=== PATIENT | male | born 1960 | race Caucasian/White ===

== ENCOUNTER 2023-06-05 14:27 | Emergency (ER) | payer OTHER, MEDICAID, SELFPAY ==
[2023-06-05] VITALS (12 sets, daily range): BP systolic 141–151; BP diastolic 72–73; PULSE 72–82; RESP 20–24; TEMP 36.6; O2SAT 87–100; BMI 45.9
--- NOTE | 2023-06-05 14:45 | DI.US.S_ITS ---
PROCEDURE: US PERIPH VENOUS LOW EXTREM RT INDICATIONS: EDEMA TECHNIQUE: Real-time imaging, as well as color and pulse Doppler interrogation, were performed of the lower extremity deep veins from the inguinal ligament to the popliteal fossa, with documentation of the visualized calf veins. COMPARISON: None. FINDINGS: The common femoral, femoral, and popliteal are normally compressible, and free of intraluminal thrombus. The calf veins could not be examined, secondary to pain in Александр's. Color and pulse Doppler demonstrate normal phasic intraluminal flow. There is normal augmentation response to distal compression maneuver. Multiple prominent right groin lymph nodes are seen. IMPRESSION: No findings of lower extremity deep venous thrombosis. Dictated by: Yuri Figueroa M.D. on 06/05/2023 at 16:29 Approved by: Yuri Figueroa M.D. on 06/05/2023 at 16:29
--- NOTE | 2023-06-05 14:45 | DI.RAD.S_ITS ---
PROCEDURE: XR CHEST 1V INDICATIONS: dyspnea TECHNIQUE: One view of the chest was acquired. COMPARISON: None. FINDINGS: Surgical changes and devices: None. Lungs and pleura: There is diffuse interstitial prominence bilaterally. No focal airspace opacities. No pleural effusion or pneumothorax. Mediastinum: Mediastinal contours appear normal. Heart size is enlarged. Bones and chest wall: No suspicious bony lesions. Overlying soft tissues appear unremarkable. IMPRESSION: Cardiomegaly and interstitial prominence suggesting congestive failure. Dictated by: Janette Mendoza M.D. on 06/05/2023 at 15:32 Approved by: Janette Mendoza M.D. on 06/05/2023 at 15:33
--- NOTE | 2023-06-05 14:49 | ED.EXTPRO ---
HPI - Extremity Problem General Chief complaint: Extremity Problem,Nontraumatic Stated complaint: R/leg swollen and red Time Seen by Provider: 06/05/23 14:38 Source: patient Mode of arrival: Wheelchair History of Present Illness HPI Narrative: 62-year-old male presents for right lower extremity redness and pain. Patient states that when he woke up this morning the leg was in his current condition. Incidentally found to be saturating 87% on room air. Patient states he is no diagnosed medical conditions. He states that every time he goes to different hospitals? they send me home with 6 or 7 different pills?, but he stopped taking them because he does not believe in regularly taking medicines. Uses smoke 2 packs of cigarettes daily, is down to 5 cigarettes daily. Related Data Previous Rx's Medication Instructions Recorded doxycycline hyclate 100 mg tablet 100 mg PO BID #14 tabs 06/05/23 clindamycin HCl 300 mg capsule 300 mg PO QID #40 caps 06/10/23 furosemide 40 mg tablet (Lasix) 40 mg PO DAILY #10 tabs 06/10/23 Allergies Allergy/AdvReac Type Severity Reaction Status Date / Time No Known Drug Allergies Allergy Verified 06/05/23 14:34 Review of Systems Review of Systems Narrative: Negative except as noted above Patient History Social History Smoking Status: Current some day smoker Smoking Status: Current some day smoker tobacco type: cigarettes Substance Use Type: marijuana Exam Initial Vital Signs Initial Vital Signs: Vital Signs Temperature 97.8 F 06/05/23 14:34 Pulse Rate 81 06/05/23 14:34 Respiratory Rate 22 06/05/23 14:34 Blood Pressure 141/73 H 06/05/23 14:34 Pulse Oximetry 87 L 06/05/23 14:34 Oxygen Delivery Method Room Air 06/05/23 14:34 Const: Awake, alert, no acute distress, appears chronically unwell, morbidly obese, hygiene poor Cardiac: regular rate, regular rhythm RESP: Bibasilar inspiratory crackles GI: Atraumatic, soft, obese, small reducible umbilical hernia MSK: Right lower extremity greater than left lower extremity, 3+ pitting edema to legs Skin: Warm, Dry, erythema right lower extremity Neuro: AO x3, CN II-XII grossly intact, moves all extremities Course Orders Ordered: Discontinued Medications Furosemide (Furosemide 40 Mg/4 Ml Vial) 40 mg IV NOW ONE Stop: 06/05/23 16:24 Last Admin: 06/05/23 16:32 Dose: 40 mg Documented By: ROSE Vital Signs Vital signs: Vital Signs - 8 hr 06/05/23 14:34 06/05/23 14:43 06/05/23 14:48 Temperature 97.8 F Pulse Rate 81 82 80 Pulse Rate [Right Dorsalis Pedis] Respiratory Rate 22 23 Blood Pressure 141/73 H Pulse Oximetry 87 L 96 98 Oxygen Delivery Method Room Air Nasal Cannula Oxygen Flow Rate 4 06/05/23 14:48 06/05/23 15:00 06/05/23 15:00 Temperature Pulse Rate 78 Pulse Rate [Right Dorsalis Pedis] Respiratory Rate Blood Pressure 148/73 H 150/72 H Pulse Oximetry 99 Oxygen Delivery Method Nasal Cannula Oxygen Flow Rate 4 06/05/23 15:23 06/05/23 15:24 06/05/23 15:30 Temperature Pulse Rate 78 Pulse Rate [Right Dorsalis Pedis] 74 Respiratory Rate 20 24 Blood Pressure Pulse Oximetry 94 100 Oxygen Delivery Method Nasal Cannula Nasal Cannula Oxygen Flow Rate 2 3 06/05/23 15:30 06/05/23 16:00 06/05/23 16:30 Temperature Pulse Rate 72 80 Pulse Rate [Right Dorsalis Pedis] Respiratory Rate 23 22 Blood Pressure 151/72 H Pulse Oximetry 100 95 Oxygen Delivery Method Oxygen Flow Rate 06/05/23 17:00 06/05/23 17:30 Temperature Pulse Rate 80 82 Pulse Rate [Right Dorsalis Pedis] Respiratory Rate 20 20 Blood Pressure Pulse Oximetry 94 93 Oxygen Delivery Method Oxygen Flow Rate MDM - Extremity (Nontraumatic) Differential Diagnosis Differential diagnosis: Likely cellulitis, deep venous thrombosis of upper extremity and lower extremity edema Lab Data 06/05/23 15:08 06/05/23 15:08 Labs: Lab Results 06/05/23 06/05/23 Range/Units 15:08 16:25 WBC 9.1 (4.5-11.0) X10^3/uL RBC 4.41 L (4.5-5.9) X10^6/uL Hgb 14.0 (13.5-17.5) g/dL Hct 41.5 (41-53) % MCV 93.9 (80-100) fL MCH 31.6 (26-34) PG MCHC 33.7 (30-36) % RDW 13.7 (11.6-14.8) % Plt Count 193 (150-400) X10^3/uL Neut % (Auto) 79.4 H (50-75) % Lymph % (Auto) 12.8 L (25-40) % [place] % (Auto) 6.7 (3-14) % Eos % (Auto) 0.8 L (2-4) % Baso % (Auto) 0.3 (0-2) % Neut # (Auto) 7200 H (0424-0538) /uL Lymph # (Auto) 1200 (5174-2683) /uL [place] # (Auto) 600 (0-900) /uL Eos # (Auto) 100 (0-450) /uL Baso # (Auto) 0 (0-100) /uL PT 14.7 H (9.4-12.5) SECONDS INR 1.3 (0.9-1.3) Sodium 136 L (137-145) mmol/L Potassium 3.4 (3.4-5.1) mmol/L Chloride 98 (98-107) mmol/L Carbon Dioxide 32 (22-32) mmol/L BUN 10 (9-20) mg/dL Creatinine 0.50 L (0.66-1.25) mg/dL Estimated GFR > 60 (>60) mL/min BUN/Creatinine Ratio 20.0 (6-22) Glucose 159 H (80-110) mg/dL Calcium 9.0 (8.4-10.2) mg/dL Magnesium 1.8 (1.6-2.3) mg/dL Total Bilirubin 0.7 (0.2-1.3) mg/dL AST 29 (17-59) IU/L ALT 25 (<50) IU/L Alkaline Phosphatase 125 (38-126) U/L Total Creatine Kinase 101 (55-170) U/L Troponin I < 0.012 (0.01-0.034) ng/mL NT-Pro-B Natriuret Pep 277 H (<125) pg/mL Total Protein 7.0 (6.3-8.2) g/dL Albumin 3.6 (3.5-5.0) g/dL Globulin 3.4 (1.7-4.1) g/dL Albumin/Globulin Ratio 1.1 (1.0-2.8) U Opiates 300ng/mL cut Negative (Negative) Ur Oxycodone Screen Negative (Negative) Urine Methadone Screen Negative (Negative) Ur Barbiturates Screen Negative (Negative) U Tricyclic Antidepress Negative (Negative) Ur Phencyclidine Scrn Negative (Negative) Ur Amphetamines Screen Positive H (Negative) U Methamphetamines Scrn Positive H (Negative) Ur MDMA Scrn (Ecstasy) Negative (Negative) U Benzodiazepines Scrn Negative (Negative) Urine Cocaine Screen Negative (Negative) U Marijuana (THC) Screen Negative (Negative) Ethyl Alcohol < 10 ( - 10) mg/dL MDM Narrative Medical decision making narrative: This is a chronically unwell appearing patient presenting for lower extremity pain and swelling, especially in his right lower extremity. Incidentally found to be hypoxemic at 87 on room air. Patient adamantly denies shortness of breath. Patient states that he used to be diagnosed with fluid overload, however he also states ?I would rather than take medications from a doctor every day, I'm just not like that. Strong dopplerable pulses in bilateral dorsalis pedis regions. Chest x-ray shows signs of volume overload and congestion, no acute infectious process. We will order a dose of Lasix. Laboratory work is reviewed, WBC count 9.1 with neutrophil 79% renal function normal, troponin negative. Pending ultrasound imaging. UDS positive for amphetamines. Patient has urinated well and is no longer hypoxic. Again patient states that he hates taking medications every day from doctors and does not want to start on a chronic medication. Ultrasound of the lower extremity shows no evidence of DVT. We will treat as cellulitis, however suspect that a, question of patient's lower extremity swelling and erythema is related to venous stasis. Discharge with doxycycline. ED return precautions discussed at bedside. Patient expressed understanding of the plan and is in agreement at this time. All questions answered at the time of discharge. Discharge Plan Departure Patient Disposition: Home Clinical Impression: Cellulitis Instructions: DI for Cellulitis -- Adult Prescriptions: New doxycycline hyclate 100 mg tablet 100 mg PO BID Qty: 14 0RF No Action clindamycin HCl 300 mg capsule 300 mg PO QID Qty: 40 0RF furosemide [Lasix] 40 mg tablet 40 mg PO DAILY Qty: 10 0RF Referrals: Miscellaneous,Doctor, MD [Primary Care Provider] - Stand Alone Forms: Patient Portal/API
[2023-06-05 15:24] LABS: Add Manual Diff / Slide Review NO; Basophils Absolute Auto 0 /uL (0-100); Basophils Percent Auto 0.3 % (0-2); Eosinophils Absolute Auto 100 /uL (0-450); Eosinophils Percent Auto 0.8 % (2-4); Hematocrit 41.5 % (41-53); Lymphocytes Absolute Auto 1200 /uL (1100-4500); Lymphocytes Percent Auto 12.8 % (25-40); Mean Corpuscular HGB Conc 33.7 % (30-36); Mean Corpuscular Hemoglobin 31.6 PG (26-34); Mean Corpuscular Volume 93.9 fL (80-100); Monocytes Absolute Auto 600 /uL (0-900); Monocytes Percent Auto 6.7 % (3-14); Neutrophils Absolute Auto 7200 /uL (1500-7000); Neutrophils Percent Auto 79.4 % (50-75); Platelet Count 193 X10^3/uL (150-400); Red Blood Cell Count 4.41 X10^6/uL (4.5-5.9); Red Cell Distribution Width 13.7 % (11.6-14.8); White Blood Cell Count 9.1 X10^3/uL (4.5-11.0)
[2023-06-05 15:31] LABS: INR 1.3 (0.9-1.3); Prothrombin Time 14.7 SECONDS (9.4-12.5)
[2023-06-05 15:49] LABS: Alanine Aminotransferase 25 IU/L (<50); Albumin 3.6 g/dL (3.5-5.0); Albumin Globulin Ratio 1.1 (1.0-2.8); Alkaline Phosphatase 125 U/L (38-126); Aspartate Aminotransferase 29 IU/L (17-59); Bilirubin Total 0.7 mg/dL (0.2-1.3); Blood Urea Nitrogen 10 mg/dL (9-20); Carbon Dioxide 32 mmol/L (22-32); Chloride 98 mmol/L (98-107); Creatine Kinase 101 U/L (55-170); Estimated Glomerular Filt Rate > 60 mL/min (>60); Globulin 3.4 g/dL (1.7-4.1); Glucose 159 mg/dL (80-110); HEMOLYSIS < 15 (0-50); Potassium 3.4 mmol/L (3.4-5.1); Sodium 136 mmol/L (137-145)
[2023-06-05 15:50] LABS: Ethanol (ETOH) < 10 mg/dL; Magnesium 1.8 mg/dL (1.6-2.3)
[2023-06-05 16:01] LABS: NT-proBNP (BNP-Adult 18+) 277 pg/mL (<125); Troponin I < 0.012 ng/mL (0.01-0.034)
[2023-06-05] MEDS: FUROSEMIDE 40 MG/4 ML VIAL IV (16:32)
[2023-06-05 16:37] LABS: UR Morphine/Opiate cutoff 300 Negative (Negative); Ur Creatinine Normal (Normal); Ur Specific Gravity Normal (Normal); Urine Amphetamines Positive (Negative); Urine Barbiturates Negative (Negative); Urine Benzodiazepines Negative (Negative); Urine Cocaine Negative (Negative); Urine MDMA Negative (Negative); Urine Methadone Negative (Negative); Urine Methamphetamines Positive (Negative); Urine Oxycodone Negative (Negative); Urine Phencyclidine Negative (Negative); Urine Tetrahydrocannabinol Negative (Negative); Urine Tricyclic Antidepressant Negative (Negative); Urine pH Normal (Normal)
--- NOTE | 2023-06-05 18:12 | PC.NURSE ---
pt yelling from room, requesting empty urinal, stating I'll pee on this bed and this ground it's not like I have to keep it up. you people are just out there talking and not doing shit.. verbal education attempted, pt cursing at staff, given urinal.
--- NOTE | 2023-06-05 18:29 | PC.NURSE ---
at time of d/c pt's IV site leaking on dc patient signature page, disposed of
== END 2023-06-05 18:30 | disposition home or self-care (01) ==
PROVIDERS: Emergency Provider Emergency Medicine
DX: L03.116 Cellulitis of left lower limb (principal); I51.7 Cardiomegaly
CPT/HCPCS: 71045; 80053; 80305; 80320; 82550; 83735; 83880; 84484; 85025; 85610; 93971; 96374; 99284; J1940

== ENCOUNTER 2023-06-10 11:13 | Emergency (ER) | payer OTHER, MEDICAID, SELFPAY ==
[2023-06-10 11:23] VITALS: BP 166/70; PULSE 76; RESP 18; TEMP 36.4; O2SAT 92; BMI 44.9
--- NOTE | 2023-06-10 11:39 | DI.RAD.S_ITS ---
PROCEDURE: XR CHEST 1V INDICATIONS: leg swelling TECHNIQUE: One view of the chest was acquired. COMPARISON: [facility], CR, XR CHEST 1V, 06/05/2023, 14:42. FINDINGS: Surgical changes and devices: None. Lungs and pleura: There are diffuse pulmonary interstitial markings and pulmonary vascular engorgement. Mediastinum: Mediastinal contours appear normal. Heart size is normal. Bones and chest wall: No suspicious bony lesions. Overlying soft tissues appear unremarkable. IMPRESSION: Interstitial pulmonary markings and vascular engorgement suggesting fluid overload. Dictated by: Janette Mendoza M.D. on 06/10/2023 at 12:11 Approved by: Janette Mendoza M.D. on 06/10/2023 at 12:11
[2023-06-10] MEDS: KETOROLAC 30 MG/ML VIAL IV (12:06)
[2023-06-10 12:18] LABS: Add Manual Diff / Slide Review NO; Basophils Absolute Auto 0 /uL (0-100); Basophils Percent Auto 0.5 % (0-2); Eosinophils Absolute Auto 100 /uL (0-450); Hematocrit 41.8 % (41-53); Lymphocytes Absolute Auto 1000 /uL (1100-4500); Lymphocytes Percent Auto 19.7 % (25-40); Mean Corpuscular HGB Conc 33.6 % (30-36); Mean Corpuscular Hemoglobin 31.1 PG (26-34); Mean Corpuscular Volume 92.6 fL (80-100); Monocytes Absolute Auto 200 /uL (0-900); Monocytes Percent Auto 4.6 % (3-14); Neutrophils Absolute Auto 3600 /uL (1500-7000); Neutrophils Percent Auto 73.2 % (50-75); Platelet Count 240 X10^3/uL (150-400); Red Blood Cell Count 4.51 X10^6/uL (4.5-5.9); Red Cell Distribution Width 13.6 % (11.6-14.8)
[2023-06-10 12:20] LABS: Lactate (Lactic Acid) 1.1 mmol/L (0.7-2.1)
[2023-06-10 12:21] LABS: Alanine Aminotransferase 20 IU/L (<50); Albumin 3.4 g/dL (3.5-5.0); Albumin Globulin Ratio 0.9 (1.0-2.8); Alkaline Phosphatase 106 U/L (38-126); Aspartate Aminotransferase 23 IU/L (17-59); BUN Creatinine Ratio 24.3 (6-22); Bilirubin Total 0.6 mg/dL (0.2-1.3); Blood Urea Nitrogen 18 mg/dL (9-20); Calcium 8.9 mg/dL (8.4-10.2); Carbon Dioxide 36 mmol/L (22-32); Chloride 98 mmol/L (98-107); Creatine Kinase 77 U/L (55-170); Estimated Glomerular Filt Rate > 60 mL/min (>60); Globulin 3.8 g/dL (1.7-4.1); Glucose 111 mg/dL (80-110); HEMOLYSIS < 15 (0-50); Lipase 31 U/L (23-300); Potassium 3.5 mmol/L (3.4-5.1); Sodium 136 mmol/L (137-145); Total Protein 7.2 g/dL (6.3-8.2)
[2023-06-10 12:33] LABS: NT-proBNP (BNP-Adult 18+) 197 pg/mL (<125); Troponin I < 0.012 ng/mL (0.01-0.034)
[2023-06-10 12:37] LABS: Procalcitonin 0.06 ng/mL (<0.5)
--- NOTE | 2023-06-10 12:52 | ED_ITS ---
HPI - Extremity Problem General Chief complaint: Extremity Problem,Nontraumatic Stated complaint: LEGS FEEL ON FIRE GETTING WORSE Time Seen by Provider: 06/10/23 11:23 Source: patient, RN notes reviewed and old records reviewed Mode of arrival: Ambulatory Limitations: no limitations History of Present Illness HPI Narrative: 62-year-old male history of hypertension, CHF who presents with complaint of lower extremity swelling that has been worsening and his legs feeling like they are on fire. Patient states he is had a history fluid overload in the past. He states he had some chills last night. He denies chest pain or pressure but has had some shortness of breath. He denies orthopnea but states that he is had increasing swelling of his bilateral lower extremities initially was more on the left but now has including the right. Patient states there is redness that has been spreading up his legs and he is had increasing edema over time. Patient states no nausea or vomiting. No diarrhea constipation. He is supposed to be on entero estero, diuretics states that he did take doxycycline he was prescribed. He a compound fracture in his leg that required a flap with a muscle in his left lower extremity in the past in 2012 timeframe. Patient states no other surgeries or cardiac interventions. No known drug allergies. He denies tobacco, occasional alcohol he denies any recreational drugs but had a positive UDS for amphetamines and methamphetamines on 06/05/2023 and is not on any medications that would be expected to make this positive. Related Data Previous Rx's Medication Instructions Recorded doxycycline hyclate 100 mg tablet 100 mg PO BID #14 tabs 06/05/23 clindamycin HCl 300 mg capsule 300 mg PO QID #40 caps 06/10/23 furosemide 40 mg tablet (Lasix) 40 mg PO DAILY #10 tabs 06/10/23 Allergies Allergy/AdvReac Type Severity Reaction Status Date / Time No Known Drug Allergies Allergy Verified 06/05/23 14:34 Review of Systems Review of Systems ROS Unobtainable: All systems reviewed & are unremarkable except as noted in HPI and below Patient History Social History Smoking Status: Current some day smoker Smoking Status: Current some day smoker tobacco type: cigarettes Substance Use Type: marijuana Exam Narrative Exam Narrative: GENERAL: Alert and oriented x three, obese male in mild distress. HEENT: Head normocephalic, atraumatic, EOMI, pupils reactive, face symmetric, moist mucous membranes NECK: Supple, full range of motion CARDIOVASCULAR: Regular rate and rhythm without murmurs, rubs or gallops. 2+ bilateral lower extremity edema. RESPIRATORY: Breath decreased bilaterally, no wheezes rales or rhonchi noted but exam is difficult secondary to habitus. ABDOMEN: Soft, nontender. Normoactive bowel sounds all 4 quadrants. No guarding or rebound, rigidity, no mass : No CVA tenderness EXTREMITIES: Normal range of motion, no clubbing, patient has swelling of bilateral feet extending up towards his knees and thighs. Patient does have appears to be some chronic venous stasis changes but with overlying erythema. There is small areas of skin breakdown small amount of weeping fluid. There are no large lacerations or wounds. Patient does have some deformity of the left calf consistent with his prior surgery.. Neurovascularly intact. Cap refill less than 2 seconds bilateral lower extremities. Patient has appropriate range of motion. He is tender to touch throughout. NEUROLOGICAL: Cranial nerves II through XII grossly intact. Moving all extremities SKIN: Warm, dry, no petechiae, please see note above. Initial Vital Signs Initial Vital Signs: Vital Signs Temperature 97.5 F L 06/10/23 11:23 Pulse Rate 76 06/10/23 11:23 Respiratory Rate 18 06/10/23 11:23 Blood Pressure 166/70 H 06/10/23 11:23 Pulse Oximetry 92 06/10/23 11:23 Oxygen Delivery Method Room Air 06/10/23 11:23 Course Orders Ordered: ED Orders 06/10/23 11:39 XR chest 1V Stat EKG-12 Lead Stat 06/10/23 11:55 Complete Blood Count AUTO DIFF Stat Comprehensive Metabolic Panel Stat Lactate (Lactic Acid) Stat Lipase Stat NT-proBNP (BNP-Adult 18+) Stat Procalcitonin Stat Troponin & CK Cardiac Panel Stat 06/10/23 12:49 Blood Culture Stat 06/10/23 14:32 Urine Drug Screen, Rapid Stat 06/10/23 14:57 Consult to [facility] [place] [facility] [employer] Consult[facility] Stat Discontinued Medications Furosemide (Furosemide 40 Mg/4 Ml Vial) 40 mg IV NOW ONE Stop: 06/10/23 13:03 Last Admin: 06/10/23 13:09 Dose: 40 mg Documented By: FIDEL Clindamycin Phosphate (Cleocin) 900 mg in 50 mls @ 50 mls/hr IV NOW ONE Stop: 06/10/23 14:02 Last Infusion: 06/10/23 14:13 Dose: Infused Documented By: Admin: 06/10/23 13:10 Dose: 50 mls/hr Documented By: FIDEL Ketorolac Tromethamine (Ketorolac 30 Mg/Ml Vial) 30 mg IV NOW ONE Stop: 06/10/23 12:03 Last Admin: 06/10/23 12:06 Dose: 30 mg Documented By: FIDEL Morphine Sulfate (Morphine 4 Mg/Ml Inj) 4 mg IV NOW ONE Stop: 06/10/23 13:03 Last Admin: 06/10/23 13:09 Dose: 4 mg Documented By: FIDEL Vital Signs Vital signs: Vital Signs - 8 hr 06/10/23 11:23 06/10/23 14:15 06/10/23 14:15 Temperature 97.5 F L Pulse Rate 76 71 71 Respiratory Rate 18 Blood Pressure 166/70 H 131/60 Pulse Oximetry 92 92 93 Oxygen Delivery Method Room Air Room Air 06/10/23 14:30 06/10/23 14:31 06/10/23 14:31 Temperature Pulse Rate 70 66 Respiratory Rate Blood Pressure 130/60 Pulse Oximetry 97 96 Oxygen Delivery Method Room Air MDM - Extremity (Nontraumatic) Lab Data 06/10/23 11:55 06/10/23 11:55 Labs: Lab Results 06/10/23 06/10/23 Range/Units 11:55 14:32 WBC 5.0 (4.5-11.0) X10^3/uL RBC 4.51 (4.5-5.9) X10^6/uL Hgb 14.0 (13.5-17.5) g/dL Hct 41.8 (41-53) % MCV 92.6 (80-100) fL MCH 31.1 (26-34) PG MCHC 33.6 (30-36) % RDW 13.6 (11.6-14.8) % Plt Count 240 (150-400) X10^3/uL Neut % (Auto) 73.2 (50-75) % Lymph % (Auto) 19.7 L (25-40) % [place] % (Auto) 4.6 (3-14) % Eos % (Auto) 2.0 (2-4) % Baso % (Auto) 0.5 (0-2) % Neut # (Auto) 3600 (6432-5060) /uL Lymph # (Auto) 1000 L (8367-6633) /uL [place] # (Auto) 200 (0-900) /uL Eos # (Auto) 100 (0-450) /uL Baso # (Auto) 0 (0-100) /uL Sodium 136 L (137-145) mmol/L Potassium 3.5 (3.4-5.1) mmol/L Chloride 98 (98-107) mmol/L Carbon Dioxide 36 H (22-32) mmol/L BUN 18 (9-20) mg/dL Creatinine 0.74 (0.66-1.25) mg/dL Estimated GFR > 60 (>60) mL/min BUN/Creatinine Ratio 24.3 H (6-22) Glucose 111 H (80-110) mg/dL Lactate 1.1 (0.7-2.1) mmol/L Calcium 8.9 (8.4-10.2) mg/dL Total Bilirubin 0.6 (0.2-1.3) mg/dL AST 23 (17-59) IU/L ALT 20 (<50) IU/L Alkaline Phosphatase 106 (38-126) U/L Total Creatine Kinase 77 (55-170) U/L Troponin I < 0.012 (0.01-0.034) ng/mL NT-Pro-B Natriuret Pep 197 H (<125) pg/mL Total Protein 7.2 (6.3-8.2) g/dL Albumin 3.4 L (3.5-5.0) g/dL Globulin 3.8 (1.7-4.1) g/dL Albumin/Globulin Ratio 0.9 L (1.0-2.8) Lipase 31 (23-300) U/L Procalcitonin 0.06 (<0.5) ng/mL U Opiates 300ng/mL cut Positive H (Negative) Ur Oxycodone Screen Negative (Negative) Urine Methadone Screen Negative (Negative) Ur Barbiturates Screen Negative (Negative) U Tricyclic Antidepress Negative (Negative) Ur Phencyclidine Scrn Negative (Negative) Ur Amphetamines Screen Positive H (Negative) U Methamphetamines Scrn Positive H (Negative) Ur MDMA Scrn (Ecstasy) Positive H (Negative) U Benzodiazepines Scrn Negative (Negative) Urine Cocaine Screen Negative (Negative) U Marijuana (THC) Screen Negative (Negative) Imaging Data Chest x-ray: Radiologist's Impression: [address] [address] XRay Report Signed Patient: Rudy Simon MR#: [id number] : 1960 Acct:[id number] Age/Sex: 62 / M Date of Service: 06/10/23 Loc: ED Accession Number: [id number] Procedure: XR chest 1V Ordering Provider: Dayanara Ruiz D.O. PROCEDURE: XR CHEST 1V INDICATIONS: leg swelling TECHNIQUE: One view of the chest was acquired. COMPARISON: [facility], , XR CHEST 1V, 06/05/2023, 14:42. FINDINGS: Surgical changes and devices: None. Lungs and pleura: There are diffuse pulmonary interstitial markings and pulmonary vascular engorgement. Mediastinum: Mediastinal contours appear normal. Heart size is normal. Bones and chest wall: No suspicious bony lesions. Overlying soft tissues appear unremarkable. IMPRESSION: Interstitial pulmonary markings and vascular engorgement suggesting fluid overload. Dictated by: Janette Mendoza M.D. on 06/10/2023 at 12:11 Approved by: Janette Mendoza M.D. on 06/10/2023 at 12:11 ECG Data Attestation EKG: I personally reviewed and interpreted this ECG as follows: Prior ECG tracings: not available for review Interpretation: Sinus rhythm rate of 67 OK 196 QRS of 112 and QTC of 467. No acute ST elevation or depression noted. No prior for comparison. MDM Narrative Medical decision making narrative: 62-year-old male reported hypertension and CHF in the past. Patient clinically appears to have CHF with overlying infection with chronic venous stasis changes. Patient's CBC does not show any leukocytosis hemoglobin of 14 platelets 240 electrolytes are appropriate renal functions appropriate causes 111. CO2 is 36. Lactate is 1.1 with negative troponin and a BNP of 197. But chest x-ray does show interstitial changes consistent with pulmonary edema. Patient had procalcitonin which was negative. DVT ultrasound of the left leg was negative on the . Patient patient's history I do not think we need to repeat this. Patient had a dose of Toradol states quite uncomfortable. We will give additional dose of pain medication. Woody here in the department and re- evaluation. Patient was hypoxic on last visit but has not been thus far today. Did obtain records from [facility]. Patient was seen in October of 2022. Had a 3 day ICU stay was found asleep in a [employer] truck in the ER driveway was found to have O2 sat of 60% lethargic was ultimately intubated with a acute respiratory failure after failure on BiPAP secondary to ongoing respiratory acidosis and ultimately believed to have congestive heart failure as the source of his symptoms. Patient was discharged home on farxiga, Entresto and torsemide. Patient states he has not been taking these medications. He did have an echo at that time which showed an EF of 60% normal right ventricle size, mildly dilated left ventricle. No pericardial effusion. And function no valvular abnormalities. On recheck patient appears more comfortable. He did have some hypoxia but intermittent. This was after some narcotic pain medication. Patient is quite adamant he does not wish to stay. He is open to being diuresed. He has medications at home including diuretics which he has not been taking since his discharge from [facility]. Discussed with patient he states he does not need a refill of diuretics but is open to the antibiotic. We discussed he does need to take them he needs to follow up with primary care because he likely needs to be on maintenance medications regularly. He expresses understanding. He is open to meeting with our [employer]OCIATE help set up primary care follow up as he states he lives in the area now. Discharge Plan Departure Patient Disposition: Home Clinical Impression: Congestive heart failure (CHF), Cellulitis of both lower extremities, Chronic venous stasis Instructions: DI for Heart Failure Activity Restrictions/Additional Instructions: Please follow-up with primary care. Use the resources provided by our social worker delinquency prevention today. Start taking the diuretics you were prescribed. Please take your other medications prescribed from [facility] as well. Prescription for antibiotic is included but I do not think your legs will improve until you take the diuretics in the swelling improves. Prescription sent to [facility] in [place]. Please return for new or worsening symptoms increasing swelling, new chest pain, shortness of breath, persistent vomiting, rapidly worsening swelling in her legs, fevers, increasing redness or other new or concerning changes. Prescriptions: New clindamycin HCl 300 mg capsule 300 mg PO QID Qty: 40 0RF furosemide [Lasix] 40 mg tablet 40 mg PO DAILY Qty: 10 0RF No Action doxycycline hyclate 100 mg tablet 100 mg PO BID Qty: 14 0RF Referrals: Miscellaneous,Doctor, MD [Primary Care Provider] - Stand Alone Forms: Patient Portal/API
[2023-06-10] MEDS: FUROSEMIDE 40 MG/4 ML VIAL IV (13:09)
[2023-06-10] MEDS: MORPHINE 4 MG/ML INJ IV (13:09)
[2023-06-10] MEDS: CLINDAMYCIN 900 MG/50 ML PIGGYBACK 50 MG IV (13:10)
[2023-06-10 14:15] VITALS: BP 131/60; PULSE 71; O2SAT 92; O2SAT 93
[2023-06-10 14:30] VITALS: PULSE 70; O2SAT 97
[2023-06-10 14:31] VITALS: BP 130/60; PULSE 66; O2SAT 96
[2023-06-10 14:57] LABS: UR Morphine/Opiate cutoff 300 Positive (Negative); Ur Creatinine Normal (Normal); Ur Specific Gravity Normal (Normal); Urine Amphetamines Positive (Negative); Urine Cocaine Negative (Negative); Urine Methamphetamines Positive (Negative); Urine Tetrahydrocannabinol Negative (Negative); Urine pH Normal (Normal)
[2023-06-10 14:58] LABS: Urine Barbiturates Negative (Negative); Urine Benzodiazepines Negative (Negative); Urine MDMA Positive (Negative); Urine Methadone Negative (Negative); Urine Oxycodone Negative (Negative); Urine Phencyclidine Negative (Negative); Urine Tricyclic Antidepressant Negative (Negative)
--- NOTE | 2023-06-10 15:26 | CM.SWNOTE ---
ED LEAK HUNTER Note LEAK HUNTER receives consult due to patient's need for PCP. Patient is 62 y/o male who presents to ED for the second time in a week due to concerns for cellulits on leg and leg pain. Patient is positive for Methamphetamine, Amphetamine, Opiates and MDMA but patient denies any recreational drug use. LEAK HUNTER enters room and patient endorses need for PCP. LEAK HUNTER calls local clinics and it is reported that they do not take patient's insurance. LEAK HUNTER conducts search on patient's insurance website and identifies [facility] in [place] as provider. LEAK HUNTER calls [facility] and schedules patient for ED f/u /establish care appt for 07/14/[address] Saba. It is reported that they will call patient if there are any cancellations and patient can be seen sooner. Patient endorses he has a vehicle and can transport himself. Plan: patient to d/c to home upon medical clearance, patient to f/u with PCP appt. Jenna Gallagher, PRODUCTION SUPPORT ENGINEER
== END 2023-06-10 15:28 | disposition home or self-care (01) ==
PROVIDERS: Emergency Provider Emergency Medicine
DX: I11.0 Hypertensive heart disease with heart failure (principal); I50.9 Heart failure, unspecified; L03.116 Cellulitis of left lower limb; L03.115 Cellulitis of right lower limb; I87.8 Other specified disorders of veins
CPT/HCPCS: 36415; 71045; 80053; 80305; 82550; 83605; 83690; 83880; 84145; 84484; 85025; 87040; 93005; 96365; 96375; 99284; J1885; J1940; J2270

== ENCOUNTER 2023-07-04 18:22 | Emergency (ER) | payer OTHER, MEDICAID, SELFPAY ==
[2023-07-04 18:51] VITALS: BP 145/76; PULSE 81; RESP 16; TEMP 36.7; O2SAT 91
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
[2023-07-04 19:30] VITALS: BP 145/76; PULSE 85; RESP 20; TEMP 36.7; O2SAT 91
== END 2023-07-04 19:41 | disposition home or self-care (01) ==
PROVIDERS: Emergency Provider Emergency Medicine
DX: K42.9 Umbilical hernia without obstruction or gangrene (principal); L03.116 Cellulitis of left lower limb; L03.115 Cellulitis of right lower limb
CPT/HCPCS: 99281

== ENCOUNTER 2023-08-24 17:21 | Emergency (ER) | payer OTHER, MEDICAID, SELFPAY ==
[2023-08-24] VITALS (7 sets, daily range): BP systolic 122–155; BP diastolic 62–83; PULSE 74–85; RESP 14–21; TEMP 36.6; O2SAT 90–98; BMI 43.6
--- NOTE | 2023-08-24 17:33 | DI.RAD.S_ITS ---
PROCEDURE: XR CHEST 1V INDICATIONS: suspected sepsis TECHNIQUE: One view of the chest was acquired. COMPARISON: [facility], CR, XR CHEST 1V, 06/10/2023, 11:41. FINDINGS: Surgical changes and devices: None. Lungs and pleura: Diffuse interstitial thickening bilaterally, chronic. No consolidations, significant pleural effusion or pneumothorax. Mediastinum: Moderate cardiomegaly without significant central venous congestion. Bones and chest wall: No suspicious bony lesions. Overlying soft tissues appear unremarkable. IMPRESSION: Cardiomegaly and diffuse interstitial thickening may indicate chronic CHF with underlying interstitial edema. This can also be seen in pneumonitis, viral or atypical. Dictated by: Hilda Wise M.D. on 08/24/2023 at 18:29 Approved by: Hilda Wise M.D. on 08/24/2023 at 18:30
[2023-08-24 18:02] LABS: Add Manual Diff / Slide Review NO; Basophils Absolute Auto 0 /uL (0-100); Basophils Percent Auto 0.8 % (0-2); Eosinophils Absolute Auto 100 /uL (0-450); Eosinophils Percent Auto 1.2 % (2-4); Hematocrit 45.4 % (41-53); Hemoglobin 15.4 g/dL (13.5-17.5); Lymphocytes Absolute Auto 1500 /uL (1100-4500); Lymphocytes Percent Auto 26.3 % (25-40); Mean Corpuscular Hemoglobin 31.2 PG (26-34); Mean Corpuscular Volume 91.7 fL (80-100); Monocytes Absolute Auto 400 /uL (0-900); Monocytes Percent Auto 6.8 % (3-14); Neutrophils Absolute Auto 3700 /uL (1500-7000); Neutrophils Percent Auto 64.9 % (50-75); Platelet Count 236 X10^3/uL (150-400); Red Blood Cell Count 4.95 X10^6/uL (4.5-5.9); Red Cell Distribution Width 14.3 % (11.6-14.8); White Blood Cell Count 5.7 X10^3/uL (4.5-11.0)
[2023-08-24] MEDS: SODIUM CHLORIDE 0.9% 1,000 ML 1000 ML IV (18:04)
[2023-08-24 18:08] LABS: PTT Partial Thromboplastin Tim 37 SECONDS (25.1-36.5)
--- NOTE | 2023-08-24 18:10 | ED.SKABFB ---
HPI - Skin/Abscess/Foreign Bdy General Chief complaint: Skin/Abscess/Foreign Body Stated complaint: left leg swelling Time Seen by Provider: 08/24/23 17:48 Source: patient Mode of arrival: Wheelchair Limitations: no limitations History of Present Illness HPI narrative: 63-year-old male with history of congestive heart failure on as needed oxygen, amphetamine use, morbid obesity presents by private vehicle for bilateral lower extremity swelling, [id number]. Seen several times for intermittent cellulitis. Patient states that he has been changing his Lasix regimen, sometimes taking less, sometimes taking more. 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 He intermittently will lift his legs up to help try to decrease the swelling, but this does not seem to help. Related Data Home Medications Medication Instructions Recorded Confirmed sacubitril 24 mg-valsartan 26 mg 1 tab PO BID 07/04/23 08/04/23 tablet (Entresto) Previous Rx's Medication Instructions Recorded furosemide 40 mg tablet (Lasix) 40 mg PO DAILY #10 tabs 06/10/23 fluocinolone 0.025 % topical cream 1 applic topical BID #15 grams 07/04/23 hydrocortisone 0.5 % topical cream 1 applic topical TID PRN rash 07/04/23 #28.4 grams clindamycin HCl 150 mg capsule 450 mg (3 x 150 mg) PO TID 7 days 08/24/23 #63 caps doxycycline hyclate 100 mg tablet 100 mg PO BID #14 tabs 08/24/23 tramadol 50 mg tablet 50 mg PO Q8H PRN pain #10 tabs 08/24/23 Allergies Allergy/AdvReac Type Severity Reaction Status Date / Time No Known Drug Allergies Allergy Verified 08/24/23 17:32 Review of Systems Review of Systems Narrative: Negative except as noted above Patient History Medical History Hx of open fracture Social History Smoking Status: Current some day smoker Smoking Status: Current some day smoker tobacco type: cigarettes Substance Use Type: marijuana and amphetamines Exam Initial Vital Signs Initial Vital Signs: Vital Signs Temperature 97.8 F 08/24/23 17:24 Pulse Rate 85 08/24/23 17:24 Respiratory Rate 18 08/24/23 17:24 Blood Pressure 125/83 08/24/23 17:24 Pulse Oximetry 92 08/24/23 17:24 Oxygen Delivery Method Room Air 08/24/23 17:24 Const: Awake, alert, no acute distress, appears chronically unwell, older than stated age Cardiac: regular rate, regular rhythm RESP: On supplemental nasal cannula, bibasilar crackles GI: Atraumatic, soft, nontender, nondistended, no rebound, no guarding MSK: Bilateral lower extremity pitting edema to thighs, venous stasis changes bilaterally, erythema to lateral aspect of left lower extremity without fluctuance Skin: Warm, Dry, cellulitis left distal lower extremity Neuro: AO x3, CN II-XII grossly intact, moves all extremities Course Orders Ordered: ED Orders 08/24/23 17:33 XR chest 1V Stat RT Consult Eval and Treat NOW 08/24/23 17:47 EKG-12 Lead Stat 08/24/23 17:50 Complete Blood Count AUTO DIFF Stat Comprehensive Metabolic Panel Stat Lactate (Lactic Acid) Stat Lipase Stat PTT Partial Thromboplastin Jeremy Stat Procalcitonin Stat Prothrombin Time INR Stat 08/24/23 18:08 Blood Culture Stat Discontinued Medications Furosemide (Furosemide 40 Mg/4 Ml Vial) 40 mg IV NOW ONE Stop: 08/24/23 18:31 Last Admin: 08/24/23 18:32 Dose: 40 mg Documented By: LARON Sodium Chloride (Normal Saline 0.9%) 1,000 mls @ 1,000 mls/hr IV BOLUS ONE Stop: 08/24/23 18:31 Last Infusion: 08/24/23 18:17 Dose: Infused Documented By: Infusion: 08/24/23 18:16 Dose: 0 mls/hr Documented By: Admin: 08/24/23 18:04 Dose: 1,000 mls/hr Documented By: LARON Furosemide 60 mg/ Sodium (Chloride) 56 mls @ 112 mls/hr IV NOW ONE Stop: 08/24/23 18:17 Last Admin: 08/24/23 18:29 Dose: Not Given Documented By: LARON Ondansetron HCl (Ondansetron 4 Mg/2 Ml Inj) 4 mg IV NOW PRN PRN Reason: Nausea And Vomiting Ondansetron HCl (Ondansetron 4 Mg Odt) 4 mg SL NOW PRN PRN Reason: Nausea And Vomiting Vital Signs Vital signs: Vital Signs - 8 hr 08/24/23 17:24 08/24/23 17:40 08/24/23 17:41 Temperature 97.8 F Pulse Rate 85 84 84 Respiratory Rate 18 17 21 Blood Pressure 125/83 Pulse Oximetry 92 Oxygen Delivery Method Room Air Oxygen Flow Rate 08/24/23 17:41 08/24/23 18:00 08/24/23 18:00 Temperature Pulse Rate 80 Respiratory Rate 14 Blood Pressure 141/75 H 138/62 Pulse Oximetry 90 L Oxygen Delivery Method Nasal Cannula Oxygen Flow Rate 3 08/24/23 18:30 08/24/23 18:30 08/24/23 19:00 Temperature Pulse Rate 74 77 Respiratory Rate Blood Pressure 122/66 Pulse Oximetry 98 91 Oxygen Delivery Method Nasal Cannula Oxygen Flow Rate 3 08/24/23 19:01 08/24/23 19:01 Temperature Pulse Rate 77 Respiratory Rate 18 Blood Pressure 155/83 H Pulse Oximetry 93 Oxygen Delivery Method Oxygen Flow Rate MDM - Skin/Abscess/Foreign Bdy Differential Diagnosis Differential diagnosis: Likely abscess of skin or subcutaneous tissue, viral exanthem and dermatophytosis Lab Data 08/24/23 17:50 08/24/23 17:50 Labs: Lab Results 08/24/23 Range/Units 17:50 WBC 5.7 (4.5-11.0) X10^3/uL RBC 4.95 (4.5-5.9) X10^6/uL Hgb 15.4 (13.5-17.5) g/dL Hct 45.4 (41-53) % MCV 91.7 (80-100) fL MCH 31.2 (26-34) PG MCHC 34.0 (30-36) % RDW 14.3 (11.6-14.8) % Plt Count 236 (150-400) X10^3/uL Neut % (Auto) 64.9 (50-75) % Lymph % (Auto) 26.3 (25-40) % [place] % (Auto) 6.8 (3-14) % Eos % (Auto) 1.2 L (2-4) % Baso % (Auto) 0.8 (0-2) % Neut # (Auto) 3700 (2303-3496) /uL Lymph # (Auto) 1500 (3436-1858) /uL [place] # (Auto) 400 (0-900) /uL Eos # (Auto) 100 (0-450) /uL Baso # (Auto) 0 (0-100) /uL PT 12.0 (9.4-12.5) SECONDS INR 1.0 (0.9-1.3) APTT 37 H (25.1-36.5) SECONDS Sodium 138 (137-145) mmol/L Potassium 3.5 (3.4-5.1) mmol/L Chloride 95 L (98-107) mmol/L Carbon Dioxide 36 H (22-32) mmol/L BUN 34 H (9-20) mg/dL Creatinine 1.02 (0.66-1.25) mg/dL Estimated GFR > 60 (>60) mL/min BUN/Creatinine Ratio 33.3 H (6-22) Glucose 132 H (80-110) mg/dL Lactate 1.0 (0.7-2.1) mmol/L Calcium 8.9 (8.4-10.2) mg/dL Total Bilirubin 0.6 (0.2-1.3) mg/dL AST 27 (17-59) IU/L ALT 29 (<50) IU/L Alkaline Phosphatase 112 (38-126) U/L Total Protein 8.1 (6.3-8.2) g/dL Albumin 3.9 (3.5-5.0) g/dL Globulin 4.2 H (1.7-4.1) g/dL Albumin/Globulin Ratio 0.9 L (1.0-2.8) Lipase 196 (23-300) U/L Procalcitonin 0.77 H (<0.5) ng/mL [facility] Narrative Medical decision making narrative: Patient is chronically unwell and presenting for recurrent cellulitis of his lower extremity. Patient has several concomitant problems: First problem is that he retains fluid due to intermittent use of his Lasix, 2nd problem is that he likely has venous stasis contributing to buildup of fluid, and he does have some evidence of cellulitis in his left lower extremity. Sepsis bundle was initiated on arrival, however we will hold fluids because patient does appear to be grossly volume overloaded, but saturating well on his usual as needed nasal cannula. IV Lasix ordered for diuresis. Laboratory work is reviewed. There is no leukocytosis, no left shift, electrolytes are normal. Chest x-ray confirms that patient does have mild pulmonary edema, however patient has already diuresed well after being given IV Lasix. Since procalcitonin is elevated at 0.77 we will treat with antibiotics. Patient states that he does not like doxycycline because it does not seem to work for him. Patient had success previously with clindamycin, and clindamycin sent to pharmacy of choice as well as a small amount of pain medications. Patient was advised to adhere to his diuretic schedule, to elevate his feet as much as possible to avoid worsening venous stasis, and to finish all antibiotics as prescribed. He was also strongly counseled to cease smoking and using illicit substances. Discharge Plan Departure Patient Disposition: Home Clinical Impression: Cellulitis, Cardiac volume overload, Venous stasis Instructions: DI for Cellulitis -- Adult, DI for Heart Failure, DI for Edema Due to Venous Stasis Activity Restrictions/Additional Instructions: Do not take the doxycycline. Take all of your lasix as prescribed. Prescriptions: New doxycycline hyclate 100 mg tablet 100 mg PO BID Qty: 14 0RF clindamycin HCl 150 mg capsule 450 mg PO TID 7 Days Qty: 63 0RF tramadol 50 mg tablet 50 mg PO Q8H PRN (Reason: pain) Qty: 10 0RF No Action furosemide [Lasix] 40 mg tablet 40 mg PO DAILY Qty: 10 0RF Entresto 24-26 mg tablet 1 tab PO BID fluocinolone 0.025 % cream 1 applic topical BID Qty: 15 3RF hydrocortisone 0.5 % cream 1 applic topical TID PRN (Reason: rash) Qty: 28.4 2RF Referrals: Miscellaneous,Doctor, MD [Primary Care Provider] - Stand Alone Forms: Patient Portal/API
[2023-08-24 18:11] LABS: Alanine Aminotransferase 29 IU/L (<50); Albumin 3.9 g/dL (3.5-5.0); Albumin Globulin Ratio 0.9 (1.0-2.8); Alkaline Phosphatase 112 U/L (38-126); Aspartate Aminotransferase 27 IU/L (17-59); BUN Creatinine Ratio 33.3 (6-22); Bilirubin Total 0.6 mg/dL (0.2-1.3); Blood Urea Nitrogen 34 mg/dL (9-20); Calcium 8.9 mg/dL (8.4-10.2); Carbon Dioxide 36 mmol/L (22-32); Chloride 95 mmol/L (98-107); Estimated Glomerular Filt Rate > 60 mL/min (>60); Globulin 4.2 g/dL (1.7-4.1); Glucose 132 mg/dL (80-110); HEMOLYSIS < 15 (0-50); Lipase 196 U/L (23-300); Potassium 3.5 mmol/L (3.4-5.1); Sodium 138 mmol/L (137-145); Total Protein 8.1 g/dL (6.3-8.2)
[2023-08-24 18:27] LABS: Procalcitonin 0.77 ng/mL (<0.5)
[2023-08-24] MEDS: FUROSEMIDE 40 MG/4 ML VIAL IV (18:32)
== END 2023-08-24 19:36 | disposition home or self-care (01) ==
PROVIDERS: Emergency Medicine; Emergency Provider Emergency Medicine
DX: L03.116 Cellulitis of left lower limb (principal); E87.79 Other fluid overload; I87.8 Other specified disorders of veins; Z79.01 Long term (current) use of anticoagulants
CPT/HCPCS: 36415; 71045; 80053; 83605; 83690; 84145; 85025; 85610; 85730; 87040; 93005; 96374; 99284; J1940

== ENCOUNTER 2024-07-31 12:06 | Inpatient (IN) | payer OTHER, SELFPAY ==
[2024-07-31] VITALS (41 sets, daily range): BP systolic 97–212; BP diastolic 53–107; PULSE 85–124; RESP 9–47; TEMP 37.3–39.6; O2SAT 79–99; BMI 51.1; BMI 48.2
--- NOTE | 2024-07-31 12:16 | ED.AMS ---
HPI - Altered Mental Status General Chief Complaint: Shortness of Breath/Dyspnea Stated Complaint: Weakness, URI symps Time Seen by Provider: 07/31/24 12:10 History of Present Illness HPI narrative: 63yoM with PMH CHF, amphetamine abuse, chronic lower extremity edema presents by EMS from his trailer for fever, generalized weakness. History is limited as patient is currently altered, he thinks that he is currently in [place], and thinks that it is April. EMS states that it took for personnel to carry the patient from his trailer as he was too weak to walk. Uncertain how long symptoms have gone on. EMS states that when they arrived the patient was saturating in the 70s on room air. He was placed on nasal cannula and transferred to the ER for evaluation. Related Data Home Medications Medication Instructions Recorded Confirmed sacubitril 24 mg-valsartan 26 mg 1 tab PO BID 07/04/23 09/29/23 tablet (Entresto) Previous Rx's Medication Instructions Recorded furosemide 40 mg tablet (Lasix) 40 mg PO DAILY #10 tabs 06/10/23 fluocinolone 0.025 % topical cream 1 applic topical BID #15 grams 07/04/23 hydrocortisone 0.5 % topical cream 1 applic topical TID PRN rash 07/04/23 #28.4 grams doxycycline hyclate 100 mg tablet 100 mg PO BID #14 tabs 08/24/23 tramadol 50 mg tablet 50 mg PO Q8H PRN pain #10 tabs 08/24/23 Allergies Allergy/AdvReac Type Severity Reaction Status Date / Time No Known Drug Allergies Allergy Verified 07/31/24 12:37 Patient History Medical History Hx of open fracture Social History Smoking Status: Current some day smoker Smoking Status: Current some day smoker tobacco type: cigarettes Exam Initial Vital Signs Initial Vital Signs: Vital Signs Temperature 99.1 F 07/31/24 12:05 Pulse Rate 124 H 07/31/24 12:05 Respiratory Rate 30 H 07/31/24 12:05 Blood Pressure 212/102 H 07/31/24 12:05 Pulse Oximetry 92 07/31/24 12:05 Oxygen Delivery Method Nasal Cannula 07/31/24 12:05 Oxygen Flow Rate 6 07/31/24 12:05 Const: Awake, alert, confused, appears chronically unwell Cardiac: Tachycardia, regular rhythm RESP: Decreased breath sounds bilaterally, on supplemental nasal cannula, no wheezes, no obvious rales/rhonchi GI: Soft, nontender, nondistended MSK: 3+ edema to thighs bilaterally, extensive chronic venous stasis changes Skin: Warm, Dry, intact, no rashes Neuro: AO x1, CN II-XII grossly intact, moves all extremities Course Orders Ordered: ED Orders 07/31/24 12:11 Respiratory Panel (Film Array) Stat 07/31/24 12:15 XR chest 1V Stat EKG-12 Lead Stat 07/31/24 12:25 Complete Blood Count AUTO DIFF Stat Comprehensive Metabolic Panel Stat Lactate (Lactic Acid) Stat NT-proBNP (BNP-Adult 18+) Stat Procalcitonin Stat Troponin & CK Cardiac Panel Stat 07/31/24 12:27 ABG [Arterial Blood Gas] STAT 07/31/24 12:30 Urinalysis and Microscopic Stat Urine Drug Screen, Rapid Stat 07/31/24 12:50 Consult to AIRCREWMAN - Pest Control Specialist Stat 07/31/24 13:06 Blood Culture Stat 07/31/24 14:16 CT angio chest PE protocol Stat 07/31/24 15:54 RT Consult Eval and Treat NOW 07/31/24 15:58 EC echo doppler complete Urgent Acetaminophen (Acetaminophen 325 Mg Tablet) 650 mg PO Q6H PRN PRN Reason: Fever/Mild Pain (1-3) Enoxaparin Sodium (Enoxaparin 40 Mg/0.4 Ml Syringe) 40 mg SUBCUT BID [facility] Famotidine (Famotidine 20 Mg/2 Ml Vial) 20 mg IV BID [facility] Ceftriaxone Sodium 2,000 mg/ (Sodium Chloride) 100 mls @ 200 mls/hr IV Q24H LORENZA Naloxone HCl (Naloxone 0.4 Mg/Ml Vial) 0.2 mg IV Q2MIN PRN PRN Reason: Opiate Reversal Vancomycin HCl (Vancomycin Per Pharmacy) 1 request MISC NOW PRN PRN Reason: sepsis Discontinued Medications Furosemide (Furosemide 40 Mg/4 Ml Vial) 40 mg IV NOW ONE Stop: 07/31/24 13:44 Last Admin: 07/31/24 13:48 Dose: 40 mg Documented By: SPF Hydralazine HCl (Hydralazine 20 Mg/Ml Vial) 10 mg IV NOW ONE Stop: 07/31/24 13:44 Last Admin: 07/31/24 13:48 Dose: 10 mg Documented By: SPF Ceftriaxone Sodium 2,000 mg/ (Sodium Chloride) 100 mls @ 200 mls/hr IV NOW ONE Stop: 07/31/24 12:16 Last Infusion: 07/31/24 14:00 Dose: Infused Documented By: Admin: 07/31/24 13:25 Dose: 200 mls/hr Documented By: SPF Acetaminophen (Ofirmev) 1,000 mg in 100 mls @ 400 mls/hr IV NOW ONE Stop: 07/31/24 12:29 Last Infusion: 07/31/24 13:49 Dose: Infused Documented By: Admin: 07/31/24 13:25 Dose: 400 mls/hr Documented By: SPF Vancomycin HCl/Dextrose (Vancomycin) 2,000 mg in 400 mls @ 200 mls/hr IV NOW ONE Stop: 07/31/24 16:12 Last Admin: 07/31/24 14:59 Dose: 200 mls/hr Documented By: PEGGY Ketorolac Tromethamine (Ketorolac 30 Mg/Ml Vial) 15 mg IV NOW ONE Stop: 07/31/24 15:04 Last Admin: 07/31/24 15:07 Dose: 15 mg Documented By: MLM Lidocaine HCl (Lidocaine 2% (Glydo) 6 Ml Gel) 6 ml TOP NOW ONE Stop: 07/31/24 14:01 Last Admin: 07/31/24 14:00 Dose: 6 ml Documented By: ADAM Vital Signs Vital signs: Vital Signs - 8 hr 07/31/24 12:05 07/31/24 12:25 07/31/24 12:30 Temperature 99.1 F Pulse Rate 124 H 115 H 119 H Respiratory Rate 30 H 35 H 29 H Blood Pressure 212/102 H Pulse Oximetry 92 89 L 93 Oxygen Delivery Method Nasal Cannula Nasal Cannula Nasal Cannula Oxygen Flow Rate 6 5 5 07/31/24 12:46 07/31/24 12:46 07/31/24 12:48 Temperature 99.5 F Pulse Rate 120 H 120 H Respiratory Rate 47 H 45 H Blood Pressure 212/107 H 212/107 H Pulse Oximetry 95 91 Oxygen Delivery Method Nasal Cannula Oximask Nasal Cannula Oxygen Flow Rate 5 6 07/31/24 13:00 07/31/24 13:08 07/31/24 13:08 Temperature Pulse Rate 122 H 123 H Respiratory Rate 37 H 37 H Blood Pressure 192/98 H Pulse Oximetry 79 L 92 Oxygen Delivery Method Room Air Oxygen Flow Rate 5 07/31/24 13:30 07/31/24 13:30 07/31/24 13:48 Temperature Pulse Rate 122 H 118 H Respiratory Rate 36 H Blood Pressure 201/91 H 201/91 H Pulse Oximetry 92 Oxygen Delivery Method Oxygen Flow Rate 07/31/24 13:53 07/31/24 13:53 07/31/24 14:00 Temperature Pulse Rate 119 H 116 H Respiratory Rate 9 L Blood Pressure 181/71 H Pulse Oximetry 93 88 L Oxygen Delivery Method Oximask Oxygen Flow Rate 8 07/31/24 14:01 07/31/24 14:01 07/31/24 14:05 Temperature Pulse Rate 117 H Respiratory Rate 16 Blood Pressure 109/63 97/53 L Pulse Oximetry 88 L Oxygen Delivery Method Oximask Oxygen Flow Rate 8 07/31/24 14:05 07/31/24 14:06 07/31/24 14:06 Temperature Pulse Rate 116 H 114 H Respiratory Rate 23 Blood Pressure 128/60 Pulse Oximetry 90 L 89 L Oxygen Delivery Method Oximask Oximask Oxygen Flow Rate 8 8 07/31/24 14:10 07/31/24 14:15 07/31/24 14:15 Temperature Pulse Rate 113 H Respiratory Rate Blood Pressure 128/60 Pulse Oximetry 88 L 91 Oxygen Delivery Method Nasal Cannula Oximask Oxygen Flow Rate 6 8 07/31/24 14:30 07/31/24 14:45 07/31/24 14:45 Temperature Pulse Rate 109 H 106 H Respiratory Rate 39 H Blood Pressure 136/60 Pulse Oximetry 92 94 Oxygen Delivery Method Oximask Oximask Oxygen Flow Rate 8 8 07/31/24 15:00 07/31/24 15:00 07/31/24 15:07 Temperature 102.9 F H 103.3 F H Pulse Rate 109 H Respiratory Rate 31 H Blood Pressure 194/95 H Pulse Oximetry 97 Oxygen Delivery Method Oximask Oxygen Flow Rate 8 07/31/24 15:30 07/31/24 15:31 07/31/24 15:31 Temperature 103.3 F H 103.3 F H Pulse Rate 108 H 107 H Respiratory Rate 32 H 30 H Blood Pressure 158/68 H Pulse Oximetry 97 96 Oxygen Delivery Method Oximask Oximask Oxygen Flow Rate 8 8 MDM - Altered Mental Status Lab Data 07/31/24 12:25 07/31/24 12:25 Labs: Lab Results 07/31/24 07/31/24 07/31/24 Range/Units 12:11 12:25 12:30 WBC 11.8 H (4.5-11.0) X10^3/uL RBC 5.09 (4.5-5.9) X10^6/uL Hgb 15.5 (13.5-17.5) g/dL Hct 46.8 (41-53) % MCV 91.9 (80-100) fL MCH 30.4 (26-34) PG MCHC 33.1 (30-36) % RDW 14.7 (11.6-14.8) % Plt Count 254 (150-400) X10^3/uL Neut % (Auto) 92.0 H (50-75) % Lymph % (Auto) 4.9 L (25-40) % Lipscomb % (Auto) 2.8 L (3-14) % Eos % (Auto) 0.0 L (2-4) % Baso % (Auto) 0.3 (0-2) % Neut # (Auto) 71310 H (5608-8185) /uL Lymph # (Auto) 600 L (6617-6173) /uL Lipscomb # (Auto) 300 (0-900) /uL Eos # (Auto) 0 (0-450) /uL Baso # (Auto) 0 (0-100) /uL Sodium 136 L (137-145) mmol/L Potassium 4.4 (3.4-5.1) mmol/L Chloride 96 L (98-107) mmol/L Carbon Dioxide 37 H (22-32) mmol/L BUN 17 (9-20) mg/dL Creatinine 0.90 (0.66-1.25) mg/dL Estimated GFR > 60 (>60) mL/min BUN/Creatinine Ratio 18.9 (6-22) Glucose 124 H (80-110) mg/dL Lactate 1.5 (0.7-2.1) mmol/L Calcium 8.6 (8.4-10.2) mg/dL Total Bilirubin 0.8 (0.2-1.3) mg/dL AST 40 (17-59) IU/L ALT 34 (<50) IU/L Alkaline Phosphatase 149 H (38-126) U/L Total Creatine Kinase 80 (55-170) U/L Troponin I < 0.012 (0.01-0.034) ng/mL NT-Pro-B Natriuret Pep 536 H (<125) pg/mL Total Protein 8.3 H (6.3-8.2) g/dL Albumin 4.1 (3.5-5.0) g/dL Globulin 4.2 H (1.7-4.1) g/dL Albumin/Globulin Ratio 1.0 (1.0-2.8) Procalcitonin 0.670 H (<0.5) ng/mL Urine Color Yellow Urine Appearance Clear Urine pH 6.5 (4.5-8.0) Ur Specific [place] 1.020 (1.000-1.035) Urine Protein 2+ H (Negative) Urine Glucose (UA) Negative (Negative) g/dL Urine Ketones Negative (NEGATIVE) Urine Occult Blood 1+ H (Negative) Urine Nitrate Negative (Negative) Urine Bilirubin Negative (NEGATIVE) Urine Urobilinogen 1.0 (0.2) E.U./dL Ur Leukocyte Esterase Negative (NEGATIVE) Urine RBC 5-10/hpf H (0-5/HPF) Urine WBC None seen (0-5/HPF) Ur Squamous Epith Cells None seen (0-5/HPF) Urine Bacteria None seen (None) Ur Culture Indicated? Cult not indicated Vol Urine Centrifuged 10ml (spun) U Opiates 300ng/mL cut Negative (Negative) Ur Oxycodone Screen Negative (Negative) Urine Methadone Screen Negative (Negative) Ur Barbiturates Screen Negative (Negative) U Tricyclic Antidepress Negative (Negative) Ur Phencyclidine Scrn Negative (Negative) Ur Amphetamines Screen Positive H (Negative) U Methamphetamines Scrn Positive H (Negative) Ur MDMA Scrn (Ecstasy) Negative (Negative) U Benzodiazepines Scrn Negative (Negative) Urine Cocaine Screen Negative (Negative) U Marijuana (THC) Screen Negative (Negative) Urine Specific [place] (Normal) Ur Creatinine (Normal) Chlamy pneumoniae PCR Not detected (Not Detect) Adenovirus (PCR) Not detected (Not Detect) B. pertussis DNA (PCR) Not detected (Not Detect) B.parapertussis DNA PCR Not detected (Not Detecte) Coronavirus OC43 (PCR) Not detected (Not Detect) Coronavirus HKU1 (PCR) Not detected (Not Detect) Coronavirus 229E (PCR) Not detected (Not Detect) SARS-CoV-2 (PCR) Not detected (Not Detecte) Coronavirus NL63 (PCR) Not detected (Not Detect) Human Metapneumovir PCR Not detected (Not Detect) Influenza Type A (PCR) Not detected (Not Detect) Influenza Type B (PCR) Not detected (Not Detect) M. pneumoniae (PCR) Not detected (Not Detect) Parainfluenza 1 (PCR) Not detected (Not Detect) Parainfluenza 2 (PCR) Not detected (Not Detect) Parainfluenza 3 (PCR) Not detected (Not Detect) Parainfluenza 4 (PCR) Not detected (Not Detect) RSV (PCR) Not detected (Not Detect) Entero/Rhino (PCR) Not detected (Not Detect) 07/31/24 Range/Units 12:30 WBC (4.5-11.0) X10^3/uL RBC (4.5-5.9) X10^6/uL Hgb (13.5-17.5) g/dL Hct (41-53) % MCV (80-100) fL MCH (26-34) PG MCHC (30-36) % RDW (11.6-14.8) % Plt Count (150-400) X10^3/uL Neut % (Auto) (50-75) % Lymph % (Auto) (25-40) % Lipscomb % (Auto) (3-14) % Eos % (Auto) (2-4) % Baso % (Auto) (0-2) % Neut # (Auto) (6469-1384) /uL Lymph # (Auto) (4984-7194) /uL Lipscomb # (Auto) (0-900) /uL Eos # (Auto) (0-450) /uL Baso # (Auto) (0-100) /uL Sodium (137-145) mmol/L Potassium (3.4-5.1) mmol/L Chloride (98-107) mmol/L Carbon Dioxide (22-32) mmol/L BUN (9-20) mg/dL Creatinine (0.66-1.25) mg/dL Estimated GFR (>60) mL/min BUN/Creatinine Ratio (6-22) Glucose (80-110) mg/dL Lactate (0.7-2.1) mmol/L Calcium (8.4-10.2) mg/dL Total Bilirubin (0.2-1.3) mg/dL AST (17-59) IU/L ALT (<50) IU/L Alkaline Phosphatase (38-126) U/L Total Creatine Kinase (55-170) U/L Troponin I (0.01-0.034) ng/mL NT-Pro-B Natriuret Pep (<125) pg/mL Total Protein (6.3-8.2) g/dL Albumin (3.5-5.0) g/dL Globulin (1.7-4.1) g/dL Albumin/Globulin Ratio (1.0-2.8) Procalcitonin (<0.5) ng/mL Urine Color Urine Appearance Urine pH Normal (4.5-8.0) Ur Specific [place] (1.000-1.035) Urine Protein (Negative) Urine Glucose (UA) (Negative) g/dL Urine Ketones (NEGATIVE) Urine Occult Blood (Negative) Urine Nitrate (Negative) Urine Bilirubin (NEGATIVE) Urine Urobilinogen (0.2) E.U./dL Ur Leukocyte Esterase (NEGATIVE) Urine RBC (0-5/HPF) Urine WBC (0-5/HPF) Ur Squamous Epith Cells (0-5/HPF) Urine Bacteria (None) Ur Culture Indicated? Vol Urine Centrifuged U Opiates 300ng/mL cut (Negative) Ur Oxycodone Screen (Negative) Urine Methadone Screen (Negative) Ur Barbiturates Screen (Negative) U Tricyclic Antidepress (Negative) Ur Phencyclidine Scrn (Negative) Ur Amphetamines Screen (Negative) U Methamphetamines Scrn (Negative) Ur MDMA Scrn (Ecstasy) (Negative) U Benzodiazepines Scrn (Negative) Urine Cocaine Screen (Negative) U Marijuana (THC) Screen (Negative) Urine Specific [place] Normal (Normal) Ur Creatinine Normal (Normal) Chlamy pneumoniae PCR (Not Detect) Adenovirus (PCR) (Not Detect) B. pertussis DNA (PCR) (Not Detect) B.parapertussis DNA PCR (Not Detecte) Coronavirus OC43 (PCR) (Not Detect) Coronavirus HKU1 (PCR) (Not Detect) Coronavirus 229E (PCR) (Not Detect) SARS-CoV-2 (PCR) (Not Detecte) Coronavirus NL63 (PCR) (Not Detect) Human Metapneumovir PCR (Not Detect) Influenza Type A (PCR) (Not Detect) Influenza Type B (PCR) (Not Detect) M. pneumoniae (PCR) (Not Detect) Parainfluenza 1 (PCR) (Not Detect) Parainfluenza 2 (PCR) (Not Detect) Parainfluenza 3 (PCR) (Not Detect) Parainfluenza 4 (PCR) (Not Detect) RSV (PCR) (Not Detect) Entero/Rhino (PCR) (Not Detect) Urine Dip Bedside Urine Glucose Negative Bedside Urine Bilirubin - Negative Bedside Urine Ketone - Negative Urine Specific [place] 1.015 Bedside Urine Occult Blood ++ Bedside Urine pH 6.5 Bedside Urine Protein ++ 100 Bedside Urine Urobilinogen - Negative Bedside Urine Nitrite - Negative Bedside Urine Leukocytes - Negative Esterase Imaging Data Extremity x-ray #1: Radiologist's Impression: PROCEDURE: XR CHEST 1V INDICATIONS: DYSPNEA, HYPOXIA TECHNIQUE: One view of the chest was acquired. COMPARISON: [facility], CR, XR CHEST 1V, 06/05/2023, 14:42. [facility], CR, XR CHEST 1V, 06/10/2023, 11:41. [facility], CR, XR CHEST 1V, 08/24/2023, 17:49. FINDINGS: Surgical changes and devices: None. Lungs and pleura: Generalized interstitial prominence can be seen. No pleural effusions or pneumothorax. Mediastinum: Mediastinal contours appear normal. Heart size is mildly enlarged. Bones and chest wall: No suspicious bony lesions. Age-appropriate bony degenerative changes are seen. Overlying soft tissues appear unremarkable. IMPRESSION: Cardiomegaly. CHF is Dictated by: Yuri Figueroa M.D. on 07/31/2024 at 12:35 Approved by: Yuri Figueroa M.D. on 07/31/2024 at 12:36 CT scan - chest: Radiologist's Impression: PROCEDURE: CT ANGIO CHEST PE PROTOCOL INDICATIONS: DYSPNEA, HYPOXIA, TACHYCARDIA TECHNIQUE: After the administration of intravenous contrast, 2 mm thick sections acquired from the pulmonary apices to the posterior costophrenic angles. 3-dimensional maximum intensity projection (MIP) coronal and sagittal reformats were then acquired through the thorax. For radiation dose reduction, the following was used: automated exposure control, adjustment of mA and/or kV according to patient size. COMPARISON: None. FINDINGS: Image quality: Diagnostic. Pulmonary arteries: Dilated main pulmonary artery, suggestive of pulmonary hypertension. Poor contrast opacification of the pulmonary arteries limits evaluation. No findings concerning for large central pulmonary embolism. Evaluation of the more distal pulmonary arteries is limited. Lower Neck: No enlarged lymph nodes. Thyroid: No thyroid nodules which require sonographic follow up, per consensus guidelines. Axillae: No enlarged lymph nodes. Chest Wall: Unremarkable. Bones: Unremarkable. Lungs and Pleura: No pneumothorax or pleural effusions. Linear atelectasis versus scarring at the lung bases. Otherwise, no focal pulmonary consolidations. Left upper lobe perifissural nodule measuring 6 mm, likely an intrapulmonary lymph node. Heart: Heart size is normal. No pericardial effusion. Thoracic Vessels: No aortic aneurysm. Mediastinum and Natacha: No enlarged lymph nodes. Esophagus: No wall thickening. No hiatal hernia. Upper Abdomen: Visualized upper abdomen solid organs and bowel loops appear normal. IMPRESSION: Poor contrast opacification of the pulmonary arteries limits evaluation. No findings concerning for large central pulmonary embolism. Evaluation of more distal pulmonary arteries is limited. Dilated main pulmonary artery, suggestive of pulmonary hypertension. No focal pulmonary consolidations. Linear atelectasis versus scarring at the lung bases. Left upper lobe perifissural nodule measuring 6 mm, likely an intrapulmonary lymph node. Dictated by: Justen Quick M.D. on 07/31/2024 at 15:01 Approved by: Justen Quick M.D. on 07/31/2024 at 15:06 [facility] Narrative Medical decision making narrative: Ill-appearing patient with several days of symptoms. Febrile and hypoxic on exam. Patient has history of congestive heart failure, bilateral chronic lower extremity swelling and frequently gets lower extremity cellulitis. Legs do appear to be erythematous, however not certain if this is cellulitis versus patient's chronic venous congestion. Sepsis order set initiated. Rocephin ordered empirically for coverage. IV fluids held due to history of congestive heart failure and lower extremity edema present on exam. Laboratory work reviewed: WBC count 11.8, hemoglobin 15.5, platelet count 254, neutrophil percentage 92%, sodium 136, potassium 4.4, creatinine 0.9, normal liver enzymes. Troponin undetectable, procalcitonin 0.670. Chest x-ray shows some volume overload, however not enough to explain the patient's current level hypoxia. He is refusing for respiratory therapy to obtain an ABG. Saturations remained borderline on nasal cannula, patient consented to OxyMask. IV Lasix ordered. No obvious other source of infection based on imaging findings with far. To cover for possible cellulitis vancomycin added to Rocephin. CT angio shows no central pulmonary thrombus. Patient saturations remained stable on OxyMask. Diuresing on Lasix. Plan to admit for further treatment. Discharge Plan Departure Patient Disposition: Admitted As Inpatient Clinical Impression: Acute hypoxemic respiratory failure, Fever, Amphetamine use Admit Date/Time: 07/31/24 15:54 Admit Provider: Olive Forman
--- NOTE | 2024-07-31 12:25 | PC.NURSE ---
RT at bedside to perform ABG. Pt is refusing ABG. RT Servando notified Dr. Henderson of refusal. Dr. Henderson states if pt is worsening the ABG will be revisited.
--- NOTE | 2024-07-31 12:35 | EKG_ITS ---
[address] [address] [address] [place] [address] Test Date: 2024-07-31 Pat Name: Rudy Simon Department: Room: Gender: Male Certified Alcohol Drug Counselor: LAWSON : 1960 Requested By: Order Number: [id number] Reading MD: Anjum Elliott Measurements Intervals [place] Rate: 118 P: 46 OK: 184 QRS: 94 QRSD: 86 T: 34 QT: 300 QTc: 420 Interpretive Statements Sinus tachycardia Rightward axis Electronically Signed On 08-02-2024 9:43:15 PST by Anjum Elliott
--- NOTE | 2024-07-31 12:40 | PC.NURSE ---
Pt is confused and answers short responses to questions. I asked if pt uses oxygen at home, pt responds I used to use oxygen but they took it away. Pt requires frequent reorientation as to situation. He states we are in [place]. When asked how long pt has been sick he states my whole life. 2 days. 2 months. I dont know. Pt lives at home alone in his trailer. A neighbor was concerned for him and asked the fire department to check on him. Pt initially appears cyanotic in face and lips. He is on 6L NC.
[2024-07-31 12:41] LABS: Add Manual Diff / Slide Review NO; Basophils Absolute Auto 0 /uL (0-100); Basophils Percent Auto 0.3 % (0-2); Eosinophils Absolute Auto 0 /uL (0-450); Hematocrit 46.8 % (41-53); Hemoglobin 15.5 g/dL (13.5-17.5); Lymphocytes Absolute Auto 600 /uL (1100-4500); Lymphocytes Percent Auto 4.9 % (25-40); Mean Corpuscular HGB Conc 33.1 % (30-36); Mean Corpuscular Hemoglobin 30.4 PG (26-34); Mean Corpuscular Volume 91.9 fL (80-100); Monocytes Absolute Auto 300 /uL (0-900); Monocytes Percent Auto 2.8 % (3-14); Neutrophils Absolute Auto 10900 /uL (1500-7000); Platelet Count 254 X10^3/uL (150-400); Red Blood Cell Count 5.09 X10^6/uL (4.5-5.9); Red Cell Distribution Width 14.7 % (11.6-14.8); White Blood Cell Count 11.8 X10^3/uL (4.5-11.0)
[2024-07-31 12:51] LABS: Lactate (Lactic Acid) 1.5 mmol/L (0.7-2.1)
[2024-07-31 12:52] LABS: Alanine Aminotransferase 34 IU/L (<50); Albumin 4.1 g/dL (3.5-5.0); Alkaline Phosphatase 149 U/L (38-126); Aspartate Aminotransferase 40 IU/L (17-59); BUN Creatinine Ratio 18.9 (6-22); Bilirubin Total 0.8 mg/dL (0.2-1.3); Blood Urea Nitrogen 17 mg/dL (9-20); Calcium 8.6 mg/dL (8.4-10.2); Carbon Dioxide 37 mmol/L (22-32); Chloride 96 mmol/L (98-107); Creatine Kinase 80 U/L (55-170); Estimated Glomerular Filt Rate > 60 mL/min (>60); Globulin 4.2 g/dL (1.7-4.1); Glucose 124 mg/dL (80-110); HEMOLYSIS < 15 (0-50); Potassium 4.4 mmol/L (3.4-5.1); Sodium 136 mmol/L (137-145); Total Protein 8.3 g/dL (6.3-8.2)
[2024-07-31 12:54] LABS: Appearance Urine UA CLEAR; Bilirubin Urine UA NEGATIVE (NEGATIVE); Color Urine UA YELLOW; Glucose Urine UA NEGATIVE (Negative); Ketones Urine UA NEGATIVE (NEGATIVE); Leukocyte Esterase Urine UA NEGATIVE (NEGATIVE); Nitrite Urine UA NEGATIVE (Negative); Occult Blood Urine UA 1+ (Negative); Protein Urine UA 2+ (Negative); pH Urine UA 6.5 (4.5-8.0)
[2024-07-31 12:58] LABS: Ur Creatinine Normal (Normal); Ur Specific Gravity Normal (Normal); Urine Amphetamines Positive (Negative); Urine Barbiturates Negative (Negative); Urine Benzodiazepines Negative (Negative); Urine Cocaine Negative (Negative); Urine MDMA Negative (Negative); Urine Methadone Negative (Negative); Urine Methamphetamines Positive (Negative); Urine Opiates Negative (Negative); Urine Oxycodone Negative (Negative); Urine Phencyclidine Negative (Negative); Urine THC Negative (Negative); Urine Tricyclic Antidepressant Negative (Negative); Urine pH Normal (Normal)
[2024-07-31 13:04] LABS: NT-proBNP (BNP-Adult 18+) 536 pg/mL (<125); Troponin I < 0.012 ng/mL (0.01-0.034)
[2024-07-31 13:13] LABS: Bacteria Urine None Seen; Culture Indicated Urine Cult Not Indicated; RBC Urine 5-10/HPF (0-5/HPF); Squamous Epithelial Cell Urine None Seen (0-5/HPF); Urine Volume 10mL (spun); WBC Urine None Seen (0-5/HPF)
[2024-07-31 13:22] LABS: Adenovirus Not Detected (Not Detect); B. parapertussis Not Detected (Not Detecte); Bordetella pertussis Not Detected (Not Detect); Chlamydophila pneumoniae Not Detected (Not Detect); Coronavirus 229E Not Detected (Not Detect); Coronavirus HKU1 Not Detected (Not Detect); Coronavirus NL 63 Not Detected (Not Detect); Coronavirus OC43 Not Detected (Not Detect); Human Metapneumovirus Not Detected (Not Detect); Human Rhinovirus/Enterovirus Not Detected (Not Detect); Influenza A Not Detected (Not Detect); Influenza B Not Detected (Not Detect); Mycoplasma pneumoniae Not Detected (Not Detect); Parainfluenza Virus 1 Not Detected (Not Detect); Parainfluenza Virus 2 Not Detected (Not Detect); Parainfluenza Virus 3 Not Detected (Not Detect); Parainfluenza Virus 4 Not Detected (Not Detect); Respiratory Syncytial Virus Not Detected (Not Detect); SARS- CoV-2 Not Detected (Not Detecte)
[2024-07-31] MEDS: cefTRIAXone 2,000 MG in SODIUM CHLORIDE 0.9% 100 ML 200 MG IV (13:25)
[2024-07-31] MEDS: ACETAMINOPHEN IV 1,000 MG/100 ML VIAL 400 MG IV ×2 (13:25→20:59)
[2024-07-31] MEDS: HYDRALAZINE 20 MG/ML VIAL 10 MG IV (13:48)
[2024-07-31] MEDS: FUROSEMIDE 40 MG/4 ML VIAL IV (13:48)
[2024-07-31] MEDS: LIDOCAINE 2% (GLYDO) 6 ML GEL TOP (14:00)
--- NOTE | 2024-07-31 14:16 | DI.CT.S_ITS ---
PROCEDURE: CT ANGIO CHEST PE PROTOCOL INDICATIONS: DYSPNEA, HYPOXIA, TACHYCARDIA TECHNIQUE: After the administration of intravenous contrast, 2 mm thick sections acquired from the pulmonary apices to the posterior costophrenic angles. 3-dimensional maximum intensity projection (MIP) coronal and sagittal reformats were then acquired through the thorax. For radiation dose reduction, the following was used: automated exposure control, adjustment of mA and/or kV according to patient size. COMPARISON: None. FINDINGS: Image quality: Diagnostic. Pulmonary arteries: Dilated main pulmonary artery, suggestive of pulmonary hypertension. Poor contrast opacification of the pulmonary arteries limits evaluation. No findings concerning for large central pulmonary embolism. Evaluation of the more distal pulmonary arteries is limited. Lower Neck: No enlarged lymph nodes. Thyroid: No thyroid nodules which require sonographic follow up, per consensus guidelines. Axillae: No enlarged lymph nodes. Chest Wall: Unremarkable. Bones: Unremarkable. Lungs and Pleura: No pneumothorax or pleural effusions. Linear atelectasis versus scarring at the lung bases. Otherwise, no focal pulmonary consolidations. Left upper lobe perifissural nodule measuring 6 mm, likely an intrapulmonary lymph node. Heart: Heart size is normal. No pericardial effusion. Thoracic Vessels: No aortic aneurysm. Mediastinum and Natacha: No enlarged lymph nodes. Esophagus: No wall thickening. No hiatal hernia. Upper Abdomen: Visualized upper abdomen solid organs and bowel loops appear normal. IMPRESSION: Poor contrast opacification of the pulmonary arteries limits evaluation. No findings concerning for large central pulmonary embolism. Evaluation of more distal pulmonary arteries is limited. Dilated main pulmonary artery, suggestive of pulmonary hypertension. No focal pulmonary consolidations. Linear atelectasis versus scarring at the lung bases. Left upper lobe perifissural nodule measuring 6 mm, likely an intrapulmonary lymph node. Dictated by: Justen Quick M.D. on 07/31/2024 at 15:01 Approved by: Justen Quick M.D. on 07/31/2024 at 15:06
--- NOTE | 2024-07-31 14:18 | PC.NURSE ---
This POWDERED SUGAR SUPERVISOR removed pt's necklaces, rings, and bracelets. Jewelry labeled and placed in specimen cups and labeled pt belonging bags at bedside. A necklace had to be cut to facilitate removal.
[2024-07-31] MEDS: VANCOMYCIN 2,000 MG/400 ML PIGGYBACK 200 MG IV (14:59)
[2024-07-31] MEDS: KETOROLAC 30 MG/ML VIAL 15 MG IV (15:07)
--- NOTE | 2024-07-31 16:11 | CM.DANOTE ---
ED TEACHING AIDE Brief Assessment Note: Pt is a 63yo male, resident of [place], is admitted for fever and acute hypoxemic respiratory fever. Per EMS report, pt lives in a trailer in [place]. Pt's Primary Care Provider is Dr. Regina Saba and insurance is [employer] and [employer]. Reviewed chart and discussed with multidisciplinary team pt's medical status and initial discharge needs. ED TEACHING AIDE attempted to meet w/patient at bedside; introduced self and role. Per RN, pt is confused, not oriented to location and has an oximask on making it more difficult to communicate. Pt was also asleep at time of attempt for assessment. Per chart review, pt has a previous hx of CHF, methamphetamine use, and lower extremity edema. ED TEACHING AIDE called [facility] in [facility] and confirmed that pt was last seen by PCP on 03/09/2024. Plan: Pt to be admitted to ICU, plan of care evolving. CM team will follow closely for coordination of discharge plans. Maribel Wood [facility] Discharge Planning/Care Management CM Discharge Assessment Start: 07/31/24 16:06 Freq: Status: Active Protocol: Document 07/31/24 16:06 MW (Rec: 07/31/24 16:11 MW [id number]) Discharge Planning Assessment Assigned Hog Man JOEL López DPOA/Assigned Designee Name Shanell Silva Contact Information [phone] Advance Directives? No History Provided By Medical Record Prior Living Arrangements Mobile home Comment [place] Independent with ADL's Yes Is patient alert and oriented? No Review Status In Process Please Provide Date Initial DC 07/31/24 Assessment Was Performed Next Review Type Continued Stay Review
[2024-07-31 16:29] LABS: Allen Test for ABG Passed? Positive; Base Excess ABG 4.6 mmol/L (-2-3); Blood Gas Collection Site Right Radial; HCO3 ABG 36 mmol/L (23-27); Oxygen Saturation ABG 77 % (95-100); PCO2 ABG 83.5 mmHg (35-45); PO2 ABG 51 mmHg (80-100); TCO2 ABG 36 mmol/L (23-27); pH ABG 7.24 (7.35-7.45)
--- NOTE | 2024-07-31 17:04 | PC.ADMIT ---
[email or web address] Admission Note: Patient admitted from the ED via stretcher. Vanco infusing to right AC. Patient somnolent, drowsy, falls asleep or drifts off when not stimulated. Answering simple questions with yes or no. Frequently asking why? and repeats question. States has been buying $20 worth of meth a day, declines all other illicits. Chronic wounds BLE, see wound photos, patient states appearance is normal. 8L on oxymask @ 95%, calm and unlabored breathing, HR 101, Temp 101.8, all other vitals normal. The patient,Rudy Simon,63 y/o, was given written information regarding hospital policies, unit procedures and contact persons. Patient's smoking status: Current some day smoker. Vital Signs - 8 hr 07/31/24 12:05 07/31/24 12:25 07/31/24 12:30 Temperature 99.1 F Pulse Rate 124 H 115 H 119 H Respiratory Rate 30 H 35 H 29 H Blood Pressure 212/102 H Pulse Oximetry 92 89 L 93 Oxygen Delivery Method Nasal Cannula Nasal Cannula Nasal Cannula Oxygen Flow Rate 6 5 5 07/31/24 12:46 07/31/24 12:46 07/31/24 12:48 Temperature 99.5 F Pulse Rate 120 H 120 H Respiratory Rate 47 H 45 H Blood Pressure 212/107 H 212/107 H Pulse Oximetry 95 91 Oxygen Delivery Method Nasal Cannula Oximask Nasal Cannula Oxygen Flow Rate 5 6 07/31/24 13:00 07/31/24 13:08 07/31/24 13:08 Temperature Pulse Rate 122 H 123 H Respiratory Rate 37 H 37 H Blood Pressure 192/98 H Pulse Oximetry 79 L 92 Oxygen Delivery Method Room Air Oxygen Flow Rate 5 07/31/24 13:30 07/31/24 13:30 07/31/24 13:48 Temperature Pulse Rate 122 H 118 H Respiratory Rate 36 H Blood Pressure 201/91 H 201/91 H Pulse Oximetry 92 Oxygen Delivery Method Oxygen Flow Rate 07/31/24 13:53 07/31/24 13:53 07/31/24 14:00 Temperature Pulse Rate 119 H 116 H Respiratory Rate 9 L Blood Pressure 181/71 H Pulse Oximetry 93 88 L Oxygen Delivery Method Oximask Oxygen Flow Rate 8 07/31/24 14:01 07/31/24 14:01 07/31/24 14:05 Temperature Pulse Rate 117 H Respiratory Rate 16 Blood Pressure 109/63 97/53 L Pulse Oximetry 88 L Oxygen Delivery Method Oximask Oxygen Flow Rate 8 07/31/24 14:05 07/31/24 14:06 07/31/24 14:06 Temperature Pulse Rate 116 H 114 H Respiratory Rate 23 Blood Pressure 128/60 Pulse Oximetry 90 L 89 L Oxygen Delivery Method Oximask Oximask Oxygen Flow Rate 8 8 07/31/24 14:10 07/31/24 14:15 07/31/24 14:15 Temperature Pulse Rate 113 H Respiratory Rate Blood Pressure 128/60 Pulse Oximetry 88 L 91 Oxygen Delivery Method Nasal Cannula Oximask Oxygen Flow Rate 6 8 07/31/24 14:30 07/31/24 14:45 07/31/24 14:45 Temperature Pulse Rate 109 H 106 H Respiratory Rate 39 H Blood Pressure 136/60 Pulse Oximetry 92 94 Oxygen Delivery Method Oximask Oximask Oxygen Flow Rate 8 8 07/31/24 15:00 07/31/24 15:00 07/31/24 15:07 Temperature 102.9 F H 103.3 F H Pulse Rate 109 H Respiratory Rate 31 H Blood Pressure 194/95 H Pulse Oximetry 97 Oxygen Delivery Method Oximask Oxygen Flow Rate 8 07/31/24 15:30 07/31/24 15:31 07/31/24 15:31 Temperature 103.3 F H 103.3 F H Pulse Rate 108 H 107 H Respiratory Rate 32 H 30 H Blood Pressure 158/68 H Pulse Oximetry 97 96 Oxygen Delivery Method Oximask Oximask Oxygen Flow Rate 8 8 07/31/24 16:00 07/31/24 16:00 Temperature 103.3 F H Pulse Rate 104 H Respiratory Rate 32 H Blood Pressure 128/60 Pulse Oximetry 95 Oxygen Delivery Method Oximask Oxygen Flow Rate 8
[2024-07-31 19:25] LABS: MRSA (Nasal) PCR DETECTED (Not Detect)
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
[2024-07-31] MEDS: FAMOTIDINE 20 MG/2 ML VIAL IV (21:01)
[2024-07-31] MEDS: SODIUM CHLORIDE 0.9% FLUSH 10 ML IV ×2 (21:01→21:06)
[2024-07-31] MEDS: ENOXAPARIN 40 MG/0.4 ML SYRINGE SUBCUT (21:01)
[2024-07-31 22:54] LABS: Acinetobacter calcoa-baumannii Not Detected (Not Detect); Bacteroides fragilis Not Detected (Not Detect); Candida albicans Not Detected (Not Detect); Candida auris Not Detected (Not Detect); Candida glabrata Not Detected (Not Detect); Candida krusei Not Detected (Not Detect); Candida parapsilosis Not Detected (Not Detect); Candida tropicalis Not Detected (Not Detect); Cryptococcus neoformans/gatti Not Detected (Not Detect); Enterobacter cloacae complex Not Detected (Not Detect); Enterobacterales Not Detected (Not Detect); Enterococcus faecalis Not Detected (Not Detect); Enterococcus faecium Not Detected (Not Detect); Haemophilus influenzae Not Detected (Not Detect); Klebsiella aerogenes Not Detected (Not Detect); Listeria monocytogenes Not Detected (Not Detect); Neisseria meningitidis Not Detected (Not Detect); Proteus species Not Detected (Not Detect); Pseudomonas aeruginosa Not Detected (Not Detect); Salmonella species Not Detected (Not Detect); Serratia marcescens Not Detected (Not Detect); Staphylococcus epidermidis Not Detected (Not Detect); Staphylococcus lugdunensis Not Detected (Not Detect); Staphylococcus species Not Detected (Not Detect); Stenotrophomonas maltophilia Not Detected (Not Detect); Streptococcus agalactiae (Gr B Not Detected (Not Detect); Streptococcus pneumonia Not Detected (Not Detect); Streptococcus pyogenes (Gr A) Not Detected (Not Detect); Streptococcus species Detected (Not Detect)
[2024-07-31] MEDS: VANCOMYCIN 1,250 MG/250 ML PIGGYBACK 250 MG IV (22:55)
[2024-08-01] VITALS (57 sets, daily range): BP systolic 107–212; BP diastolic 50–97; PULSE 82–109; RESP 13–36; TEMP 36.9–38.9; O2SAT 78–100
--- NOTE | 2024-08-01 04:06 | RT ---
Pt request to take a break from BIPAP. Placed on 8L oximask, spo2 97%. RN aware and will monitor Spo2
[2024-08-01] MEDS: SODIUM CHLORIDE 0.9% FLUSH 10 ML IV ×3 (06:33→20:21)
[2024-08-01] MEDS: VANCOMYCIN 1,250 MG/250 ML PIGGYBACK 250 MG IV ×3 (06:33→22:20)
[2024-08-01 07:48] LABS: Add Manual Diff / Slide Review NO; Basophils Absolute Auto 0 /uL (0-100); Basophils Percent Auto 0.3 % (0-2); Eosinophils Absolute Auto 0 /uL (0-450); Eosinophils Percent Auto 0.1 % (2-4); Hematocrit 44.7 % (41-53); Hemoglobin 14.6 g/dL (13.5-17.5); Lymphocytes Absolute Auto 500 /uL (1100-4500); Lymphocytes Percent Auto 6.2 % (25-40); Mean Corpuscular HGB Conc 32.7 % (30-36); Mean Corpuscular Hemoglobin 30.5 PG (26-34); Mean Corpuscular Volume 93.4 fL (80-100); Monocytes Absolute Auto 300 /uL (0-900); Monocytes Percent Auto 3.8 % (3-14); Neutrophils Absolute Auto 8000 /uL (1500-7000); Neutrophils Percent Auto 89.6 % (50-75); Platelet Count 197 X10^3/uL (150-400); Red Blood Cell Count 4.79 X10^6/uL (4.5-5.9); Red Cell Distribution Width 15.1 % (11.6-14.8); White Blood Cell Count 8.9 X10^3/uL (4.5-11.0)
[2024-08-01 07:59] LABS: BUN Creatinine Ratio 22.6 (6-22); Blood Urea Nitrogen 24 mg/dL (9-20); Carbon Dioxide 35 mmol/L (22-32); Chloride 97 mmol/L (98-107); Estimated Glomerular Filt Rate > 60 mL/min (>60); Glucose 110 mg/dL (80-110); HEMOLYSIS 26 (0-50); Sodium 136 mmol/L (137-145)
[2024-08-01] MEDS: FAMOTIDINE 20 MG/2 ML VIAL IV ×2 (08:03→20:21)
[2024-08-01] MEDS: HYDROMORPHONE 0.5 MG INJ 1 MG IV (08:03)
[2024-08-01] MEDS: ENOXAPARIN 40 MG/0.4 ML SYRINGE SUBCUT ×2 (08:03→20:21)
[2024-08-01] MEDS: cefTRIAXone 2,000 MG in SODIUM CHLORIDE 0.9% 100 ML 200 MG IV (13:07)
[2024-08-01] MEDS: ACETAMINOPHEN IV 1,000 MG/100 ML VIAL 400 MG IV (13:45)
--- NOTE | 2024-08-01 13:49 | PC.NURSE ---
Patient off and on BiPAP throughout shift. 8L oxymask when not on BiPAP, O2 88-94% on oxymask. Oxygen quickly dips to around 80% and increases back to 88-94% while sleeping, patient states they sleep with a CPAP at home. Patient easily falls asleep and is sleeping frequently throughout day, BiPAP placed when patient is asleep. While awake, responds appropriately and is calm and cooperative.
--- NOTE | 2024-08-01 14:02 | DI.ECHO.S_ITS ---
[facility] : : [address] : : [place] : : [id number] : : Phone: [phone] Echocardiogram Report + :Name: KEYA JETER Study Date: 08/01/2024 Height: 72 in : :[facility] : Weight: 377 lb : : Gender: Male BSA: 2.8 m2 : :: 1960 Age: 64 yrs BP: 157/65 mmHg: :Reason For Study: CHF. METHAMPHETAMINE ABUSE, SEPSIS :: Performed By: Nuisance Animal Damage Control Agent Danae Myers : :Referring: CHIRAG BARROSO : + Interpretation Summary Sinus tachycardia. Normal LV size and mildly increased wall thickness. Normal wall motion and LV systolic function. Ejection fraction 60-65%. Mildly dilated RV with normal RV systolic function. Otherwise normal chamber sizes Mild mitral annular calcification. No significant valvular abnormalities otherwise, though limited visualization precludes definitive valvular evaluation. There is thickened echogenic structure in the superior aspect of right atrium which in the right clinical setting could be due to thrombus or prominent anatomic remnant (such as eustacian valve or chiari network) If endocarditis is clinically suspected consider ALEXA. Procedure: A two-dimensional transthoracic echocardiogram with color flow and Doppler was performed. The study quality was technically difficult. There is no prior echocardiogram noted for this patient. A contrast injection of Definity was performed to improve assessment of LV function. The heart rate ranged between 93-107 bpm during the study. Left Ventricle: There is mild concentric left ventricular hypertrophy. The left ventricle is normal in size. The ejection fraction is estimated to be 60- 65%. Diastolic function could not be accurately assessed due to tachycardia. Right Ventricle: The right ventricle is mildly dilated. The right ventricular systolic function is normal. Atria: The left atrium is not well visualized. A prominent eustachian valve is noted. Right atrium not well visualized secondary to technical limitations. Hyperechoic structure noted in right atria. Mitral Valve: The mitral valve leaflets are mildly calcified. There is mild to moderate mitral annular calcification. There is no mitral valve stenosis. There is trace mitral regurgitation. Aortic Valve: The aortic valve is grossly normal. The aortic valve opens well. There is no aortic valve stenosis. No aortic regurgitation is present. Tricuspid Valve: The tricuspid valve is not well visualized, but is grossly normal. There is no tricuspid stenosis. There is a trace or physiologic amount of tricuspid regurgitation. Pulmonic Valve: The pulmonic valve is not well visualized. Great Vessels: The aortic root is normal size. The ascending aorta is mildly enlarged. The aortic arch is mildly enlarged. The pulmonary is not well visualized. The IVC is dilated, but has some respiratory collapse suggesting high central venous pressure. Unable to evaluate sniff. Pericardium/ Pleura There is no pericardial effusion. There is no pleural effusion. MMode/2D Measurements & Calculations LVIDd: 5.7 cm LVOT diam: 2.6 cm LVIDs: 3.4 cm Ao root diam: 3.8 cm FS: 39.3 % asc Aorta Diam: 4.0 cm EPSS: 0.47 cm Ao Arch Diam (Prox Trans): 3.9 cm IVSd: 1.2 cm LVPWd: 1.2 cm LV singleton. diameter/BSA (cm/m^2): 2.0 LV sys. diameter/BSA (cm/m^2): 1.2 LA A2 area: 29.4 cm2 IVC diam: 2.3 cm RVD1 (basal): 4.8 cm TAPSE: 3.1 cm Doppler Measurements & Calculations Ao V2 max: 172.0 cm/sec LVOT Max Joby: 119.9 cm/sec Ao V2 mean: 112.6 cm/sec LV V1 max P.7 mmHg Ao max P.8 mmHg LV V1 VTI: 21.7 cm Ao mean P.7 mmHg KAMILAH(I,D): 4.7 cm2 Ao V2 VTI: 24.1 cm KAMILAH(V,D): 3.6 cm2 sev ratio: 0.90 KAMILAH indexed to BSA (cm^2/m^2): 1.7 MV E max joby: 90.7 cm/sec SV(LVOT): 113.0 ml MV A max joby: 107.3 cm/sec MV E/A: 0.85 MV dec time: 0.08 sec Electronically signed by: Yaima Mccarthy M.D. on Reading Physician:08/01/2024 04:28 PM
[2024-08-01 15:11] LABS: Vancomycin Trough 13.5 ug/mL (10-20)
--- NOTE | 2024-08-01 16:16 | CM.DPC ---
DCP Cont: Per MD, pt remains on oxymask today due to de-satting and more clear than yesterday but still confused and likely confusion from leg cellulitis and possible bacteremia and cultures pending. Not stable for discharge yet today. SW met bedside with pt and his ex- Shanell and pt with oxymask on and able to make a couple brief statements but then drifts off to sleep and not answering questions very coherently. Ex- Shanell confirms that pt was living in a local motel and just moved out into a [address] on his friend's property (Shanell states this friend is supportive and sober and helpful) about 3 days ago but that pt has some friends that are into drinking and drugs that come by to visit him and sometimes help him. Pt has a hx of leg cellulitis and staph infections and his Providers have been encouraging him to lose weight and stop smoking so that pt can have hernia and knee replacement surgery and to use CPAP at night but Shanell states he has not been compliant. Shanell states pt has a remote hx of Inpt ANGEL tx but likely 20 years ago. Pt does not have a hx of SNF or HH that Shanell is aware of and pt does not use DME to ambulate at baseline but historically has not been very mobile due to the swelling and pain in his legs. Shanell is hopeful pt can get into SNF as pt has stated recently that he would be agreeable. SW discussed the potential barriers to SNF being his insurance reimbursement for SNF and his ANGEL hx (unclear if Shanell is aware of pt's current daily meth use). Shanell confirms that she cannot provide the assist and care herself that pt might need at d/c but she is supportive of helping him get the care he needs. Plan: SW to follow for likely need for PT/OT eval when pt more medically appropriate to determine discharge planning needs and further discussion with pt regarding resources and needs at d/c. JOEL Burdick
[2024-08-01] MEDS: NICOTINE 21 MG PATCH TOP (16:47)
--- NOTE | 2024-08-01 17:04 | PM.PN.1 ---
Subjective Subjective Interval history: 64-year-old male with hypertension, reported history of congestive heart failure, methamphetamine dependence, tobacco dependence, class 3 obesity and a chronic umbilical hernia who presented to the emergency department yesterday via EMS with complaints of fever and weakness. He was admitted with sepsis, acute metabolic encephalopathy, acute hypoxic, hypercarbic respiratory failure. He initially was requiring 8 L of oxygen. Overnight, he did clear considerably. This morning, he is able to tell me that his right leg has been more swollen, red, and painful than usual. Also notes he had scabs and wounds that were oozing which is atypical for him. He reportedly uses CPAP at night at home. He is hungry and thirsty and also requesting pain medicine for his legs. He denies any other pain. Additionally, he did have 2/4 blood cultures become positive for Gram-positive cocci. Exam Vital Signs (past 8 hours): - 08/01/24 09:30 08/01/24 10:00 08/01/24 10:00 Temperature 99.1 F 99.3 F Pulse Rate 90 91 H Respiratory Rate Blood Pressure 170/80 H Pulse Oximetry 100 100 Oxygen Delivery Method Fraction of Inspired Oxygen 08/01/24 10:30 08/01/24 11:00 08/01/24 11:00 Temperature 99.7 F H 99.9 F H Pulse Rate 98 H 100 H Respiratory Rate 26 H 24 Blood Pressure 162/72 H Pulse Oximetry 78 L 94 Oxygen Delivery Method Fraction of Inspired Oxygen 08/01/24 11:30 08/01/24 12:00 08/01/24 12:00 Temperature 100.2 F H Pulse Rate 102 H Respiratory Rate 22 Blood Pressure 157/65 H Pulse Oximetry 90 L Oxygen Delivery Method BiPAP Oximask Fraction of Inspired Oxygen 08/01/24 12:00 08/01/24 12:30 08/01/24 13:00 Temperature 100.4 F H 100.8 F H 101.3 F H Pulse Rate 103 H 102 H 107 H Respiratory Rate 22 24 28 H Blood Pressure Pulse Oximetry 86 L 91 85 L Oxygen Delivery Method Fraction of Inspired Oxygen 08/01/24 13:01 08/01/24 13:01 08/01/24 13:30 Temperature 101.3 F H 101.7 F H Pulse Rate 107 H 109 H Respiratory Rate 27 H 28 H Blood Pressure 212/97 H Pulse Oximetry 84 L 86 L Oxygen Delivery Method Fraction of Inspired Oxygen 08/01/24 13:42 08/01/24 13:42 08/01/24 14:00 Temperature 101.8 F H Pulse Rate 109 H Respiratory Rate 27 H Blood Pressure 194/86 H 194/86 H Pulse Oximetry 80 L Oxygen Delivery Method Fraction of Inspired Oxygen 50 08/01/24 14:00 08/01/24 14:30 08/01/24 15:00 Temperature 102.0 F H 101.7 F H 101.3 F H Pulse Rate 105 H 101 H 96 H Respiratory Rate 25 H 28 H 24 Blood Pressure Pulse Oximetry 96 94 93 Oxygen Delivery Method Fraction of Inspired Oxygen 08/01/24 15:30 08/01/24 16:00 08/01/24 16:00 Temperature 101.1 F H 100.9 F H Pulse Rate 93 H 97 H Respiratory Rate 30 H 32 H Blood Pressure Pulse Oximetry 93 82 L Oxygen Delivery Method BiPAP Oximask Fraction of Inspired Oxygen Fraction of Inspired Oxygen 50 Oxygen Delivery Method BiPAP,Oximask Oxygen Flow Rate 8 Narrative Exam Narrative: GEN: Middle-aged male, Alert and oriented x 3, calm and cooperative, NAD HEENT:NC, Face symmetric CHEST: Respiratory excursions symmetric, CTAB CV: RRR, 2/6 systolic murmur heard best at the left sternal border, no R/G ABD: Soft, obese, NT/ND, BT present in all 4 quadrants, body habitus limits exam EXTR: warm, well perfused, left lower extremity is swollen with chronic venous stasis changes, deformity related to previous open fracture, right lower extremity is quite erythematous, warm and tender to palpation, there is scab noted overlying the pretibial area and laterally the scabs have been unroofed with serous drainage SKIN: warm and dry, no rash NEURO: Alert and oriented x 3, nonfocal Objective Labs 08/01/24 07:30 08/01/24 07:30 Labs: Laboratory Results - last 24 hr 07/31/24 07/31/24 08/01/24 12:25 17:00 07:30 WBC 8.9 RBC 4.79 Hgb 14.6 Hct 44.7 MCV 93.4 MCH 30.5 MCHC 32.7 RDW 15.1 H Plt Count 197 Neut % (Auto) 89.6 H Lymph % (Auto) 6.2 L [place] % (Auto) 3.8 Eos % (Auto) 0.1 L Baso % (Auto) 0.3 Neut # (Auto) 8000 H Lymph # (Auto) 500 L [place] # (Auto) 300 Eos # (Auto) 0 Baso # (Auto) 0 Sodium 136 L Potassium 4.0 Chloride 97 L Carbon Dioxide 35 H BUN 24 H Creatinine 1.06 Estimated GFR > 60 BUN/Creatinine Ratio 22.6 H Glucose 110 Calcium 8.0 L Nasal Screen MRSA (PCR) Detected H Vancomycin Trough A.calcoaceticus-baumannii cmplx PCR Not detected Bacteroides fragilis Not detected Gris albicans (PCR) Not detected Gris auris (PCR) Not detected C. glabrata (PCR) Not detected C. krusei (PCR) Not detected C. parapsilosis (PCR) Not detected C. tropicalis (PCR) Not detected C. neoform/gattii (PCR) Not detected Enterobacterales (PCR) Not detected E. cloacae complex PCR Not detected Enterococc faecalis PCR Not detected Enterococc faecium PCR Not detected E. coli (PCR) Not detected H. influenzae (PCR) Not detected Klebsiella aerogenes (PCR) Not detected Klebsiella oxytoca PCR Not detected Klebsiella pneumoniae Not detected List. monocytogenes PCR Not detected N. meningitidis (PCR) Not detected Proteus species (PCR) Not detected Salmonella spp. (PCR) Not detected Serratia marcescens PCR Not detected Staphylococcus sp PCR Not detected Staph aureus (PCR) Not detected mecA/C & MREJ Resist Gene Not applicable mecA/C-Methicil Resis Gene Not applicable mcr-1 Colistin Res Gene PCR Not applicable Staph epidermidis (PCR) Not detected Staph lugdunensis PCR Not detected S. maltophilia (PCR) Not detected Streptococcus sp PCR Detected Group A Strep (PCR) Not detected Strep agalactiae (PCR) Not detected Strep pneumoniae (PCR) Not detected P. aeruginosa (PCR) Not detected Mercedes/B-Vanco Res Genes Not applicable blaIMP Car res Gene PCR Not applicable KPC-Carbap Res Gene PCR Not applicable blaNDM Car Res Gene PCR Not applicable OXA-48 Carbapenem Resis Gene (PCR) Not applicable blaVIM Car Res Gene PCR Not applicable CTX-M Gene Resistance (PCR) Not applicable 08/01/24 14:35 WBC RBC Hgb Hct MCV MCH MCHC RDW Plt Count Neut % (Auto) Lymph % (Auto) [place] % (Auto) Eos % (Auto) Baso % (Auto) Neut # (Auto) Lymph # (Auto) [place] # (Auto) Eos # (Auto) Baso # (Auto) Sodium Potassium Chloride Carbon Dioxide BUN Creatinine Estimated GFR BUN/Creatinine Ratio Glucose Calcium Nasal Screen MRSA (PCR) Vancomycin Trough 13.5 A.calcoaceticus-baumannii cmplx PCR Bacteroides fragilis Gris albicans (PCR) Gris auris (PCR) C. glabrata (PCR) C. krusei (PCR) C. parapsilosis (PCR) C. tropicalis (PCR) C. neoform/gattii (PCR) Enterobacterales (PCR) E. cloacae complex PCR Enterococc faecalis PCR Enterococc faecium PCR E. coli (PCR) H. influenzae (PCR) Klebsiella aerogenes (PCR) Klebsiella oxytoca PCR Klebsiella pneumoniae List. monocytogenes PCR N. meningitidis (PCR) Proteus species (PCR) Salmonella spp. (PCR) Serratia marcescens PCR Staphylococcus sp PCR Staph aureus (PCR) mecA/C & MREJ Resist Gene mecA/C-Methicil Resis Gene mcr-1 Colistin Res Gene PCR Staph epidermidis (PCR) Staph lugdunensis PCR S. maltophilia (PCR) Streptococcus sp PCR Group A Strep (PCR) Strep agalactiae (PCR) Strep pneumoniae (PCR) P. aeruginosa (PCR) Mercedes/B-Vanco Res Genes blaIMP Car res Gene PCR KPC-Carbap Res Gene PCR blaNDM Car Res Gene PCR OXA-48 Carbapenem Resis Gene (PCR) blaVIM Car Res Gene PCR CTX-M Gene Resistance (PCR) PFSH Medical History Hx of open fracture Social History Smoking Status: Current some day smoker Assessment & Plan Assessment & Plan narrative: 1. Gram-positive Sepsis Suspect this is secondary to his right lower extremity cellulitis. I do have ongoing concern about risk for endocarditis given his cardiac murmur. Echocardiogram is pending. Follow-up blood cultures will be drawn tomorrow. Await identification and sensitivities. Continue ceftriaxone and vancomycin for now. 2. Acute metabolic encephalopathy Likely secondary to a combination of sepsis and hypercarbia. Improved today. 3. Acute hypoxic hypercarbic respiratory failure Continue supplemental oxygen, BiPAP as needed. 4. Question of congestive heart failure Entresto is listed as a home medication, but there is no documentation of congestive heart failure outside of a couple of emergency department visits with reports of lower extremity edema. Await echocardiogram results. BNP was elevated, but only at 536. 5. Cardiac murmur As above, will obtain an echocardiogram. 6. Methamphetamine abuse He does report daily use of methamphetamine and states he smokes it. He reports last IV use 20 or 30 years ago. 7. Class 3 obesity BMI is 48. This does increase his risk for morbidity and mortality. Code status Full Prophylaxis Continue b.i.d. Lovenox Disposition Continue ICU care Time-Based Coding :: [TOTAL MINUTES] spent with patient and on the chart (including review of chart, obtaining history, exam, reviewing outside data, placing orders, documenting exam and treatment plan, and counseling patient) on [DATE].
[2024-08-01 18:44] LABS: Vancomycin Peak 26.4 ug/mL (20-40)
[2024-08-02] VITALS (55 sets, daily range): BP systolic 126–171; BP diastolic 65–83; PULSE 79–97; RESP 16–37; TEMP 36.4–38; O2SAT 89–98
[2024-08-02] MEDS: OXYCODONE 5 MG/5 ML ORAL SOLUTION 10 MG PO (01:48)
[2024-08-02 02:16] LABS: Ur Creatinine Normal (Normal); Ur Specific Gravity Normal (Normal); Urine Amphetamines Positive (Negative); Urine Cocaine Negative (Negative); Urine MDMA Negative (Negative); Urine Methamphetamines Positive (Negative); Urine Opiates Negative (Negative); Urine Phencyclidine Negative (Negative); Urine THC Negative (Negative); Urine pH Normal (Normal)
[2024-08-02 02:17] LABS: Urine Barbiturates Negative (Negative); Urine Benzodiazepines Negative (Negative); Urine Methadone Negative (Negative); Urine Oxycodone Negative (Negative); Urine Tricyclic Antidepressant Negative (Negative)
[2024-08-02 04:24] LABS: Add Manual Diff / Slide Review NO; Basophils Absolute Auto 0 /uL (0-100); Basophils Percent Auto 0.3 % (0-2); Eosinophils Absolute Auto 0 /uL (0-450); Eosinophils Percent Auto 0.2 % (2-4); Hematocrit 44.8 % (41-53); Hemoglobin 14.4 g/dL (13.5-17.5); Lymphocytes Absolute Auto 900 /uL (1100-4500); Lymphocytes Percent Auto 12.7 % (25-40); Mean Corpuscular HGB Conc 32.2 % (30-36); Mean Corpuscular Hemoglobin 30.2 PG (26-34); Mean Corpuscular Volume 93.9 fL (80-100); Monocytes Absolute Auto 500 /uL (0-900); Monocytes Percent Auto 6.7 % (3-14); Neutrophils Absolute Auto 5700 /uL (1500-7000); Neutrophils Percent Auto 80.1 % (50-75); Platelet Count 220 X10^3/uL (150-400); Red Blood Cell Count 4.77 X10^6/uL (4.5-5.9); Red Cell Distribution Width 14.6 % (11.6-14.8); White Blood Cell Count 7.2 X10^3/uL (4.5-11.0)
[2024-08-02 04:49] LABS: BUN Creatinine Ratio 31.8 (6-22); Blood Urea Nitrogen 27 mg/dL (9-20); Calcium 8.3 mg/dL (8.4-10.2); Carbon Dioxide 37 mmol/L (22-32); Chloride 97 mmol/L (98-107); Estimated Glomerular Filt Rate > 60 mL/min (>60); Glucose 152 mg/dL (80-110); HEMOLYSIS 21 (0-50); Potassium 4.5 mmol/L (3.4-5.1); Sodium 135 mmol/L (137-145)
[2024-08-02] MEDS: VANCOMYCIN 1,250 MG/250 ML PIGGYBACK 250 MG IV ×3 (06:27→22:42)
--- NOTE | 2024-08-02 08:25 | PM.PN.1 ---
Subjective Subjective Interval history: Summary: 64-year-old male with hypertension, reported history of congestive heart failure, methamphetamine dependence, tobacco dependence, class 3 obesity and a chronic umbilical hernia who presented to the emergency department yesterday via EMS with complaints of fever and weakness. He was admitted with sepsis, acute metabolic encephalopathy, acute hypoxic, hypercarbic respiratory failure. He initially was requiring 8 L of oxygen. Overnight, he did clear considerably. On 08/01, he is able to tell me that his right leg has been more swollen, red, and painful than usual. Also notes he had scabs and wounds that were oozing which is atypical for him. He reportedly uses CPAP at night at home. He is hungry and thirsty and also requesting pain medicine for his legs. He denies any other pain. Additionally, he did have 2/4 blood cultures become positive for Gram-positive cocci. S: He states he feels better than yesterday. He denies any specific. He does spend a lot of time talking about an injury and [place] for which he was a loss who pending, resulting in his umbilical hernia. He denies recent skin injury or concerns. His right leg is fairly red however. Exam Vital Signs (past 8 hours): - 08/02/24 00:30 08/02/24 01:00 08/02/24 01:00 Temperature 100.2 F H 100.2 F H Pulse Rate 92 H 90 Respiratory Rate 37 H 30 H Blood Pressure 171/77 H Pulse Oximetry 94 95 Oxygen Delivery Method Oxygen Flow Rate 0 08/02/24 01:30 08/02/24 01:42 08/02/24 02:00 Temperature 100.2 F H 99.9 F H Pulse Rate 90 90 Respiratory Rate 29 H 25 H Blood Pressure Pulse Oximetry 96 96 Oxygen Delivery Method Oxygen Flow Rate 10 10 08/02/24 02:00 08/02/24 02:30 08/02/24 02:58 Temperature 99.5 F Pulse Rate 87 88 Respiratory Rate 18 24 Blood Pressure 154/66 H Pulse Oximetry 96 93 Oxygen Delivery Method Oximask Oxygen Flow Rate 9.5 9.5 08/02/24 03:00 08/02/24 03:01 08/02/24 03:01 Temperature 99.3 F 99.3 F Pulse Rate 91 H 90 Respiratory Rate 28 H 26 H Blood Pressure 135/69 Pulse Oximetry 94 93 Oxygen Delivery Method Oxygen Flow Rate 9.5 9.5 9.5 08/02/24 03:30 08/02/24 04:00 08/02/24 04:00 Temperature 99.1 F 99.0 F Pulse Rate 93 H 95 H Respiratory Rate 25 H 26 H Blood Pressure Pulse Oximetry 93 92 Oxygen Delivery Method BiPAP Oxygen Flow Rate 9.5 08/02/24 04:00 08/02/24 04:30 08/02/24 05:00 Temperature 98.8 F Pulse Rate 94 H Respiratory Rate 24 Blood Pressure 142/75 H 147/76 H Pulse Oximetry 94 Oxygen Delivery Method Oxygen Flow Rate 9.5 08/02/24 05:00 08/02/24 05:30 08/02/24 06:00 Temperature 98.6 F 98.6 F 98.6 F Pulse Rate 94 H 95 H 95 H Respiratory Rate 26 H 26 H 26 H Blood Pressure Pulse Oximetry 94 93 93 Oxygen Delivery Method Oxygen Flow Rate 08/02/24 06:00 08/02/24 06:30 08/02/24 07:00 Temperature 98.6 F 98.8 F Pulse Rate 95 H 96 H Respiratory Rate 26 H 27 H Blood Pressure 147/74 H Pulse Oximetry 93 93 Oxygen Delivery Method Oxygen Flow Rate 9.5 08/02/24 07:00 Temperature Pulse Rate Respiratory Rate Blood Pressure 146/74 H Pulse Oximetry Oxygen Delivery Method Oxygen Flow Rate Fraction of Inspired Oxygen 35 Oxygen Delivery Method BiPAP Oxygen Flow Rate 9.5 Narrative Exam Narrative: NAD, alert and oriented. Fluent speech. He was somewhat tangential. He was morbidly obese. Lungs are clear, normal rate and effort. Heart is regular, no murmur gallop or rub. Abdomen is soft, non distended. Extremities are with 1+ edema in the right leg is red compared to the left. There are changes of chronic venous stasis in both legs. Objective Labs 08/02/24 04:10 08/02/24 04:10 Labs: Laboratory Results - last 24 hr 07/31/24 08/01/24 08/01/24 12:25 14:35 18:05 WBC RBC Hgb Hct MCV MCH MCHC RDW Plt Count Neut % (Auto) Lymph % (Auto) [place] % (Auto) Eos % (Auto) Baso % (Auto) Neut # (Auto) Lymph # (Auto) [place] # (Auto) Eos # (Auto) Baso # (Auto) Sodium Potassium Chloride Carbon Dioxide BUN Creatinine Estimated GFR BUN/Creatinine Ratio Glucose Calcium Vancomycin Peak 26.4 Vancomycin Trough 13.5 U Opiates 300ng/mL cut Ur Oxycodone Screen Urine Methadone Screen Ur Barbiturates Screen U Tricyclic Antidepress Ur Phencyclidine Scrn Ur Amphetamines Screen U Methamphetamines Scrn Ur MDMA Scrn (Ecstasy) U Benzodiazepines Scrn Urine Cocaine Screen U Marijuana (THC) Screen Urine pH Urine Specific [place] Ur Creatinine A.calcoaceticus-baumannii cmplx PCR Not detected Bacteroides fragilis Not detected Gris albicans (PCR) Not detected Gris auris (PCR) Not detected C. glabrata (PCR) Not detected C. krusei (PCR) Not detected C. parapsilosis (PCR) Not detected C. tropicalis (PCR) Not detected C. neoform/gattii (PCR) Not detected Enterobacterales (PCR) Not detected E. cloacae complex PCR Not detected Enterococc faecalis PCR Not detected Enterococc faecium PCR Not detected E. coli (PCR) Not detected H. influenzae (PCR) Not detected Klebsiella aerogenes (PCR) Not detected Klebsiella oxytoca PCR Not detected Klebsiella pneumoniae Not detected List. monocytogenes PCR Not detected N. meningitidis (PCR) Not detected Proteus species (PCR) Not detected Salmonella spp. (PCR) Not detected Serratia marcescens PCR Not detected Staphylococcus sp PCR Not detected Staph aureus (PCR) Not detected mecA/C & MREJ Resist Gene Not applicable mecA/C-Methicil Resis Gene Not applicable mcr-1 Colistin Res Gene PCR Not applicable Staph epidermidis (PCR) Not detected Staph lugdunensis PCR Not detected S. maltophilia (PCR) Not detected Streptococcus sp PCR Detected Group A Strep (PCR) Not detected Strep agalactiae (PCR) Not detected Strep pneumoniae (PCR) Not detected P. aeruginosa (PCR) Not detected Mercedes/B-Vanco Res Genes Not applicable blaIMP Car res Gene PCR Not applicable KPC-Carbap Res Gene PCR Not applicable blaNDM Car Res Gene PCR Not applicable OXA-48 Carbapenem Resis Gene (PCR) Not applicable blaVIM Car Res Gene PCR Not applicable CTX-M Gene Resistance (PCR) Not applicable 08/02/24 08/02/24 01:50 04:10 WBC 7.2 RBC 4.77 Hgb 14.4 Hct 44.8 MCV 93.9 MCH 30.2 MCHC 32.2 RDW 14.6 Plt Count 220 Neut % (Auto) 80.1 H Lymph % (Auto) 12.7 L [place] % (Auto) 6.7 Eos % (Auto) 0.2 L Baso % (Auto) 0.3 Neut # (Auto) 5700 Lymph # (Auto) 900 L [place] # (Auto) 500 Eos # (Auto) 0 Baso # (Auto) 0 Sodium 135 L Potassium 4.5 Chloride 97 L Carbon Dioxide 37 H BUN 27 H Creatinine 0.85 Estimated GFR > 60 BUN/Creatinine Ratio 31.8 H Glucose 152 H Calcium 8.3 L Vancomycin Peak Vancomycin Trough U Opiates 300ng/mL cut Negative Ur Oxycodone Screen Negative Urine Methadone Screen Negative Ur Barbiturates Screen Negative U Tricyclic Antidepress Negative Ur Phencyclidine Scrn Negative Ur Amphetamines Screen Positive H U Methamphetamines Scrn Positive H Ur MDMA Scrn (Ecstasy) Negative U Benzodiazepines Scrn Negative Urine Cocaine Screen Negative U Marijuana (THC) Screen Negative Urine pH Normal Urine Specific [place] Normal Ur Creatinine Normal A.calcoaceticus-baumannii cmplx PCR Bacteroides fragilis Gris albicans (PCR) Gris auris (PCR) C. glabrata (PCR) C. krusei (PCR) C. parapsilosis (PCR) C. tropicalis (PCR) C. neoform/gattii (PCR) Enterobacterales (PCR) E. cloacae complex PCR Enterococc faecalis PCR Enterococc faecium PCR E. coli (PCR) H. influenzae (PCR) Klebsiella aerogenes (PCR) Klebsiella oxytoca PCR Klebsiella pneumoniae List. monocytogenes PCR N. meningitidis (PCR) Proteus species (PCR) Salmonella spp. (PCR) Serratia marcescens PCR Staphylococcus sp PCR Staph aureus (PCR) mecA/C & MREJ Resist Gene mecA/C-Methicil Resis Gene mcr-1 Colistin Res Gene PCR Staph epidermidis (PCR) Staph lugdunensis PCR S. maltophilia (PCR) Streptococcus sp PCR Group A Strep (PCR) Strep agalactiae (PCR) Strep pneumoniae (PCR) P. aeruginosa (PCR) Mercedes/B-Vanco Res Genes blaIMP Car res Gene PCR KPC-Carbap Res Gene PCR blaNDM Car Res Gene PCR OXA-48 Carbapenem Resis Gene (PCR) blaVIM Car Res Gene PCR CTX-M Gene Resistance (PCR) PFSH Medical History Hx of open fracture Social History Smoking Status: Current some day smoker Assessment & Plan Assessment & Plan narrative: 1. Gram-positive bacteremia Suspect this is secondary to his right lower extremity cellulitis. I do have ongoing concern about risk for endocarditis given his cardiac murmur. Echocardiogram is pending. Follow-up blood cultures will be drawn tomorrow. Await identification and sensitivities. Continue ceftriaxone and vancomycin for now. 2. Acute septic encephalopathy Likely secondary to a combination of sepsis and hypercarbia. Improved today. 3. Acute hypoxic hypercarbic respiratory failure Continue supplemental oxygen, BiPAP as needed. 4. Question of congestive heart failure Entresto is listed as a home medication, but there is no documentation of congestive heart failure outside of a couple of emergency department visits with reports of lower extremity edema. Await echocardiogram results. BNP was elevated, but only at 536. 5. Cardiac murmur As above, will obtain an echocardiogram. 6. Methamphetamine abuse He does report daily use of methamphetamine and states he smokes it. He reports last IV use 20 or 30 years ago. 7. Class 3 obesity BMI is 48. This does increase his risk for morbidity and mortality. 8. Possible right leg cellulitis related to chronic edema, present on admission and active. Plan: -BiPAP as needed -continue IV antibiotics including vancomycin -repeat a 2nd set of blood cultures to see if patient has cleared his bacteremia with antibiotics. -2D echo to assess valves. Code status Full Prophylaxis Lovenox Time-Based Coding :: [TOTAL MINUTES] spent with patient and on the chart (including review of chart, obtaining history, exam, reviewing outside data, placing orders, documenting exam and treatment plan, and counseling patient) on [DATE].
[2024-08-02] MEDS: FAMOTIDINE 20 MG/2 ML VIAL IV ×2 (08:59→20:09)
[2024-08-02] MEDS: ENOXAPARIN 40 MG/0.4 ML SYRINGE SUBCUT ×2 (08:59→20:09)
[2024-08-02] MEDS: NICOTINE 21 MG PATCH TOP (08:59)
[2024-08-02] MEDS: SODIUM CHLORIDE 0.9% FLUSH 10 ML IV ×2 (09:00→20:09)
[2024-08-02] MEDS: ACETAMINOPHEN IV 1,000 MG/100 ML VIAL 400 MG IV ×2 (10:44→20:37)
[2024-08-02] MEDS: cefTRIAXone 2,000 MG in SODIUM CHLORIDE 0.9% 100 ML 200 MG IV (11:03)
--- NOTE | 2024-08-02 11:51 | PT-IP ANOTE ---
PT consult received. PT reviewed chart and pt has bed rest order. Hospitalist is currently not available for PT to ask about this. PT checks in pt room and nsg inside, pt on BiPap and pt is dependent for rolling. PT and nsg agree that pt is not yet ready for skilled PT consult. Communicated with nsg about the bed rest order.
--- NOTE | 2024-08-02 11:51 | OT.IPNOTE ---
Pt still on Bipap and has bedrest orders, to check on pt tomorrow again for OT eval and if appropriate to see yet.
--- NOTE | 2024-08-02 14:24 | CM.DPNOTE ---
Addendum entered by JOEL Villatoro 08/02/24 15:34: TRANSONIC ENGINEER attempted to meet with pt in room. Sleeping heavily, not alert enough for DCP conversation at this time SL Original Note: DCP Note TRANSONIC ENGINEER reviewed EMR Per provider in morning rounds, likely will need 14 days of an IV abx, cultures pending for more. Will need midline. currently on Ceftriaxone and vanco. Echo pending. Per RN, pt quite weak today. needed assistance with eating. has been on and off BiPAP, currently on heated high flow. not very alert this morning, but now improved. Oriented to name/date/place but not circumstance. PT/OT held for today due to BiPAP, likely will be needed for DCP purposes. Plan: SW to follow for final ABX rec and PT/OT eval when pt more medically appropriate to determine discharge planning needs and further discussion with pt regarding resources and needs at d/c. JOEL Villatoro
--- NOTE | 2024-08-02 17:29 | PC.NURSE ---
Pt remains drowsy and partially oriented throughout shift. Wore bipap this morning, transitioned to oxymask and HFNC while awake. Pt temp up to 99.7, provider notified and PRN tylenol administered. Ate meals with assistance. No complaints of pain other than positional knee pain when turning.
[2024-08-02] MEDS: SENNOSIDES 8.6 MG TABLET PO (20:09)
[2024-08-03] VITALS (76 sets, daily range): BP systolic 65–163; BP diastolic 38–90; PULSE 63–90; RESP 8–40; TEMP 36.2–37.7; O2SAT 85–100
[2024-08-03] MEDS: OXYCODONE 5 MG/5 ML ORAL SOLUTION 10 MG PO (01:50)
[2024-08-03] MEDS: ACETAMINOPHEN IV 1,000 MG/100 ML VIAL 400 MG IV (02:18)
[2024-08-03 05:01] LABS: Hematocrit 44.1 % (41-53); Mean Corpuscular HGB Conc 31.9 % (30-36); Mean Corpuscular Hemoglobin 30.3 PG (26-34); Mean Corpuscular Volume 95.2 fL (80-100); Platelet Count 197 X10^3/uL (150-400); Red Blood Cell Count 4.63 X10^6/uL (4.5-5.9); Red Cell Distribution Width 14.8 % (11.6-14.8); White Blood Cell Count 6.2 X10^3/uL (4.5-11.0)
[2024-08-03 05:21] LABS: BUN Creatinine Ratio 34.2 (6-22); Blood Urea Nitrogen 26 mg/dL (9-20); Calcium 8.4 mg/dL (8.4-10.2); Carbon Dioxide 37 mmol/L (22-32); Chloride 97 mmol/L (98-107); Estimated Glomerular Filt Rate > 60 mL/min (>60); Glucose 137 mg/dL (80-110); HEMOLYSIS < 15 (0-50); Sodium 135 mmol/L (137-145)
[2024-08-03] MEDS: VANCOMYCIN 1,250 MG/250 ML PIGGYBACK 250 MG IV ×3 (06:32→22:01)
--- NOTE | 2024-08-03 06:41 | PC.NURSE ---
New Grad Rn Note-Patient has been weak and fatigued, oriented to person, place, month, and year, speech is mumbled and sometimes delayed. Wore Bipap from 2230 to 0200, otherwise is on 9-12 HFNC, RR 20-30, coarse lung sounds. IV Tylenol given for headache and pain, oxycodone elixer given, but patient vomitted part of it up during a coughing spell. RLE continues to weep sang fluid. SR, VSS
--- NOTE | 2024-08-03 08:24 | OT.IPNOTE ---
HOLD OT eval as per nursing pt not arousing and on 8L [place]. To check again if pt is appropriate for OT eval tomorrow, if not -to discharge OT orders.
--- NOTE | 2024-08-03 08:24 | PT-IP ANOTE ---
PT checks in on pt and speaks with nsg again today. Pt is on 8L HFNC and is sleeping soundly and not really arousable per nsg. Nsg and PT agree to hold PT again today. Once again, when he is ready for mobility, will need an OOB order and PT speaks with nsg. If pt is not appropriate for PT assessment next date, consider d/c order and reorder when pt appropriate for skilled PT assessment.
--- NOTE | 2024-08-03 08:32 | RT ---
Pt is currently on a 10L HFNC and saturations are hanging around 92%. Pt is not interested in going back on bipap at this time. Will check back later this morning on pt.
[2024-08-03] MEDS: NICOTINE 21 MG PATCH TOP (09:18)
[2024-08-03] MEDS: FAMOTIDINE 20 MG/2 ML VIAL IV ×2 (09:18→21:29)
[2024-08-03] MEDS: ENOXAPARIN 40 MG/0.4 ML SYRINGE SUBCUT ×2 (09:18→20:18)
[2024-08-03] MEDS: SODIUM CHLORIDE 0.9% FLUSH 10 ML IV ×3 (09:19→20:19)
--- NOTE | 2024-08-03 10:13 | PT-IP ANOTE ---
OT tells PT that pt was discussed in rounds and recommendation to d/c therapy orders at this time. Will d/c PT order.
--- NOTE | 2024-08-03 10:14 | OT.IPNOTE ---
Per Hospitalist okay to discharge therapy orders for pt as not medically appropriate for evals at this time.
--- NOTE | 2024-08-03 10:56 | CM.DPNOTE ---
Addendum entered by JOEL Villatoro 08/03/24 15:05: Per RN notes, pt became agitated throughout the day. started to throw things, see RN note for more. Per RN, pt needing to be intubated later in afternoon as well. CM team will continue to follow closely SL Original Note: DCP note [facility] reviewed EMR. Per chart review, pt on heated high flow. Per RN report, 10ltrs O2 at this time. Per RN, pt remains confused and weak. Per provider in morning rounds, echo results weird, plan to consult cardiology for next steps. Cultures came back negative. Potential need to transfer to higher level of care for cardiology/ID to follow closer. Medical POC pending. Transfer vs [facility] to follow for final ABX rec and PT/OT eval when pt more medically appropriate to determine discharge planning needs and further discussion with pt regarding resources and needs at d/c. JOEL Villatoro
[2024-08-03] MEDS: acetaZOLAMIDE 250 MG TABLET PO (12:03)
[2024-08-03] MEDS: FUROSEMIDE 40 MG/4 ML VIAL IV (12:03)
[2024-08-03] MEDS: cefTRIAXone 2,000 MG in SODIUM CHLORIDE 0.9% 100 ML 200 MG IV (12:03)
[2024-08-03] MEDS: LORazepam 2 MG/ML INJ IV (12:12)
[2024-08-03 12:51] LABS: Allen Test for ABG Passed? Positive; Base Excess ABG 4.8 mmol/L (-2-3); Blood Gas Collection Site Left Radial; Delivery System nrb; HCO3 ABG 38 mmol/L (23-27); Oxygen Saturation ABG 93 % (95-100); PCO2 ABG 98.7 mmHg (35-45); PO2 ABG 87 mmHg (80-100); TCO2 ABG 38 mmol/L (23-27); pH ABG 7.19 (7.35-7.45)
--- NOTE | 2024-08-03 13:57 | PC.NURSE ---
Addendum entered by Flip Doherty R.N. 08/03/24 14:35: Repeat ABG was drawn by RT and Dr. Griffin notified of results. RFlaca. made adjustments on BIPAP per , data technician to bedside at this time to obtain limited view ECHO as ordered. Dr. Griffin to bedside, continue to follow. Original Note: Entered room at 12noon to administer scheduled medications. Patient became agitated while this RN was asking him questions and setting up antibiotics. Patient started to yell, pull at his lines, and threw his pillow and pulse ox. cord across the room. Dr. Griffin notified of change in behavior. Ativan 2mg IV was ordered and given and Dr. Griffin came to bedside to assist. ABG drawn per orders and patient placed in BIPAP by RNestorT. Continue to follow closely.
--- NOTE | 2024-08-03 14:06 | DI.ECHO.S_ITS ---
[place] [facility] : : [id number] : : [place] : : [id number] : : Phone: [phone] Echocardiogram Report + + :Name: KEYA JETER Study Date: 08/03/2024 Height: 72 in : :[facility] ReadingLocation: Weight: 356 lb : : Gender: Male BSA: 2.7 m2 : :: 1960 Age: 64 yrs BP: 154/80 mmHg: :Reason For Study: SUBCOSTAL VIEW OF RA WITH DEFINITY, REASSESS : :RA FOR THROMBUS. : :Ordering Physician: BRENDA, : :SUSY PAZ Performed By: Elayne Jimenez : :Referring: SUSY GUTIERREZ : + + Interpretation Summary There is a linear echogenic structure seen in the right atrium that does not move with the cardiac cycle. It is not oscillating and less likely consistent with endocarditis. The structure may be originating near the IVC however it does not appear like a typical eustachian valve nor the more rare entity of cor triatriatum sawyer. Suspect that this is most likely an extracardiac structure versus artifact. ALEXA and/or CT chest may help clarify. Procedure: Images were not obtained from all of the standard acoustic windows due to the limited scope of the study. A contrast injection of Definity was performed to improve assessment of LV function. Comparison is made with the echocardiogram of 08/01/2024. Left Ventricle: The left ventricle is normal in size. There is mild-moderate concentric left ventricular hypertrophy. The left ventricular ejection fraction is normal. Right Ventricle: The right ventricle is mildly dilated. The right ventricular systolic function is normal. Atria: There is a linear echogenic structure seen in the right atrium that does not move with the cardiac cycle. It is not oscillating and less likely consistent with endocarditis. The structure may be originating near the IVC however it does not appear like a typical eustachian valve nor the more rare entity of cor triatriatum sawyer. Suspect that this is most likely an extracardiac structure versus artifact. ALEXA and/or CT chest may help clarify. Mitral Valve: The mitral valve is normal. Tricuspid Valve: The tricuspid valve is normal. Pericardium/ Pleura There is no pericardial effusion. There is no pleural effusion. MMode/2D Measurements & Calculations LVIDd: 5.6 cm LVIDs: 3.5 cm FS: 38.6 % IVSd: 1.4 cm LVPWd: 1.4 cm LV singleton. diameter/BSA (cm/m^2): 2.1 LV sys. diameter/BSA (cm/m^2): 1.3 Reading Physician:05:05 PM
[2024-08-03 14:16] LABS: Allen Test for ABG Passed? Positive; Base Excess ABG 11.7 mmol/L (-2-3); Blood Gas Collection Site Right Radial; Blood Gas Mode Bi-Level Ventilation; Delivery System BiPAP; HCO3 ABG 45 mmol/L (23-27); Oxygen Saturation ABG 79 % (95-100); PCO2 ABG 95.7 mmHg (35-45); PO2 ABG 53 mmHg (80-100); Respiratory Rate 16; TCO2 ABG 45 mmol/L (23-27); pH ABG 7.28 (7.35-7.45)
[2024-08-03 14:22] LABS: Allen Test for ABG Passed? Positive; Base Excess ABG 9.2 mmol/L (-2-3); Blood Gas Collection Site Left Radial; HCO3 ABG 42 mmol/L (23-27); Oxygen Saturation ABG 81 % (95-100); PCO2 ABG 97.2 mmHg (35-45); PO2 ABG 57 mmHg (80-100); TCO2 ABG 42 mmol/L (23-27); pH ABG 7.25 (7.35-7.45)
--- NOTE | 2024-08-03 14:49 | DIET.CONS ---
Dietary Consultation Note Admission Date: 07/31/2024 15:54 Assessment: 64 y M presenting with complains of fever and weakness. Dietitian consulted for poor dietary intake d/t medical condition. Per RN, pt on bipap, had change in behavior this afternoon. EMR reviewed. RN reports eating portion of breakfast this morning. Pt uses methamphetamine. Per RN, pt may need to be intubated. Will follow closely for plan of care and nutrition needs Ht: 182.88 cm Wt: 161.7 kg BMI: 48.2 UBW: 165.108 kg on 09/29/23 (non-significant weight loss) Last BM: () MNA: Eric Score: 12 Diet: 08/01/24 Breakfast General (Regular) Diet Diet Modifications: Food Texture: Level 7 - Regular Liquid Consistency: Level 0 - Thin Nutrition Percent Meal Consumed 100% 08/02/24 13:52 Labs: RBC 4.63 X10^6/uL (4.5-5.9) 08/03/24 04:10 Hgb 14.0 g/dL (13.5-17.5) 08/03/24 04:10 Hct 44.1 % (41-53) 08/03/24 04:10 Creatinine 0.76 mg/dL (0.66-1.25) 08/03/24 04:10 Lactate 1.5 mmol/L (0.7-2.1) 07/31/24 12:25 NT-Pro-B Natriuret Pep 536 pg/mL (<125) H 07/31/24 12:25 Electronically Signed by: Heike Kwok 08/03/24 14:49 Clinical Dietitian [address] [address]
--- NOTE | 2024-08-03 15:13 | P.CALLCOV_ITS ---
Call Coverage Note Note Date of Patient Contact: 08/03/24 Narrative of Care Provided: 64 M admitted with strep bacteremia. This morning he was awake and alert, but intermittently confused. In review of outside records he has previous admission to [facility] in 2022, presumably for OHS vs diastolic HF at that time. He was ? discharged with home AVAPS per discharge summary? His PCP discontinued his diuretic a few months ago, which the patient did state was accurate this morning. This afternoon he was agitated, with an abrupt change in mentation, he got 2 mg of ativan for agitation, blood gas checked at that time which showed resp. acidosis with PCO2 of 98, 7.19 pH. Placed on bipap, he has had persistent difficulties with the mask, no improvement, called anesthesia for intubation. I discussed with wood and hardware outfitter today regarding the abnormal echo (with thickened echogenic structure in the right atria (poss. thrombus) regarding need for ALEXA to look for thrombus. Discussed with Infectious disease and his group C strep is not typically associated with endocarditis. Initially wood and hardware outfitter recommended limited TTE with subcostal views and definity for further clarification which was performed just prior to need for intubation. Discussed briefly with tele- instructor kindergarten prior to intubation as well but will attempt to look for transfer at this time for higher level of care with need for cardiology, infectious disease, and instructor kindergarten services.
[2024-08-03] MEDS: propofoL 1,000 MG/100 ML VIAL 4.851 MG IV (15:16)
--- NOTE | 2024-08-03 15:17 | P.TELICUCN_ITS ---
History of Present Illness Consult details IF CAMERA ACTIVATED, patient seen via real-time interactive audiovisual communication: Camera activated Chief complaint: Weakness, URI symps Consent obtained for tele-well testing operator care: Yes Patient Location: ICU Provider location (State): [place] Other participants/roles: Dr. Griffin Narrative: 64 year old male with PMHX of FRENCH/OHV admitted to to icu for strep bacteremia and eval for CHF became progressively agitated and received ativan. became altered and hypercapneaic requiring intubation PFSH Medical History Hx of open fracture Social History Smoking Status: Current some day smoker Current Medications Current Medications Medications: Home Medications furosemide 40 mg tablet (Lasix) 40 mg PO DAILY #10 tabs 06/10/23 [Rx Confirmed 09/29/23] fluocinolone 0.025 % topical cream 1 applic topical BID #15 grams 07/04/23 [Rx Confirmed 09/29/23] hydrocortisone 0.5 % topical cream 1 applic topical TID PRN rash #28.4 grams 07/04/23 [Rx Confirmed 09/29/23] sacubitril 24 mg-valsartan 26 mg tablet (Entresto) 1 tab PO BID 07/04/23 [History Confirmed 09/29/23] doxycycline hyclate 100 mg tablet 100 mg PO BID #14 tabs 08/24/23 [Rx Confirmed 09/29/23] tramadol 50 mg tablet 50 mg PO Q8H PRN pain #10 tabs 08/24/23 [Rx Confirmed 09/29/23] Visit Medications (administered) Generic Name Dose Route Start Last Admin Trade Name Freq PRN Reason Stop Dose Admin Acetazolamide 250 mg 08/03/24 11:45 08/03/24 12:03 Acetazolamide 250 Mg Tablet PO 250 mg DAILY LORENZA Administration Enoxaparin Sodium 40 mg 07/31/24 21:00 08/03/24 09:18 Enoxaparin 40 Mg/0.4 Ml Syringe SUBCUT 40 mg BID LORENZA Administration Furosemide 40 mg 08/03/24 11:45 08/03/24 12:03 Furosemide 40 Mg/4 Ml Vial IV 40 mg DAILY LORENZA Administration Ceftriaxone Sodium 2,000 mg/ 100 mls @ 200 mls/hr 08/01/24 12:00 08/03/24 12:33 Sodium Chloride IV Infused Q24H LORENZA Infusion Vancomycin HCl 1,250 mg in 250 mls @ 250 mls/hr 07/31/24 23:00 08/03/24 07:35 Vancomycin IV Infused Q8H LORENZA Infusion Acetaminophen 1,000 mg in 100 mls @ 400 mls/hr 07/31/24 20:18 08/03/24 02:46 Ofirmev IV Infused Q6H PRN Infusion Fever/Mild Pain (1-3) Nicotine 21 mg 08/01/24 16:40 08/03/24 09:18 Nicotine 21 Mg Patch TOP 21 mg DAILY LORENZA Administration Sodium Chloride 10 ml 07/31/24 21:00 08/03/24 09:19 Sodium Chloride 0.9% Flush IV 10 ml BID LORENZA Administration Sodium Chloride 10 ml 07/31/24 20:13 08/03/24 12:03 Sodium Chloride 0.9% Flush IV 10 ml PRN PRN Administration Flush Exam Vital Signs (past 8 hours): - 08/03/24 07:30 08/03/24 08:00 08/03/24 08:00 Temperature 97.3 F L 97.3 F L Pulse Rate 85 82 Respiratory Rate 40 H 27 H Blood Pressure 139/73 Pulse Oximetry 93 92 Oxygen Delivery Method 08/03/24 08:00 08/03/24 08:30 08/03/24 09:00 Temperature 97.3 F L 97.5 F L Pulse Rate 85 85 Respiratory Rate 30 H 34 H Blood Pressure Pulse Oximetry 89 L 91 Oxygen Delivery Method High Flow Nasal Cannula 08/03/24 09:00 08/03/24 10:00 08/03/24 11:00 Temperature 97.7 F 97.9 F Pulse Rate 85 81 Respiratory Rate 26 H 18 Blood Pressure 153/90 H 157/77 H 155/72 H Pulse Oximetry 92 92 Oxygen Delivery Method 08/03/24 12:00 08/03/24 12:00 08/03/24 12:30 Temperature 97.7 F 98.1 F Pulse Rate 84 87 Respiratory Rate 22 33 H Blood Pressure 163/81 H Pulse Oximetry 95 98 Oxygen Delivery Method 08/03/24 12:49 08/03/24 12:49 08/03/24 13:00 Temperature 98.1 F 98.1 F Pulse Rate 89 81 Respiratory Rate 37 H 32 H Blood Pressure 162/77 H Pulse Oximetry 88 L 93 Oxygen Delivery Method 08/03/24 13:04 08/03/24 13:04 08/03/24 13:30 Temperature 98.1 F 98.1 F Pulse Rate 81 78 Respiratory Rate 27 H 20 Blood Pressure 163/79 H Pulse Oximetry 93 93 Oxygen Delivery Method 08/03/24 14:00 08/03/24 14:00 Temperature 98.1 F Pulse Rate 80 Respiratory Rate 28 H Blood Pressure 154/80 H Pulse Oximetry 91 Oxygen Delivery Method Fraction of Inspired Oxygen 40 Oxygen Delivery Method High Flow Nasal Cannula Oxygen Flow Rate 10 Objective Labs 08/03/24 04:10 08/03/24 04:10 Labs: Laboratory Results - last 24 hr 08/03/24 08/03/24 08/03/24 04:10 12:46 14:12 WBC 6.2 RBC 4.63 Hgb 14.0 Hct 44.1 MCV 95.2 MCH 30.3 MCHC 31.9 RDW 14.8 Plt Count 197 ABG Sample Site Left radial Right radial ABG pH 7.19 L* 7.28 L* ABG pCO2 98.7 H* 95.7 H* ABG pO2 87 53 L ABG HCO3 38 H 45 H ABG Total CO2 38 H 45 H ABG O2 Saturation 93 L 79 L* ABG Base Excess 4.8 H 11.7 H Anjum Test Positive Positive Respiration Rate 16 O2 Delivery Device nrb Bipap Mode of Support Bi-level ventilation FiO2 % 80.0 % 40 % Sodium 135 L Potassium 5.0 Chloride 97 L Carbon Dioxide 37 H BUN 26 H Creatinine 0.76 Estimated GFR > 60 BUN/Creatinine Ratio 34.2 H Glucose 137 H Calcium 8.4 08/03/24 14:18 WBC RBC Hgb Hct MCV MCH MCHC RDW Plt Count ABG Sample Site Left radial ABG pH 7.25 L* ABG pCO2 97.2 H* ABG pO2 57 L ABG HCO3 42 H ABG Total CO2 42 H ABG O2 Saturation 81 L* ABG Base Excess 9.2 H Anjum Test Positive Respiration Rate O2 Delivery Device Mode of Support FiO2 % Sodium Potassium Chloride Carbon Dioxide BUN Creatinine Estimated GFR BUN/Creatinine Ratio Glucose Calcium Assessment & Plan Assessment & Plan narrative: 64 year old male admitted to ICU with: AMS acute respiratory failure FRENCH/OHV strep bacteremia CHF substance abuse Suggest1 -Neurochecks/seizure precautions -avoid opiods/benzos -consider CT head -goal rass -1 -SAT/SBT daily -lung protective ventilation -adjust vent prn -keep sat 88-92% -nebs/steroids -keep map above 65 -check serial ekg/trop -check echo, would suggest ALEXA -broad spec ABX/cultures -diuretics as needed, keep -ve balance -monitor ins/outs -replace lytes prn -keep glucose 140-180s -npo -gi/dvt ppx -please call eICU prn total ccm time 45 mins Time-Based Coding :: [TOTAL MINUTES] spent with patient and on the chart (including review of chart, obtaining history, exam, reviewing outside data, placing orders, documenting exam and treatment plan, and counseling patient) on [DATE].
--- NOTE | 2024-08-03 15:31 | RT ---
Pt given Ativan after being agitated, shortly after required 15L NRB to maintain SpO2 over 93%, this RT called to collect and ABG, after collection Pt placed on BiPAP at 12:56 due to results. 20/02 with 40% FiO2.
[2024-08-03] MEDS: fentaNYL 1,000 MCG in DEXTROSE 5% IN WATER 230 ML 28.298 MCG IV (15:35)
--- NOTE | 2024-08-03 15:40 | PM.PROC.1 ---
Procedures Date/Time Date of procedure: 08/03/24 Time of procedure: 15:23 Intubation Time out performed: Yes Sedative: other (Propofol) Mg given: 300 Paralytic: succinylcholine Mg given: 120 Laryngoscope: other (Glidescope hyperangulated blade size 4) ET tube size: 8 ET tube uncuffed: No Tube secured depth (cm): 24 Tube secured location: lips Tube placement confirmation: visualized tube passing through cords, equal breath sounds bilaterally, no breath sounds over epigastrium and confirmation by capnometry Patient tolerated procedure: well Intubation complications: hypotension Additional comments: Request for ETT placement by hospitalist d/t respiratory failure and acidosis despite bipap. Pt appeared lethargic. Discussed need for ETT with patient and he verbalized understanding of plan. Atraumatic ETT placement with grade 1 view on glidescope. Hypotension following induction with SBPs initially in the 60's, responded well to 300mcg phenylephrine IV with return of SBP to the 100s. RT managing ventilation settings. -AB, HAND STONE POLISHER
--- NOTE | 2024-08-03 15:45 | DI.RAD.S_ITS ---
PROCEDURE: XR CHEST 1V INDICATIONS: verify ET tube and OG tube TECHNIQUE: One view of the chest was acquired. COMPARISON: [facility], CR, XR CHEST 1V, 07/31/2024, 13:04. FINDINGS: Surgical changes and devices: Distal tip of nasogastric tube is not included within the field of view. Endotracheal tube is present with distal tip approximately 1.9 cm superior to the neo. Lungs and pleura: Near complete opacification of the left hemithorax with coarsening in the right base. Mediastinum: Mediastinal contours appear normal. Heart size is enlarged. Bones and chest wall: No suspicious bony lesions. Overlying soft tissues appear unremarkable. IMPRESSION: Left hemithorax opacification likely related to opacity such as pneumonia and/or effusion. Support lines as above with distal tip of nasogastric tube not visualized. Coarsening of the right base possibly related to dependent change versus developing pneumonia. Dictated by: Blanca Barnhart M.D. on 08/03/2024 at 16:21 Approved by: Blanca Barnhart M.D. on 08/03/2024 at 16:22
--- NOTE | 2024-08-03 16:33 | P.ICUMDRN_ITS ---
- :: This patient was seen via real time interactive two-way audiovisual telecommunication. Note: Pt on mechanical vent , PRVC 20/500/5/40%, sedated with propofol and fentanyl, ET tube to be pulled 1 cm out, pending ABG, hospitalist working on transfer to higher level of care / ALEXA. Rounded with ICU nursing staffing coordinator and MD/ hospitalist.
--- NOTE | 2024-08-03 17:04 | DI.RAD.S_ITS ---
PROCEDURE: XR CHEST FOR PICC 1V INDICATIONS: line placement TECHNIQUE: One view of the chest was acquired. COMPARISON: [facility], CR, XR CHEST 1V, 08/03/2024, 15:42. [facility], CR, XR CHEST 1V, 07/31/2024, 13:04. FINDINGS: Patient is rotated to the left. Surgical changes and devices: -Endotracheal tube in the lower trachea. -Enteric tube coursing into the stomach. -Right-sided PICC with the catheter tip projecting at the middle 3rd of the SVC, new. Lungs and pleura: Suspect pulmonary vasculature engorgement. Moderate left-sided pleural effusion. No pneumothorax is seen. Mediastinum: Mediastinal contours appear normal. Heart size is normal. Bones and chest wall: No suspicious bony lesions. Overlying soft tissues appear unremarkable. IMPRESSION: Right-sided PICC line with the catheter tip projecting at the middle 3rd of the SVC. Expected position. Moderate left-sided pleural effusion. Pulmonary vasculature engorgement or fluid overload/CHF. When clinically feasible, recommend CXR with improved positioning. Dictated by: Sergio Castro M.D. on 08/03/2024 at 17:42 Approved by: Sergio Castro M.D. on 08/03/2024 at 17:45
[2024-08-03] MEDS: propofoL 1,000 MG/100 ML VIAL 43.659 MG IV ×4 (17:49→22:46)
--- NOTE | 2024-08-03 18:02 | PC.NURSE ---
Anesthesia called to the bedside by Dr. Griffin for intubation of patient. RT, primary RN, Anesthesia, and LARGE ENGINE ASSEMBLER at bedside. 1522 Bipap off, anesthesia gave 300 propofol through R AC IV and 1523 120 succinate R AC IV (see anesthesia records for anesthesia med administration). 1523 HIP HOP DANCER placed ET tube with positive color change and states placement is 24 at the lip. Placed on ventilator and set up per RT. HIP HOP DANCER verified bilateral lung sounds. 1526 Low BP of 65/38 noted, with oxygen saturations 90%-100%. 1527 Phenylephrine 200mcg and 100mcg IV to R AC given by anesthesia, BP responded and up to 95/50. Propofol gtt started per orders and titrated to CHIO of -[address] Griffin placed OG tube with gastric fluid noted and connected to low intermittent wall suction. Patient had copious thin clear oral secretions, oral suctioning with yankuer provided. Patient's ex- Shanell came to bedside and was updated on patient's status and plan of care. She reports patient's sister is Lori De Los Santos and lives in [facility] [phone] and is his closest family. Limited view ECHO completed. DI nurse to bedside to place PICC line, patient tolerated well. Continue with plan of care, anticipate transfer to another hospital for further testing not offered here, as arranged by .
--- NOTE | 2024-08-03 18:18 | P.PN_ITS ---
Subjective Subjective Interval history: From my earlier event coverage note: 64 M admitted with strep bacteremia and acute possibly on chronic hypercapnic respiratory failure. This morning he was awake and alert, but intermittently confused. In review of outside records he has previous admission to [facility] in 2022, presumably for OHS vs diastolic HF at that time. He was ? discharged with home AVAPS per discharge summary? His PCP discontinued his diuretic a few months ago, which the patient did state was accurate this morning. This afternoon he was agitated, with an abrupt change in mentation, he got 2 mg of ativan for agitation, blood gas checked at that time which showed resp. acidosis with PCO2 of 98, 7.19 pH. Placed on bipap, he has had persistent difficulties with the tolerance of his mask, no improvement in blood gas, called anesthesia for intubation. I discussed with supervisor metal furniture assembly today regarding the abnormal echo (with thickened echogenic structure in the right atria (poss. thrombus vs other etiology) regarding need for ALEXA to look for thrombus or closer look. Discussed with Infectious disease and his group C strep is not typically associated with endocarditis. Initially supervisor metal furniture assembly recommended limited TTE with subcostal views and definity for further clarification which was performed just prior to need for intubation. Discussed briefly with tele-custom decorating consultant prior to intubation as well but will attempt to look for transfer at this time for higher level of care with need for cardiology, infectious disease, and custom decorating consultant services. Exam Vital Signs (past 8 hours): - 08/03/24 11:00 08/03/24 12:00 08/03/24 12:00 Temperature 97.9 F 97.7 F Pulse Rate 81 84 Respiratory Rate 18 22 Blood Pressure 155/72 H 163/81 H Pulse Oximetry 92 95 Oxygen Delivery Method 08/03/24 12:30 08/03/24 12:49 08/03/24 12:49 Temperature 98.1 F 98.1 F Pulse Rate 87 89 Respiratory Rate 33 H 37 H Blood Pressure 162/77 H Pulse Oximetry 98 88 L Oxygen Delivery Method 08/03/24 13:00 08/03/24 13:04 08/03/24 13:04 Temperature 98.1 F 98.1 F Pulse Rate 81 81 Respiratory Rate 32 H 27 H Blood Pressure 163/79 H Pulse Oximetry 93 93 Oxygen Delivery Method 08/03/24 13:30 08/03/24 14:00 08/03/24 14:00 Temperature 98.1 F 98.1 F Pulse Rate 78 80 Respiratory Rate 20 28 H Blood Pressure 154/80 H Pulse Oximetry 93 91 Oxygen Delivery Method 08/03/24 14:30 08/03/24 15:00 08/03/24 15:00 Temperature 98.2 F 98.4 F Pulse Rate 78 76 Respiratory Rate 26 H 20 Blood Pressure 156/75 H Pulse Oximetry 99 97 Oxygen Delivery Method 08/03/24 15:15 08/03/24 15:15 08/03/24 15:20 Temperature 98.4 F 98.4 F Pulse Rate 75 74 Respiratory Rate 21 22 Blood Pressure 160/82 H Pulse Oximetry 94 95 Oxygen Delivery Method 08/03/24 15:20 08/03/24 15:26 08/03/24 15:26 Temperature 98.4 F Pulse Rate 81 Respiratory Rate 13 Blood Pressure 162/81 H 65/38 L Pulse Oximetry 87 L Oxygen Delivery Method 08/03/24 15:28 08/03/24 15:28 08/03/24 15:30 Temperature 98.6 F 98.6 F Pulse Rate 79 75 Respiratory Rate 8 L 9 L Blood Pressure 95/50 L Pulse Oximetry 100 100 Oxygen Delivery Method 08/03/24 15:32 08/03/24 15:32 08/03/24 15:32 Temperature 98.6 F Pulse Rate 75 Respiratory Rate 19 Blood Pressure 101/56 L Pulse Oximetry 100 Oxygen Delivery Method Mechanical Ventilation 08/03/24 15:34 08/03/24 15:34 08/03/24 15:37 Temperature 98.6 F 98.6 F Pulse Rate 74 73 Respiratory Rate 20 25 H Blood Pressure 99/71 Pulse Oximetry 99 96 Oxygen Delivery Method 08/03/24 15:37 08/03/24 15:38 08/03/24 15:38 Temperature 98.6 F Pulse Rate 74 Respiratory Rate 19 Blood Pressure 121/60 117/64 Pulse Oximetry 95 Oxygen Delivery Method 08/03/24 15:41 08/03/24 15:41 08/03/24 15:42 Temperature 98.6 F 98.6 F Pulse Rate 77 78 Respiratory Rate 20 21 Blood Pressure 121/70 Pulse Oximetry 88 L 87 L Oxygen Delivery Method 08/03/24 15:42 08/03/24 15:44 08/03/24 15:44 Temperature 98.6 F Pulse Rate 78 Respiratory Rate 17 Blood Pressure 118/70 126/69 Pulse Oximetry 91 Oxygen Delivery Method 08/03/24 16:00 Temperature Pulse Rate Respiratory Rate Blood Pressure Pulse Oximetry Oxygen Delivery Method Mechanical Ventilation Fraction of Inspired Oxygen 40 Oxygen Delivery Method Mechanical Ventilation Oxygen Flow Rate 10 Narrative Exam Narrative: Gen: Intubated, sedated, obese male CV: RRR no m/r/g Pulm: diminished breath sounds entire L lung Abd: S ND Ext: R LE with chronic venous stasis changes, mild ulcerations, well dressed without surrounding erythema or purulence. bilateral non-pitting edema Objective Labs 08/03/24 04:10 08/03/24 04:10 Labs: Laboratory Results - last 24 hr 08/03/24 08/03/24 08/03/24 04:10 12:46 14:12 WBC 6.2 RBC 4.63 Hgb 14.0 Hct 44.1 MCV 95.2 MCH 30.3 MCHC 31.9 RDW 14.8 Plt Count 197 ABG Sample Site Left radial Right radial ABG pH 7.19 L* 7.28 L* ABG pCO2 98.7 H* 95.7 H* ABG pO2 87 53 L ABG HCO3 38 H 45 H ABG Total CO2 38 H 45 H ABG O2 Saturation 93 L 79 L* ABG Base Excess 4.8 H 11.7 H Anjum Test Positive Positive Respiration Rate 16 O2 Delivery Device nrb Bipap Mode of Support Bi-level ventilation FiO2 % 80.0 % 40 % Sodium 135 L Potassium 5.0 Chloride 97 L Carbon Dioxide 37 H BUN 26 H Creatinine 0.76 Estimated GFR > 60 BUN/Creatinine Ratio 34.2 H Glucose 137 H Calcium 8.4 08/03/24 14:18 WBC RBC Hgb Hct MCV MCH MCHC RDW Plt Count ABG Sample Site Left radial ABG pH 7.25 L* ABG pCO2 97.2 H* ABG pO2 57 L ABG HCO3 42 H ABG Total CO2 42 H ABG O2 Saturation 81 L* ABG Base Excess 9.2 H Anjum Test Positive Respiration Rate O2 Delivery Device Mode of Support FiO2 % Sodium Potassium Chloride Carbon Dioxide BUN Creatinine Estimated GFR BUN/Creatinine Ratio Glucose Calcium PFSH Medical History Hx of open fracture Social History Smoking Status: Current some day smoker Assessment & Plan Assessment & Plan narrative: 1. Sepsis with acute metabolic encephaloapthy, acute hypoxemic and acute on chronic hypercapnic respiratory failure secondary to group C strep bacteremia - See blood cultures below. Blood cultures from 07/31 were 4/4 positive for this Group C strep. Repeat blood cultures on 08/02 were negative. Presumed source on admission was the patient's R leg wounds, however his echocardiogram has an anomoly in the right atrium (See below). CTA chest was done on admit without obvious finding. Cardiology here recommended transfer for ALEXA, also will benefit from custom decorating consultant and infectious disease consultations not available here. His leg wounds and admission cellulitis have improved since admission with antibiotic therapies. - Was started initially on vancomycin and ceftriaxone, which has continued since admission on 07/31. Given lack of improvement in his hypoxia and positive MRSA in the nares vancomycin was left on with the Group C strep. Continues on 2g of ceftriaxone IV daily at this time in addition to vancomycin dosed per pharmacy. Discussed with infectious disease over the phone, regarding the ALEXA they would defer to cardiology as typically group C strep is not usually associated with endocarditis and his cultures cleared quickly. ID provider recommended at least 2 weeks of antibiotics at this time. Defer final to accepting hospital infectious disease consultation based on ALEXA, and other findings. - CTA negative for PE on admission, no consolidation or intra-atrial findings that are noted on that study. - 08/03/24 - Acute decompenstation with increase in agitation and then legargy, ABG with hypercapnea. Required intubation at 3:30 PM given lack of response to attempted bipap therapy with persistent PCO2 >90 and continued encephalopathy. - repeat CXR done after intubation with diffuse left lung opacity, unclear if fluid or consolidation or a mix. He has been being diuresed, with 4L output on 08/03 during the day with furosemide and acetazolemide. Also possible this represents an aspiration event. Less likely septic emboli. Sputum cultures ordered, but not obtained thus far. - Accepted by custom decorating consultant at [facility] after supervisor metal furniture assembly agreeable with need for ALEXA. Blood culture from 07/31: 4/4 positive. Repeat on 08/02 without growth. Strep dysgalac (strep equism) M.I.C. RX --------- --- * Ampicillin <=0.25 S * Cefotaxime <=0.12 S * Levofloxacin <=0.25 S * Penicillin <=0.06 S TTE: There is a linear echogenic structure seen in the right atrium that does not move with the cardiac cycle. It is not oscillating and less likely consistent with endocarditis. The structure may be originating near the IVC however it does not appear like a typical eustachian valve nor the more rare entity of cor triatriatum sawyer. Suspect that this is most likely an extracardiac structure versus artifact. ALEXA and/or CT chest may help clarify. 2. Obesity hypoventilation - patient was previously admitted to [facility] in 2022, from limited review he was there with obesity hypoventilation and diastolic heart failure. Unclear at this time if he was using AVAPS as was recommended on that discharge. PCP had also discontinued diuretic about 4 months ago. 3. L pleural effusion vs dense consolidation - possible aspiration vs fluid overload - continue antibiotics as above - sputum cultures ordered - less likely septic emboli given blood cultures have cleared. 4. Methamphetamine dependence - uses daily prior to admission 5. Acute on chronic diastolic heart failure - patient has been diuresed over the course of his stay. 4L negative on 08/03 after 40 mg of IV furosemide and acetazolemide. CO2 37 on labs this AM, Cr stable at 0.76 today. Code: Full, patient has an ex- visiting him in the hospital. Patient's closest family is Lori De Los Santos and lives in [facility] [phone]. I spent 100 minutes providing critical care management this patient. This excludes time spent in performing separately billed procedures. Time-Based Coding :: [TOTAL MINUTES] spent with patient and on the chart (including review of chart, obtaining history, exam, reviewing outside data, placing orders, documenting exam and treatment plan, and counseling patient) on [DATE].
--- NOTE | 2024-08-03 18:37 | PC.NURSE ---
1800 soft wrist restraints placed to patient for patient safety after getting restless and attempting to pull at lines. Dr. Griffin notified and saw patient, order placed. Continue to monitor.
--- NOTE | 2024-08-03 19:24 | P.DS_ITS ---
History of Present Illness History of Present Illness Date Patient Seen: 08/03/24 Time Patient Seen: 19:26 Chief complaint: Weakness, URI symps Narrative: 63-year-old male with hypertension, reported history of congestive heart failure, methamphetamine dependence, tobacco dependence, class 3 obesity and a chronic umbilical hernia who presented to the emergency department today via EMS with complaints of fever and weakness. Evidently, when EMS arrived to his trailer, he had O2 sats in the 70s in room air. They were unable to get a significant history on him. In the emergency department, he told the physician he was in [place] and he thought it was April. On initial arrival in the emergency department temp was 99.1?, heart rate 124, respiratory rate 30, BP 212/102, O2 sats 92% on 6 L over the time he spent in the emergency department, he developed a max temperature of 103.3?. His O2 need went up to 8 L. his white blood cell count was 11.8. BNP was 536. Procalcitonin was 0.67. UA revealed 1+ occult blood, 2+ protein. Nasal MRSA screen was positive. Urine was positive for amphetamines and methamphetamines. Respiratory viral panel was negative. Chest x-ray revealed cardiomegaly. CT pulmonary angiogram revealed no concerning findings for large central PE. Eval for distal pulmonary arteries was limited due to poor contrast opacification. Dilated main pulmonary artery suggesting pulmonary hypertension. No focal pulmonary consolidation was noted. Linear atelectasis versus scarring at lung bases was noted. There was also a left upper lobe perifissural nodule measuring 6 mm, felt likely to be an intrapulmonary lymph node. Blood cultures were drawn and pending at this time. An ABG was performed with a pH of 7.24, pCO2 of 83.5, PO2 51, bicarb 36, O2 sat 77%. In the ED, he received ceftriaxone 2 g, vancomycin 2 g, hydralazine 10 mg, Tylenol 1 g, furosemide 40 mg IV, Toradol 15 mg IV. On arrival to the floor, patient remained rather confused. I was able to arouse him enough to answer few questions. He told me symptoms started several days ago. He stated he did have some diarrhea and felt sick ?all over?. He did admit to a cough, but not other symptoms. He notes his legs are at their baseline in terms of pain and swelling. He reports he typically smokes methamphetamines daily and spends about 20 dollars a day on his use. He denies any history of IV drug use in the past 20 years or so. He denies any other recreational drug use. Discharge Providers Provider Date of admission: 07/31/24 15:54 Discharge Date: 08/03/24 Primary care physician: Doctor Cheikh MD Consults: 07/31/24 12:50 Consult to POWER PLANT OPERATIONS MANAGER - Digital Operations Analyst Stat Comment: Digital Operations Analyst Consult needed for:: Unable to care for self 08/01/24 20:29 Consult to Dietitian, Adult Routine Comment: Reason For Exam: Poor dietary intake d/t medical condition 08/02/24 10:50 Consult to Occupational Therapy Evaluate & Treat Comment: Physician Instructions: Evaluate and treat Consult to Physical Therapy Evaluate & Treat Comment: Physician Instructions: Evaluate and Treat Discharge provider: Raj Griffin DO Summary Hospital Course Discharge Diagnosis: Please see hospital course by problem list noted below Hospital Course: 1. Sepsis with acute metabolic encephaloapthy, acute hypoxemic and acute on chronic hypercapnic respiratory failure secondary to group C strep bacteremia presumably due to R leg venous ulcerations and cellulitis. Acute decompensation from likely aspiration pneumonia. - See blood cultures below. Blood cultures from 07/31 were 4/4 positive for this Group C strep. Repeat blood cultures on 08/02 were negative. Presumed source on admission was the patient's R leg wounds, however his echocardiogram has an anomoly in the right atrium (See below). EF was noted with no signficant valvular abnormalities. CTA chest was done on admit without obvious finding. Cardiology here recommended transfer for ALEXA, also will benefit from glass cut off supervisor and infectious disease consultations not available here. His leg wounds and admission cellulitis have improved in appearance since admission with antibiotic therapies. - Was started initially on vancomycin and ceftriaxone, which has continued since admission on 07/31. Given lack of improvement in his hypoxia and positive MRSA in the nares vancomycin was left on with the Group C strep. Continues on 2g of ceftriaxone IV daily at this time in addition to vancomycin dosed per pharmacy. Discussed with infectious disease over the phone, regarding the ALEXA they would defer to cardiology as typically group C strep is not usually associated with endocarditis and his cultures cleared quickly. ID provider recommended at least 2 weeks of antibiotics at this time. Defer final to accepting hospital infectious disease consultation based on ALEXA, and other findings. - CTA negative for PE on admission, no consolidation or intra-atrial findings that are noted on that study. - 08/03/24 - Acute decompenstation with increase in agitation and then legargy, ABG with hypercapnea. Required intubation at 3:30 PM given lack of response to attempted bipap therapy with persistent PCO2 >90 and continued encephalopathy. - repeat CXR done after intubation with diffuse left lung opacity, unclear if fluid or consolidation or a mix. He has been being diuresed, with 4L output on 08/03 during the day with furosemide and acetazolemide. Also possible this represents an aspiration event. Less likely septic emboli. Sputum cultures ordered, but not obtained thus far. - Accepted by glass cut off supervisor at [facility] after photo optics technician agreeable with need for ALEXA. Blood culture from 07/31: / positive. Repeat on 08/02 without growth. Strep dysgalac (strep equism) M.I.C. RX --------- --- * Ampicillin <=0.25 S * Cefotaxime <=0.12 S * Levofloxacin <=0.25 S * Penicillin <=0.06 S TTE: There is a linear echogenic structure seen in the right atrium that does not move with the cardiac cycle. It is not oscillating and less likely consistent with endocarditis. The structure may be originating near the IVC however it does not appear like a typical eustachian valve nor the more rare entity of cor triatriatum sawyer. Suspect that this is most likely an extracardiac structure versus artifact. ALEXA and/or CT chest may help clarify. 2. Obesity hypoventilation - patient was previously admitted to [facility] in 2022, from limited review he was there with obesity hypoventilation and diastolic heart failure. Unclear at this time if he was using AVAPS as was recommended on that discharge. PCP had also discontinued diuretic about 4 months ago. 3. L pleural effusion vs dense consolidation - possible aspiration vs fluid overload - continue antibiotics as above - sputum cultures ordered - less likely septic emboli given blood cultures have cleared. 4. Methamphetamine dependence - uses daily prior to admission 5. Acute on chronic diastolic heart failure - patient has been diuresed over the course of his stay. 4L negative on 08/03 after 40 mg of IV furosemide and acetazolemide. CO2 37 on labs this AM, Cr stable at 0.76 today. Code: Full, patient has an ex- visiting him in the hospital. Patient's closest family is Lori De Los Santos and lives in [facility] [phone]. Lines: R AC, PICC line placed 08/03 after intubation in case of need for pressor support. Edwards catheter. Vent settings at this time: TV 500, RR 18, PEEP 5, FiO2 40%. Time Spent with Patient Time spent: Greater than 30 minutes Exam Vital Signs (past 8 hours): - 08/03/24 12:00 08/03/24 12:00 08/03/24 12:30 Temperature 97.7 F 98.1 F Pulse Rate 84 87 Respiratory Rate 22 33 H Blood Pressure 163/81 H Pulse Oximetry 95 98 Oxygen Delivery Method 08/03/24 12:49 08/03/24 12:49 08/03/24 13:00 Temperature 98.1 F 98.1 F Pulse Rate 89 81 Respiratory Rate 37 H 32 H Blood Pressure 162/77 H Pulse Oximetry 88 L 93 Oxygen Delivery Method 08/03/24 13:04 08/03/24 13:04 08/03/24 13:30 Temperature 98.1 F 98.1 F Pulse Rate 81 78 Respiratory Rate 27 H 20 Blood Pressure 163/79 H Pulse Oximetry 93 93 Oxygen Delivery Method 08/03/24 14:00 08/03/24 14:00 08/03/24 14:30 Temperature 98.1 F 98.2 F Pulse Rate 80 78 Respiratory Rate 28 H 26 H Blood Pressure 154/80 H Pulse Oximetry 91 99 Oxygen Delivery Method 08/03/24 15:00 08/03/24 15:00 08/03/24 15:15 Temperature 98.4 F 98.4 F Pulse Rate 76 75 Respiratory Rate 20 21 Blood Pressure 156/75 H Pulse Oximetry 97 94 Oxygen Delivery Method 08/03/24 15:15 08/03/24 15:20 08/03/24 15:20 Temperature 98.4 F Pulse Rate 74 Respiratory Rate 22 Blood Pressure 160/82 H 162/81 H Pulse Oximetry 95 Oxygen Delivery Method 08/03/24 15:26 08/03/24 15:26 08/03/24 15:28 Temperature 98.4 F 98.6 F Pulse Rate 81 79 Respiratory Rate 13 8 L Blood Pressure 65/38 L Pulse Oximetry 87 L 100 Oxygen Delivery Method 08/03/24 15:28 08/03/24 15:30 08/03/24 15:32 Temperature 98.6 F 98.6 F Pulse Rate 75 75 Respiratory Rate 9 L 19 Blood Pressure 95/50 L Pulse Oximetry 100 100 Oxygen Delivery Method 08/03/24 15:32 08/03/24 15:32 08/03/24 15:34 Temperature 98.6 F Pulse Rate 74 Respiratory Rate 20 Blood Pressure 101/56 L Pulse Oximetry 99 Oxygen Delivery Method Mechanical Ventilation 08/03/24 15:34 08/03/24 15:37 08/03/24 15:37 Temperature 98.6 F Pulse Rate 73 Respiratory Rate 25 H Blood Pressure 99/71 121/60 Pulse Oximetry 96 Oxygen Delivery Method 08/03/24 15:38 08/03/24 15:38 08/03/24 15:41 Temperature 98.6 F 98.6 F Pulse Rate 74 77 Respiratory Rate 19 20 Blood Pressure 117/64 Pulse Oximetry 95 88 L Oxygen Delivery Method 08/03/24 15:41 08/03/24 15:42 08/03/24 15:42 Temperature 98.6 F Pulse Rate 78 Respiratory Rate 21 Blood Pressure 121/70 118/70 Pulse Oximetry 87 L Oxygen Delivery Method 08/03/24 15:44 08/03/24 15:44 08/03/24 15:46 Temperature 98.6 F 98.6 F Pulse Rate 78 76 Respiratory Rate 17 21 Blood Pressure 126/69 Pulse Oximetry 91 90 L Oxygen Delivery Method 08/03/24 15:46 08/03/24 15:48 08/03/24 15:48 Temperature 98.6 F Pulse Rate 76 Respiratory Rate 17 Blood Pressure 124/65 121/65 Pulse Oximetry 88 L Oxygen Delivery Method 08/03/24 15:50 08/03/24 15:50 08/03/24 15:52 Temperature 98.6 F 98.6 F Pulse Rate 76 76 Respiratory Rate 21 26 H Blood Pressure 111/63 Pulse Oximetry 89 L 86 L Oxygen Delivery Method 08/03/24 15:52 08/03/24 15:54 08/03/24 15:54 Temperature 98.6 F Pulse Rate 75 Respiratory Rate 21 Blood Pressure 113/61 120/63 Pulse Oximetry 97 Oxygen Delivery Method 08/03/24 15:56 08/03/24 15:56 08/03/24 15:58 Temperature 98.6 F 98.6 F Pulse Rate 75 73 Respiratory Rate 21 20 Blood Pressure 115/63 Pulse Oximetry 97 94 Oxygen Delivery Method 08/03/24 15:58 08/03/24 16:00 08/03/24 16:00 Temperature 98.6 F Pulse Rate 70 Respiratory Rate 20 Blood Pressure 116/60 Pulse Oximetry 95 Oxygen Delivery Method Mechanical Ventilation 08/03/24 16:00 08/03/24 16:04 08/03/24 16:04 Temperature 98.6 F Pulse Rate 68 Respiratory Rate 20 Blood Pressure 117/60 109/57 L Pulse Oximetry 96 Oxygen Delivery Method 08/03/24 16:30 08/03/24 16:50 08/03/24 16:50 Temperature 98.6 F 98.8 F Pulse Rate 66 69 Respiratory Rate 20 23 Blood Pressure 141/76 H Pulse Oximetry 97 97 Oxygen Delivery Method 08/03/24 17:00 08/03/24 17:25 08/03/24 17:25 Temperature 98.8 F 99.0 F Pulse Rate 66 67 Respiratory Rate 20 20 Blood Pressure 126/70 Pulse Oximetry 97 94 Oxygen Delivery Method 08/03/24 17:30 08/03/24 17:30 08/03/24 17:45 Temperature 99.0 F 99.1 F Pulse Rate 64 63 Respiratory Rate 20 20 Blood Pressure 116/62 Pulse Oximetry 97 97 Oxygen Delivery Method 08/03/24 17:45 08/03/24 18:00 08/03/24 18:00 Temperature 99.1 F Pulse Rate 63 Respiratory Rate 20 Blood Pressure 120/64 115/64 Pulse Oximetry 97 Oxygen Delivery Method 08/03/24 18:15 08/03/24 18:30 08/03/24 18:45 Temperature 99.3 F 99.3 F 99.5 F Pulse Rate 65 65 63 Respiratory Rate 20 20 20 Blood Pressure 118/67 115/66 Pulse Oximetry 97 97 97 Oxygen Delivery Method 08/03/24 18:45 Temperature Pulse Rate Respiratory Rate Blood Pressure 120/67 Pulse Oximetry Oxygen Delivery Method Fraction of Inspired Oxygen 40 Oxygen Delivery Method Mechanical Ventilation Oxygen Flow Rate 10 Narrative Exam Narrative: Gen: Intubated, sedated, obese male CV: RRR no m/r/g Pulm: diminished breath sounds entire L lung Abd: S ND Ext: R LE with chronic venous stasis changes, mild ulcerations, well dressed without surrounding erythema or purulence. bilateral non-pitting edema Objective Labs 08/03/24 04:10 08/03/24 04:10 Labs: Laboratory Results - last 24 hr 08/03/24 08/03/24 08/03/24 04:10 12:46 14:12 WBC 6.2 RBC 4.63 Hgb 14.0 Hct 44.1 MCV 95.2 MCH 30.3 MCHC 31.9 RDW 14.8 Plt Count 197 ABG Sample Site Left radial Right radial ABG pH 7.19 L* 7.28 L* ABG pCO2 98.7 H* 95.7 H* ABG pO2 87 53 L ABG HCO3 38 H 45 H ABG Total CO2 38 H 45 H ABG O2 Saturation 93 L 79 L* ABG Base Excess 4.8 H 11.7 H Anjum Test Positive Positive Respiration Rate 16 O2 Delivery Device nrb Bipap Mode of Support Bi-level ventilation FiO2 % 80.0 % 40 % Sodium 135 L Potassium 5.0 Chloride 97 L Carbon Dioxide 37 H BUN 26 H Creatinine 0.76 Estimated GFR > 60 BUN/Creatinine Ratio 34.2 H Glucose 137 H Calcium 8.4 08/03/24 14:18 WBC RBC Hgb Hct MCV MCH MCHC RDW Plt Count ABG Sample Site Left radial ABG pH 7.25 L* ABG pCO2 97.2 H* ABG pO2 57 L ABG HCO3 42 H ABG Total CO2 42 H ABG O2 Saturation 81 L* ABG Base Excess 9.2 H Anjum Test Positive Respiration Rate O2 Delivery Device Mode of Support FiO2 % Sodium Potassium Chloride Carbon Dioxide BUN Creatinine Estimated GFR BUN/Creatinine Ratio Glucose Calcium PFSH Medical History Hx of open fracture Social History Smoking Status: Current some day smoker Discharge Plan Discharge Plan Patient Disposition: [facility] Provider Discharge Comment: See discharge summary Discharge Health Status Multidrug resistant organism: MRSA Precautions: Contact Diet/Activity/Treatments Diet: Nothing by Mouth Diet comment: NPO after intubation 08/03, OG tube in place Activity: intubated/sedated, no restrictions Skin/Wound/Dressing Care Dressing: L leg wounds per nursing protocols Discharge Data Primary Care Provider: Miscellaneous,Doctor
[2024-08-03 21:14] LABS: Allen Test for ABG Passed? Positive; Base Excess ABG 11.2 mmol/L (-2-3); Blood Gas Collection Site Right Radial; Blood Gas Mode Assist Cont Ventilat; Delivery System Adult Ventilator; HCO3 ABG 38 mmol/L (23-27); Oxygen Saturation ABG 87 % (95-100); PCO2 ABG 54.8 mmHg (35-45); PEEP 5; PO2 ABG 52 mmHg (80-100); Respiratory Rate 20; TCO2 ABG 37 mmol/L (23-27); pH ABG 7.44 (7.35-7.45)
[2024-08-03] MEDS: fentaNYL 1,000 MCG in DEXTROSE 5% IN WATER 230 ML 40.425 MCG IV (21:29)
--- NOTE | 2024-08-03 23:22 | PC.NURSE ---
Received patient at change of shift on ventilator, FIO2 40% TV 500 Peep 5 RR 20, FIO2 increased to 60% after ABG done around 2200 per Tele-Filer Repairer order. Patient has been comfortable on propofol 45mcg/kg/min and Fentanyl 1mcg/kg/hr, RASS -2 to-3. SR, VSS, core temp via Edwards catheter 99.9. Vancomycin infused prior to leaving with ALS transport to [place] ICU, report phoned to Danielle HARVEY after patient left at [phone]. Bottle of propofol sent with ALS RN along with 2 bags of patients belongings containing clothes and jewelry.
--- NOTE | 2024-08-04 08:09 | CM.DPNOTE ---
DCP Note WASH TANK TENDER reviewed EMR Per chart, pt transferred to [place] overnight after being intubated. no further CM needs JOEL Villatoro
== END 2024-08-03 23:05 | disposition short-term general hospital (02) | DRG 720 ==
LOC: ED 15:54 → ICU 15:55
PROVIDERS: Hospitalist; Internal Medicine Critical Care Medicine; Admitting Provider Family Medicine; Emergency Provider Emergency Medicine; Referring Provider Emergency Medicine; Visit Provider Family Medicine
DX: A40.8 Other streptococcal sepsis (principal); J96.02 Acute respiratory failure with hypercapnia; G93.41 Metabolic encephalopathy; I50.23 Acute on chronic systolic (congestive) heart failure; J69.0 Pneumonitis due to inhalation of food and vomit; R65.20 Severe sepsis without septic shock; F15.10 Other stimulant abuse, uncomplicated; L03.115 Cellulitis of right lower limb; R45.1 Restlessness and agitation; E66.2 Morbid (severe) obesity with alveolar hypoventilation; I11.0 Hypertensive heart disease with heart failure; R01.1 Cardiac murmur, unspecified; F17.200 Nicotine dependence, unspecified, uncomplicated; Z68.42 Body mass index [BMI] 45.0-49.9, adult; Z22.322 Carrier or suspected carrier of Methicillin resistant Staphylococcus aureus
CPT/HCPCS: 36415; 36569; 36600; 71045; 71275; 80048; 80053; 80202; 80305; 81001; 81003; 82550; 82805; 83605; 83880; 84145; 84484; 85025; 85027; 87040; 87077; 87147; 87154; 87186; 87633; 87797; 93005; 93306; 93307; 94002; 94660; 96365; 96366; 96367; 96368; 96375; 99285; J0131; J0360; J0696; J1171; J1650; J1885; J1940; J2060; J2704; J3010; Q9957; Q9967

== ENCOUNTER 2024-09-21 22:38 | Emergency (ER) | payer OTHER, SELFPAY ==
[2024-07-31 16:06] VITALS: BMI 48.2
[2024-08-03 21:21] VITALS: PULSE 66; RESP 20; O2SAT 99
[2024-09-21 22:44] VITALS: BP 187/99; PULSE 89; RESP 22; TEMP 36.4; O2SAT 93; BMI 48.6
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
--- NOTE | 2024-09-21 23:50 | DI.CT.S_ITS ---
PROCEDURE: CT ABDOMEN PELVIS W CON INDICATIONS: Patient with umbilical hernia, pain diffusely TECHNIQUE: After the administration of intravenous contrast, axial sections acquired from the lung bases to the pubic symphysis. Coronal and sagittal reformats were performed. For radiation dose reduction, the following was used: automated exposure control, adjustment of mA and/or kV according to patient size. COMPARISON: None. FINDINGS: Image quality: Diagnostic. Lower Chest: No significant findings. ABDOMEN: Liver: No solid mass. Gallbladder: No radiopaque gallstones or wall thickening. Biliary ducts: No biliary dilation. Pancreas: No ductal dilation. Spleen: Size is within normal limits. Adrenal Glands: No adrenal nodules. Kidneys and Ureters: No hydronephrosis. No solid mass. No complex renal cystic lesion which requires follow up. Stomach and Bowel: Normal colonic caliber, without significant wall thickening. Normal caliber appendix. Peritoneum: No abnormal intraperitoneal fluid. No free air. Ventral Wall: Large fat containing periumbilical hernia with fascial defect measuring 1.4 cm in SI dimension (4/95). Abdominal Nodes: No retroperitoneal or mesenteric adenopathy by size criteria. Vessels: Aorta and inferior vena cava are normal in size. PELVIS: Pelvic Organs: Unremarkable. Bladder: No bladder wall thickening, accounting for underdistention. Pelvic Nodes: No enlarged lymph nodes. Miscellaneous: No inguinal hernias are seen. Bones: No aggressive osseous abnormality. IMPRESSION: Fat containing periumbilical hernia with fascial defect measuring 1.4 cm in SI dimension. Approved by: Lauren Mancini M.D.,Ph.D. on 09/22/2024 at 1:48
[2024-09-22 00:27] LABS: Add Manual Diff / Slide Review NO; Basophils Absolute Auto 0 /uL (0-100); Basophils Percent Auto 0.4 % (0-2); Eosinophils Absolute Auto 0 /uL (0-450); Eosinophils Percent Auto 0.7 % (2-4); Hematocrit 43.4 % (41-53); Hemoglobin 14.3 g/dL (13.5-17.5); Lymphocytes Absolute Auto 1100 /uL (1100-4500); Lymphocytes Percent Auto 19.3 % (25-40); Mean Corpuscular Hemoglobin 29.8 PG (26-34); Mean Corpuscular Volume 90.4 fL (80-100); Monocytes Absolute Auto 300 /uL (0-900); Neutrophils Absolute Auto 4400 /uL (1500-7000); Neutrophils Percent Auto 74.6 % (50-75); Platelet Count 246 X10^3/uL (150-400); Red Cell Distribution Width 14.8 % (11.6-14.8); White Blood Cell Count 5.9 X10^3/uL (4.5-11.0)
[2024-09-22 00:36] LABS: Alanine Aminotransferase 27 IU/L (<50); Albumin 4.1 g/dL (3.5-5.0); Alkaline Phosphatase 137 U/L (38-126); Aspartate Aminotransferase 30 IU/L (17-59); BUN Creatinine Ratio 27.2 (6-22); Bilirubin Total 0.3 mg/dL (0.2-1.3); Blood Urea Nitrogen 22 mg/dL (9-20); Calcium 9.4 mg/dL (8.4-10.2); Carbon Dioxide 37 mmol/L (22-32); Chloride 97 mmol/L (98-107); Estimated Glomerular Filt Rate > 60 mL/min (>60); Glucose 116 mg/dL (80-110); HEMOLYSIS < 15 (0-50); Lactate (Lactic Acid) 0.7 mmol/L (0.7-2.1); Lipase 41 U/L (23-300); Potassium 4.4 mmol/L (3.4-5.1); Sodium 137 mmol/L (137-145); Total Protein 8.1 g/dL (6.3-8.2)
--- NOTE | 2024-09-22 02:36 | PC.NURSE ---
Patient refuses vitals prior to discharge
== END 2024-09-22 02:37 | disposition home or self-care (01) ==
PROVIDERS: Emergency Provider Student in an Organized Health Care Education/Training Program
DX: Z00.8 Encounter for other general examination (principal); K42.9 Umbilical hernia without obstruction or gangrene; R10.9 Unspecified abdominal pain
CPT/HCPCS: 36415; 74177; 80053; 83605; 83690; 83735; 85025; 99283; 99284; Q9967

== ENCOUNTER 2025-01-22 12:27 | Inpatient (IN) | payer OTHER, SELFPAY ==
[2024-07-31 16:06] VITALS: BMI 48.2
[2024-08-03 21:21] VITALS: PULSE 66; RESP 20; O2SAT 99
[2025-01-22] VITALS (12 sets, daily range): BP systolic 118–179; BP diastolic 48–84; PULSE 68–85; RESP 17–24; TEMP 36–37.2; O2SAT 90–99; BMI 45.3
--- NOTE | 2025-01-22 12:31 | EKG_ITS ---
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
--- NOTE | 2025-01-22 12:31 | DI.RAD.S_ITS ---
PROCEDURE: XR CHEST 1V INDICATIONS: Chest Pain TECHNIQUE: One view of the chest was acquired. COMPARISON: [facility], CR, XR CHEST FOR PICC 1V, 08/03/2024, 17:01. [facility], CR, XR CHEST 1V, 08/03/2024, 15:42. FINDINGS: Surgical changes and devices: None Lungs and pleura: Show mildly increased interstitial markings and pulmonary vascular prominence which is overall unchanged compared to multiple prior exams. No pleural effusions or pneumothorax. Mediastinum: Mediastinal contours appear normal. Heart size is normal. Bones and chest wall: No suspicious bony lesions. Overlying soft tissues appear unremarkable. IMPRESSION: Findings suggestive of mild pulmonary edema, however this may be secondary to technique. Dictated by: Ayala Whitman M.D. on 01/22/2025 at 12:24 Approved by: Ayala Whitman M.D. on 01/22/2025 at 12:27
[2025-01-22 12:50] LABS: Add Manual Diff / Slide Review NO; Hematocrit 44.5 % (41-53); Hemoglobin 15.0 g/dL (13.5-17.5); Lymphocytes Absolute Auto 1600 /uL (1100-4500); Mean Corpuscular HGB Conc 33.7 % (30-36); Mean Corpuscular Hemoglobin 30.9 PG (26-34); Mean Corpuscular Volume 91.8 fL (80-100); Platelet Count 215 X10^3/uL (150-400)
[2025-01-22] MEDS: ASPIRIN 81 MG CHEW TAB 324 MG PO (12:50)
[2025-01-22 12:58] LABS: INR 1.1 (0.9-1.3); Prothrombin Time 12.7 SECONDS (9.4-12.5)
[2025-01-22 13:02] LABS: Alanine Aminotransferase 20 IU/L (<50); Albumin 3.9 g/dL (3.5-5.0); Albumin Globulin Ratio 1.1 (1.0-2.8); Alkaline Phosphatase 134 U/L (38-126); Blood Urea Nitrogen 12 mg/dL (9-20); Calcium 8.7 mg/dL (8.4-10.2); Carbon Dioxide 31 mmol/L (22-32); Chloride 101 mmol/L (98-107); Creatine Kinase 57 U/L (55-170); Estimated Glomerular Filt Rate > 60 mL/min (>60); Globulin 3.7 g/dL (1.7-4.1); Glucose 131 mg/dL (70-99); HEMOLYSIS < 15 (0-50); Lipase 41 U/L (23-300); Magnesium 1.8 mg/dL (1.6-2.3); Potassium 3.9 mmol/L (3.4-5.1); Sodium 138 mmol/L (137-145); Total Protein 7.6 g/dL (6.3-8.2)
[2025-01-22 13:14] LABS: NT-proBNP (BNP-Adult 18+) 251 pg/mL (<125); Troponin I < 0.012 ng/mL (0.01-0.034)
--- NOTE | 2025-01-22 13:24 | DI.US.S_ITS ---
PROCEDURE: US PERIPH VENOUS LOW EXTREM BI INDICATIONS: bilateral lower ext edema/dvt TECHNIQUE: Real-time imaging, as well as color and pulse Doppler interrogation, were performed of the deep veins of both legs from the inguinal ligament to the popliteal fossa, with documentation of the visualized calf veins. COMPARISON: None. FINDINGS: Right: The common femoral, femoral, popliteal, and the visualized calf veins are normally compressible, and free of intraluminal thrombus. Color and pulse Doppler demonstrate normal phasic intravascular flow. There is normal augmentation response to distal compression maneuver. Left: The common femoral, femoral, popliteal, and the visualized calf veins are normally compressible, and free of intraluminal thrombus. Color and pulse Doppler demonstrate normal phasic intravascular flow. There is normal augmentation response to distal compression maneuver. IMPRESSION: No findings of deep venous thrombosis in either lower extremity. Dictated by: Ayala Whitman M.D. on 01/22/2025 at 14:28 Approved by: Ayala Whitman M.D. on 01/22/2025 at 14:30
[2025-01-22 13:34] LABS: Influenza A - CEPHEID Flu A NEGATIVE (NEGATIVE); Influenza B - CEPHEID Flu B NEGATIVE (NEGATIVE)
[2025-01-22 13:37] LABS: PTT Partial Thromboplastin Tim 30 SECONDS (25.1-36.5)
[2025-01-22 13:40] LABS: COVID-19 CEPHEID 4-PLEX PCR Negative (Negative)
[2025-01-22] MEDS: FUROSEMIDE 40 MG/4 ML VIAL IV (13:47)
[2025-01-22] MEDS: MORPHINE 2 MG/ML INJ IV (13:47)
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
--- NOTE | 2025-01-22 17:13 | DI.ECHO.S_ITS ---
[facility] : : [id number] : [place] : : [id number] : : Phone: [phone] Echocardiogram Report + + :Name: KEYA JETER Study Date: 01/23/2025 Height: 74 in : :[facility] ReadingLocation: Weight: 352 lb : : Gender: Male BSA: 2.8 m2 : :: 1960 Age: 64 yrs BP: 132/72 mmHg: :Reason For Study: EDEMA : :Ordering Physician: NIRALI, : :KATHERINE Diallo Performed By: Servando Richardson : :Referring: KATHERINE CAMPOVERDE : + + Interpretation Summary The study quality was technically difficult. There is moderate concentric left ventricular hypertrophy. The ejection fraction is estimated to be 60-65%. Grade II diastolic dysfunction with elevated left atrial pressure. The right ventricle grossly appears normal in size with probable normal systolic function. The right atrium is mild to moderately dilated. Pulmonary artery pressures cannot be estimated because of the lack of a measurable TR jet velocity but the IVC suggests a CVP of around 3 mmHg. The ascending aorta is mildly enlarged. Procedure: A two-dimensional transthoracic echocardiogram with color flow and Doppler was performed. A contrast injection of Definity was performed to improve assessment of LV function. The study quality was technically difficult. Comparison is made with the echocardiogram of 08/03/2024. The patient was in normal sinus rhythm during the exam. Left Ventricle: The left ventricle is normal in size. There is moderate concentric left ventricular hypertrophy. There is no ventricular septal defect visualized. The ejection fraction is estimated to be 60-65%. Grade II diastolic dysfunction with elevated left atrial pressure. Right Ventricle: The right ventricle grossly appears normal in size with probable normal systolic function. Atria: The left atrium is moderately dilated. The right atrium is mild to moderately dilated. There is no Doppler evidence for an interatrial shunt. Mitral Valve: There is mild mitral annular calcification. The mitral valve leaflets appear mildly thickened. The mitral valve leaflets are mildly calcified. There is no mitral regurgitation noted. Aortic Valve: The aortic valve is not well visualized. There is no aortic valve stenosis. No aortic regurgitation is present. Tricuspid Valve: The tricuspid valve is not well visualized. No tricuspid regurgitation. Pulmonary artery pressures cannot be estimated because of the lack of a measurable TR jet velocity but the IVC suggests a CVP of around 3 mmHg. Pulmonic Valve: The pulmonic valve is not well visualized. There is no pulmonic valvular regurgitation. Great Vessels: The aortic root is mildly dilated. The ascending aorta is mildly enlarged. The pulmonary artery branches are not well visualized. The IVC is dilated (diameter is greater than 2.1 cm) yet it collapses greater than 50% with a sniff. This suggests a right atrial pressure of 8 mm Hg. Pericardium/ Pleura There is no pericardial effusion. There is no pleural effusion. MMode/2D Measurements & Calculations LVIDd: 5.1 cm LVOT diam: 2.4 cm LVIDs: 3.4 cm Ao root diam: 4.0 cm FS: 33.2 % asc Aorta Diam: 3.8 cm EPSS: 0.67 cm IVSd: 1.5 cm LVPWd: 1.5 cm LV singleton. diameter/BSA (cm/m^2): 1.8 LV sys. diameter/BSA (cm/m^2): 1.2 LA A2 area: 37.0 cm2 RA long axis: 5.8 cm LA A4 area: 31.9 cm2 RA area: 23.8 cm2 LA length (vol): 7.3 cm RA vol: 83.3 ml LA vol: 137.8 ml RA : 30.1 ml/m2 LA vol index: 49.9 ml/m2 IVC diam: 1.6 cm TAPSE: 3.3 cm Doppler Measurements & Calculations Ao V2 max: 148.2 cm/sec LVOT Max Joby: 110.5 cm/sec Ao V2 mean: 100.6 cm/sec LV V1 max P.9 mmHg Ao max P.8 mmHg LV V1 VTI: 28.7 cm Ao mean P.6 mmHg KAMILAH(I,D): 3.8 cm2 Ao V2 VTI: 32.9 cm KAMILAH(V,D): 3.3 cm2 sev ratio: 0.87 KAMILAH indexed to BSA (cm^2/m^2): 1.4 MV E max joby: 81.7 cm/sec PA V2 max: 97.6 cm/sec MV A max joby: 102.9 cm/sec PA V2 mean: 65.9 cm/sec MV E/A: 0.79 PA mean P.9 mmHg Med Peak E' Joby: 4.9 cm/sec PA pr(Accel): 37.9 mmHg E/E' med: 16.7 Lat Peak E' Joby: 6.7 cm/sec E/E' lat: 12.2 E/e' average: 14.4 MV dec time: 0.26 sec SV(LVOT): 125.2 ml Reading Physician:05:50 PM
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
[2025-01-22] MEDS: HYDROCODONE/ACET 5/325 TABLET 1 TAB PO (19:50)
[2025-01-22] MEDS: ENOXAPARIN 40 MG/0.4 ML SYRINGE SUBCUT (20:44)
[2025-01-22] MEDS: SODIUM CHLORIDE 0.9% FLUSH 10 ML IV (21:32)
[2025-01-22] MEDS: MORPHINE 4 MG/ML INJ IV (23:47)
[2025-01-23] VITALS (7 sets, daily range): BP systolic 116–144; BP diastolic 61–75; PULSE 72–79; RESP 17–21; TEMP 35.9–36.1; O2SAT 90–95
[2025-01-23 05:17] LABS: Add Manual Diff / Slide Review NO; Hematocrit 45.0 % (41-53); Hemoglobin 15.3 g/dL (13.5-17.5); Lymphocytes Absolute Auto 1300 /uL (1100-4500); Mean Corpuscular HGB Conc 33.9 % (30-36); Mean Corpuscular Hemoglobin 30.9 PG (26-34); Mean Corpuscular Volume 91.1 fL (80-100); Platelet Count 216 X10^3/uL (150-400)
[2025-01-23 05:28] LABS: Blood Urea Nitrogen 21 mg/dL (9-20); Calcium 8.7 mg/dL (8.4-10.2); Carbon Dioxide 32 mmol/L (22-32); Chloride 98 mmol/L (98-107); Estimated Glomerular Filt Rate > 60 mL/min (>60); Glucose 117 mg/dL (70-99); HEMOLYSIS 31 (0-50); Potassium 4.2 mmol/L (3.4-5.1); Sodium 138 mmol/L (137-145)
[2025-01-23] MEDS: MORPHINE 4 MG/ML INJ IV ×3 (07:03→22:31)
[2025-01-23] MEDS: SODIUM CHLORIDE 0.9% FLUSH 10 ML IV ×3 (07:04→19:58)
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
--- NOTE | 2025-01-23 08:30 | DI.RAD.S_ITS ---
PROCEDURE: XR KNEE LT 3V INDICATIONS: Knee Pain TECHNIQUE: 3 views of the knee were acquired. COMPARISON: None. FINDINGS: Bones: No fractures or dislocations. No suspicious bony lesions. There is tricompartmental joint space narrowing with exuberant osteophytosis. Subchondral sclerosis in the medial compartment is present. Soft tissues: No joint effusion. No suspicious soft tissue calcifications. IMPRESSION: Severe osteoarthritis without acute abnormality. Dictated by: Ayala Whitman M.D. on 01/23/2025 at 8:12 Approved by: Ayala Whitman M.D. on 01/23/2025 at 8:13
--- NOTE | 2025-01-23 08:30 | DI.RAD.S_ITS ---
PROCEDURE: XR KNEE RT 3V INDICATIONS: Knee pain TECHNIQUE: 3 views of the knee were acquired. COMPARISON: None. FINDINGS: Bones: No fractures or dislocations. No suspicious bony lesions. There is tricompartmental joint space narrowing with prominent osteophytosis and some subchondral sclerosis, overall slightly less than the left. Soft tissues: No joint effusion. No suspicious soft tissue calcifications. IMPRESSION: Severe osteoarthritis without acute abnormality Dictated by: Ayala Whitman M.D. on 01/23/2025 at 8:13 Approved by: Ayala Whitman M.D. on 01/23/2025 at 8:14
[2025-01-23] MEDS: NICOTINE 21 MG PATCH TOP (08:38)
[2025-01-23] MEDS: ENOXAPARIN 40 MG/0.4 ML SYRINGE SUBCUT ×2 (08:38→19:58)
[2025-01-23] MEDS: FUROSEMIDE 40 MG TABLET PO (08:38)
[2025-01-23] MEDS: HYDROCODONE/ACET 5/325 TABLET 1 TAB PO ×2 (09:28→19:57)
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
--- NOTE | 2025-01-23 14:16 | PC.NURSE ---
Day shift: Pt A&Ox4, c/o bilaterally knee pain and requesting a cigarette. Pt educated on smoking policy and offered a nicotine patch per pharmacy OTC protocol. Pain addressed (See MAR). PT up to chair 1-2PA, unsteady gait and difficulty with ambulation and leg movement d/t pain and edema. Pt requesting to go to personal vehicle, pt advised on policy. Pt stating I'll just leave and come back to the ER. Pt provided with options, pt able to contact family to go to his van. Care ongoing.
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
[2025-01-24] VITALS: BP 109/63; PULSE 89; RESP 21; O2SAT 90
[2025-01-24 04:00] VITALS: BP 131/63; PULSE 75; RESP 18; O2SAT 90
[2025-01-24 05:40] LABS: Blood Urea Nitrogen 24 mg/dL (9-20); Calcium 8.6 mg/dL (8.4-10.2); Carbon Dioxide 30 mmol/L (22-32); Chloride 97 mmol/L (98-107); Estimated Glomerular Filt Rate > 60 mL/min (>60); Glucose 115 mg/dL (70-99); HEMOLYSIS < 15 (0-50); Potassium 4.3 mmol/L (3.4-5.1); Sodium 136 mmol/L (137-145)
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
[2025-01-24 08:00] VITALS: BP 130/78; PULSE 70; RESP 19; TEMP 36; O2SAT 92
[2025-01-24] MEDS: NICOTINE 21 MG PATCH TOP (08:29)
[2025-01-24] MEDS: SODIUM CHLORIDE 0.9% FLUSH 10 ML IV ×2 (08:29→22:26)
[2025-01-24] MEDS: FUROSEMIDE 40 MG TABLET PO (08:29)
[2025-01-24] MEDS: ENOXAPARIN 40 MG/0.4 ML SYRINGE SUBCUT ×2 (08:29→22:26)
[2025-01-24] MEDS: MORPHINE 4 MG/ML INJ IV ×3 (11:26→22:25)
[2025-01-24 13:00] VITALS: BP 128/77; PULSE 70; RESP 16; O2SAT 95
--- NOTE | 2025-01-24 13:34 | PT-IP ANOTE ---
PT checks in on pt who is sitting up in the chair. He con't to c/o high leg pain. This is similar to last date and also chronic. Pt states that he cannot stand up or take steps or straighten legs out in the bed, they must be bent, d/t right greater than left knee pain. PT speaks with SW and nsg: pt is not currently able to tolerate skilled PT. He can only tolerate up to chair and sitting at this time. 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 Will d/c acute PT.
[2025-01-24] MEDS: HYDROCODONE/ACET 5/325 TABLET 1 TAB PO (13:40)
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
[2025-01-24] MEDS: FUROSEMIDE 40 MG/4 ML VIAL IV (16:28)
[2025-01-24 17:00] VITALS: BP 104/57; PULSE 69; RESP 15; TEMP 36; O2SAT 96
[2025-01-24 20:02] VITALS: BP 117/50; PULSE 76; RESP 20; TEMP 36.1; O2SAT 91
[2025-01-25] MEDS: MORPHINE 4 MG/ML INJ IV ×4 (02:38→13:55)
[2025-01-25 08:00] VITALS: BP 147/85; PULSE 68; RESP 16; TEMP 36; O2SAT 96
[2025-01-25] MEDS: ENOXAPARIN 40 MG/0.4 ML SYRINGE SUBCUT (08:03)
[2025-01-25] MEDS: HYDROCODONE/ACET 5/325 TABLET 1 TAB PO ×2 (08:04→17:06)
[2025-01-25] MEDS: NICOTINE 21 MG PATCH TOP (08:05)
[2025-01-25] MEDS: SODIUM CHLORIDE 0.9% FLUSH 10 ML IV (08:06)
[2025-01-25] MEDS: FUROSEMIDE 40 MG/4 ML VIAL IV (08:55)
[2025-01-25 12:00] VITALS: BP 147/66; PULSE 74; RESP 22; TEMP 35.9; O2SAT 95
[2025-01-25 13:24] LABS: Hematocrit 43.2 % (41-53); Hemoglobin 14.6 g/dL (13.5-17.5); Mean Corpuscular HGB Conc 33.9 % (30-36); Mean Corpuscular Hemoglobin 30.9 PG (26-34); Mean Corpuscular Volume 91.4 fL (80-100); Platelet Count 214 X10^3/uL (150-400)
[2025-01-25 13:35] LABS: Alanine Aminotransferase 18 IU/L (<50); Albumin 4.0 g/dL (3.5-5.0); Albumin Globulin Ratio 1.1 (1.0-2.8); Alkaline Phosphatase 119 U/L (38-126); Blood Urea Nitrogen 27 mg/dL (9-20); Calcium 8.7 mg/dL (8.4-10.2); Carbon Dioxide 34 mmol/L (22-32); Chloride 96 mmol/L (98-107); Estimated Glomerular Filt Rate > 60 mL/min (>60); Globulin 3.6 g/dL (1.7-4.1); Glucose 125 mg/dL (70-99); HEMOLYSIS < 15 (0-50); Potassium 3.9 mmol/L (3.4-5.1); Sodium 136 mmol/L (137-145); Total Protein 7.6 g/dL (6.3-8.2)
[2025-01-25] MEDS: FUROSEMIDE 80 MG in SODIUM CHLORIDE 0.9% 50 ML 116 MG IV (13:55)
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
--- NOTE | 2025-01-25 15:16 | CM.DPNOTE ---
DCP note VEGETABLE FARMER reviewed EMR per provider later in day, dc pt. pt eager to leave and move RV. plans to return to ED. VEGETABLE FARMER met with pt in room multiple times throughout the day. lengthy DCP conversations. VEGETABLE FARMER stressed that housing cannot be secured from hospital and he can get on housing lists for the intermediate school teacher but in the short term would need to return to RV. pt continues to refuse SNF because he wants to be able to come and go and not stay at SNF. pt in contact with [facility] housing. pt called local housing authorities to attempt to get on lists for housing. VEGETABLE FARMER faxed information/signed consents to [facility] on his behalf. pt reports his plan is to move RV and then come back to ED and flop down on floor like a fish until gets housing. VEGETABLE FARMER informed pt there is no available hotel voucher. VEGETABLE FARMER attempted to educate on realistic housing expectations/the reality that pt may not be readmitted to the floor unless there was an acute care medical need requiring admission. pt reports plans to move RV to [employer]way parking lot and then come back to ED. or he wants to move his RV to this VEGETABLE FARMER's house. this VEGETABLE FARMER politely declined. Pt agreeable to working with [facility] structural steel worker helper. VEGETABLE FARMER updated ED VEGETABLE FARMER on pt's plan to return. VEGETABLE FARMER spoke with [facility] structural steel worker helper on the phone. agreeable to seek pt out in community and offer available assistance. P: pt to dc today back to RV. CM team will continue to follow as needed JOEL Villatoro
== END 2025-01-25 07:35 | disposition home or self-care (01) | DRG 194 ==
LOC: ED 15:11 → AC 15:16
PROVIDERS: Hospitalist; Admitting Provider Family Medicine; Emergency Provider Family Medicine; Referring Provider Family Medicine; Visit Provider Family Medicine
DX: I11.0 Hypertensive heart disease with heart failure (principal); I50.33 Acute on chronic diastolic (congestive) heart failure; F15.90 Other stimulant use, unspecified, uncomplicated; T50.1X6A Underdosing of loop [high-ceiling] diuretics, initial encounter; R73.03 Prediabetes; K42.9 Umbilical hernia without obstruction or gangrene; M79.605 Pain in left leg; M79.604 Pain in right leg; Z59.02 Unsheltered homelessness; Z91.148 Patient's other noncompliance with medication regimen for other reason; Z87.891 Personal history of nicotine dependence
CPT/HCPCS: 36415; 71045; 73562; 80048; 80053; 82550; 83690; 83735; 83880; 84484; 85025; 85027; 85610; 85730; 87637; 93005; 93970; 94760; 96374; 96375; 97161; 99285; C8929; J1650; J1938; J2270; Q9957

== ENCOUNTER 2025-01-26 09:31 | Emergency (ER) | payer OTHER, SELFPAY ==
[2024-08-03 21:21] VITALS: PULSE 66; RESP 20; O2SAT 99
[2025-01-22 17:06] VITALS: BMI 45.3
[2025-01-26] VITALS (10 sets, daily range): BP systolic 114–122; BP diastolic 61–75; PULSE 75–82; RESP 20–22; TEMP 36.9; O2SAT 91–98; BMI 48.7
--- NOTE | 2025-01-26 10:13 | ED.GENADULT ---
HPI - General Adult General Chief complaint: Extremity Problem,Nontraumatic Stated complaint: Weakness Time Seen by Provider: 01/26/25 09:56 History of Present Illness HPI narrative: 64-year-old male who was discharged from the hospital yesterday after being admitted for lower extremity edema and heart failure exacerbation. He returns today reporting that his legs to work. Says that he can not walk. Has lower extremity swelling which is chronic. He is not having chest pain has some dyspnea which is chronic. Has prescriptions from yesterday's discharge that he has not yet picked up. Says that he lives in a van and does not have established primary care. Patient is interested in going to a rehab facility. From yesterday's discharge summary: He was admitted primarily with gross leg edema in context of probable acute on chronic diastolic heart failure. This appeared to mostly relate to his current social constraints and running out of medications. He was diuresed and generally improved. He was asking for help with placement and rehabilitation, but the same time was worried about an RV that he would to move in a short period of time. In addition he noted that his ex- was in the area and helping him to some degree. On the day of discharge, he was interested in discharge so that he could attend to his vehicle, and was not sure if he would be coming back to the hospital or not. In any case, he appeared to be improved and his medications were sent to the pharmacy so that he could resume these in any case. Status at Discharge Cognitive/behavioral status at discharge: oriented Functional status at discharge: independent ambulation Overall status at discharge: patient is back to baseline Related Data Previous Rx's ?Medication ?Instructions ?Recorded hydrocortisone 0.5 % topical cream 1 applic topical TID PRN rash 07/04/23 #28.4 grams fluocinolone 0.025 % topical cream 1 applic topical BID #15 grams 01/25/25 furosemide 40 mg tablet (Lasix) 40 mg PO DAILY #10 tabs 01/25/25 sacubitril 24 mg-valsartan 26 mg 1 tab PO BID #60 tabs 01/25/25 tablet (Entresto) tramadol 50 mg tablet 50 mg PO Q8H PRN pain #15 tabs 01/25/25 Allergies Allergy/AdvReac Type Severity Reaction Status Date / Time No Known Drug Allergies Allergy Verified 01/22/25 17:03 Patient History Medical History Methamphetamine use Hernia, umbilical Fatty liver Prediabetes Hx of open fracture Surgical History H/O facial fracture repair Status post skin flap graft Family History Father Cancer Social History household members: none substance use type: methamphetamine tobacco type: cigarettes Exam Narrative Exam Narrative: Unkempt morbid obese male who appears chronically ill Initial Vital Signs Initial Vital Signs: Vital Signs Temperature 98.4 F 01/26/25 10:04 Pulse Rate 82 01/26/25 10:04 Respiratory Rate 20 01/26/25 10:04 Blood Pressure 122/61 01/26/25 10:04 Pulse Oximetry 92 01/26/25 10:04 Oxygen Delivery Method Nasal Cannula 01/26/25 10:04 Oxygen Flow Rate 3 01/26/25 10:04 Const Other: No acute distress Resp Other: Speaking in full sentences, scattered wheezes. No rales Cardio Other: Regular rhythm and rate without murmur rub or gallop GI Other: Normal bowel sounds, massively obese abdomen, umbilical hernia nontender. Skin Other: Warm and dry. Chronic venous stasis changes in both lower extremities Neuro Other: Alert and oriented with fluent speech moves all 4 extremities Extrem Other: Massively edematous lower extremities, positive pitting. Feet are warm Course Orders Ordered: ED Orders 01/26/25 09:58 EKG-12 Lead Stat 01/26/25 10:14 Consult to Physical Therapy Evaluate & Treat 01/26/25 10:18 Chest [XR chest 1V] Stat 01/26/25 10:26 Consult to SOLAR ENGINEER - Pony Edger Stat 01/26/25 11:11 BNP [NT-proBNP (BNP-Adult 18+)] Stat CBC Auto Diff [Complete Blood Count AUTO DIFF] Stat CMP [Comprehensive Metabolic Panel] Stat MAG [Magnesium] Stat Trop I [Troponin I] Stat Discontinued Medications Acetaminophen (Acetaminophen 325 Mg Tablet) 975 mg PO NOW ONE Stop: 01/26/25 10:15 Last Admin: 01/26/25 10:39 Dose: Not Given Documented By: BT Furosemide (Furosemide 40 Mg Tablet) 40 mg PO NOW ONE Stop: 01/26/25 13:00 Last Admin: 01/26/25 13:11 Dose: 40 mg Documented By: JOSÉ MIGUEL Gabapentin (Gabapentin 300 Mg Capsule) 300 mg PO NOW ONE Stop: 01/26/25 12:58 Last Admin: 01/26/25 13:11 Dose: 300 mg Documented By: JOSÉ MIGUEL Tramadol HCl (Tramadol 50 Mg Tablet) 50 mg PO NOW ONE Stop: 01/26/25 13:00 Last Admin: 01/26/25 13:16 Dose: Not Given Documented By: JOSÉ MIGUEL Tramadol HCl (Tramadol 50 Mg Tablet) 50 mg PO NOW ONE Stop: 01/26/25 13:51 Last Admin: 01/26/25 14:08 Dose: 50 mg Documented By: JOSÉ MIGUEL Vital Signs Vital signs: Vital Signs - 8 hr 01/26/25 10:24 01/26/25 10:30 01/26/25 11:00 Pulse Rate 75 77 75 Respiratory Rate Blood Pressure Pulse Oximetry 98 98 97 Oxygen Delivery Method Oxygen Flow Rate 01/26/25 11:30 01/26/25 12:00 01/26/25 12:30 Pulse Rate 78 81 Respiratory Rate 22 Blood Pressure Pulse Oximetry 97 98 95 Oxygen Delivery Method Nasal Cannula Oxygen Flow Rate 3 01/26/25 12:54 01/26/25 12:57 01/26/25 15:40 Pulse Rate 81 Respiratory Rate 20 20 Blood Pressure 114/75 Pulse Oximetry 94 91 Oxygen Delivery Method Nasal Cannula Nasal Cannula Oxygen Flow Rate 3 3 Medical Decision Making Lab Data Lab results narrative: CBC with diff and CMP are reassuring, proBNP is normal today 01/26/25 11:11 01/26/25 11:11 Labs: Lab Results 01/26/25 Range/Units 11:11 WBC 5.2 (4.5-11.0) X10^3/uL RBC 4.58 (4.5-5.9) X10^6/uL Hgb 14.2 (13.5-17.5) g/dL Hct 42.0 (41-53) % MCV 91.7 (80-100) fL MCH 31.1 (26-34) PG MCHC 33.9 (30-36) % RDW 14.5 (11.6-14.8) % Plt Count 214 (150-400) X10^3/uL Neut % (Auto) 69.6 (50-75) % Lymph % (Auto) 23.8 L (25-40) % [place] % (Auto) 4.5 (3-14) % Eos % (Auto) 1.6 L (2-4) % Baso % (Auto) 0.5 (0-2) % Neut # (Auto) 3700 (0174-4160) /uL Lymph # (Auto) 1200 (7253-2484) /uL [place] # (Auto) 200 (0-900) /uL Eos # (Auto) 100 (0-450) /uL Baso # (Auto) 0 (0-100) /uL Sodium 138 (137-145) mmol/L Potassium 4.5 (3.4-5.1) mmol/L Chloride 98 (98-107) mmol/L Carbon Dioxide 34 H (22-32) mmol/L BUN 28 H (9-20) mg/dL Creatinine 0.79 (0.66-1.25) mg/dL Estimated GFR > 60 (>60) mL/min BUN/Creatinine Ratio 35.4 H (6-22) Glucose 117 H (70-99) mg/dL Calcium 8.6 (8.4-10.2) mg/dL Magnesium 1.9 (1.6-2.3) mg/dL Total Bilirubin 0.4 (0.2-1.3) mg/dL AST 32 (17-59) IU/L ALT 19 (<50) IU/L Alkaline Phosphatase 120 (38-126) U/L Troponin I < 0.012 (0.01-0.034) ng/mL NT-Pro-B Natriuret Pep < 20 (<125) pg/mL Total Protein 7.3 (6.3-8.2) g/dL Albumin 3.8 (3.5-5.0) g/dL Globulin 3.5 (1.7-4.1) g/dL Albumin/Globulin Ratio 1.1 (1.0-2.8) Imaging Data Chest x-ray: My Impression: Chest x-ray shows cardiomegaly, no acute failure Radiologist's Impression: [address] [address] XRay Report Signed Patient: Rudy Simon MR#: [id number] : 1960 Acct:[id number] Age/Sex: 64 / M Date of Service: 01/26/25 Loc: ED Accession Number: [id number] Procedure: XR chest 1V Ordering Provider: Brody Garcia MD PROCEDURE: XR CHEST 1V INDICATIONS: chf TECHNIQUE: One view of the chest was acquired. COMPARISON: [facility], CR, XR CHEST 1V, 01/22/2025, 12:34. FINDINGS: Surgical changes and devices: None. Lungs and pleura: Diffuse interstitial prominence. No pleural effusions or pneumothorax. Mediastinum: Mediastinal contours appear normal. Heart size is enlarged. Bones and chest wall: No suspicious bony lesions. Overlying soft tissues appear unremarkable. IMPRESSION: Cardiomegaly, diffuse interstitial prominence. Dictated by: John Damian M.D. on 01/26/2025 at 11:13 Approved by: John Damian M.D. on 01/26/2025 at 11:13 [facility] Narrative Medical decision making narrative: 64-year-old male discharged from the hospital yesterday after being admitted for acute heart failure. He has chronic lower extremity edema. The patient came in today reporting he was generally weak and felt like he could not walk. Patient was seen by PT and thought appropriate for long term facility. He did not have an acute medical problem requiring acute care hospitalization. I I was planning to continue his outpatient medications and have him placed. The patient elected to leave against medical advice. He was advised he was welcome to return at any point. Patient has medications previously prescribed which I recommended he take. Discharge Plan Departure Patient Disposition: Left Against Medical Advice Clinical Impression: General weakness, Lower extremity edema Activity Restrictions/Additional Instructions: We are discharging him against medical advice. We have offered to assist you with finding placement in a l facility that can meet your means, you have declined. At this point I do not see an indication for hospitalization. If you develop chest pain shortness of breath or other acute symptoms return to emergency department. Medications for home care were prescribed yesterday, pick those up and use them as directed. Prescriptions: No Action hydrocortisone 0.5 % cream 1 applic topical TID PRN (Reason: rash) Qty: 28.4 2RF furosemide [Lasix] 40 mg tablet 40 mg PO DAILY Qty: 10 0RF fluocinolone 0.025 % cream 1 applic topical BID Qty: 15 3RF Entresto 24-26 mg tablet 1 tab PO BID Qty: 60 0RF tramadol 50 mg tablet 50 mg PO Q8H PRN (Reason: pain) Qty: 15 0RF Stand Alone Forms: Patient Portal/API, Against Med. Advice ([place])
--- NOTE | 2025-01-26 10:18 | DI.RAD.S_ITS ---
PROCEDURE: XR CHEST 1V INDICATIONS: chf TECHNIQUE: One view of the chest was acquired. COMPARISON: [facility], CR, XR CHEST 1V, 01/22/2025, 12:34. FINDINGS: Surgical changes and devices: None. Lungs and pleura: Diffuse interstitial prominence. No pleural effusions or pneumothorax. Mediastinum: Mediastinal contours appear normal. Heart size is enlarged. Bones and chest wall: No suspicious bony lesions. Overlying soft tissues appear unremarkable. IMPRESSION: Cardiomegaly, diffuse interstitial prominence. Dictated by: John Damian M.D. on 01/26/2025 at 11:13 Approved by: John Damian M.D. on 01/26/2025 at 11:13
--- NOTE | 2025-01-26 10:30 | EKG_ITS ---
[address] [address] Test Date: 2025-01-26 Pat Name: Rudy Simon Department: Room: Gender: Male Spreader: NOEL : 1960 Requested By: Order Number: [id number] Reading MD: Anjum Elliott Measurements Intervals [place] Rate: 75 P: 42 AL: 210 QRS: 61 QRSD: 110 T: 29 QT: 428 QTc: 477 Interpretive Statements Sinus rhythm with 1st degree AV block Electronically Signed On 01-26-2025 15:10:27 PDT by Anjum Elliott
--- NOTE | 2025-01-26 11:11 | PC.NURSE ---
patient refused tylenol, states i said i was in pain i don't want tylenol, iv x 2 unsuccessful. another RN attempting at this time.
[2025-01-26 11:22] LABS: Add Manual Diff / Slide Review NO; Hematocrit 42.0 % (41-53); Hemoglobin 14.2 g/dL (13.5-17.5); Lymphocytes Absolute Auto 1200 /uL (1100-4500); Mean Corpuscular HGB Conc 33.9 % (30-36); Mean Corpuscular Hemoglobin 31.1 PG (26-34); Mean Corpuscular Volume 91.7 fL (80-100); Platelet Count 214 X10^3/uL (150-400)
[2025-01-26 11:34] LABS: Alanine Aminotransferase 19 IU/L (<50); Albumin 3.8 g/dL (3.5-5.0); Albumin Globulin Ratio 1.1 (1.0-2.8); Alkaline Phosphatase 120 U/L (38-126); Blood Urea Nitrogen 28 mg/dL (9-20); Calcium 8.6 mg/dL (8.4-10.2); Carbon Dioxide 34 mmol/L (22-32); Chloride 98 mmol/L (98-107); Estimated Glomerular Filt Rate > 60 mL/min (>60); Globulin 3.5 g/dL (1.7-4.1); Glucose 117 mg/dL (70-99); HEMOLYSIS 22 (0-50); Magnesium 1.9 mg/dL (1.6-2.3); Potassium 4.5 mmol/L (3.4-5.1); Sodium 138 mmol/L (137-145); Total Protein 7.3 g/dL (6.3-8.2)
[2025-01-26 11:45] LABS: NT-proBNP (BNP-Adult 18+) < 20 pg/mL (<125); Troponin I < 0.012 ng/mL (0.01-0.034)
[2025-01-26] MEDS: FUROSEMIDE 40 MG TABLET PO (13:11)
[2025-01-26] MEDS: GABAPENTIN 300 MG CAPSULE PO (13:11)
--- NOTE | 2025-01-26 13:17 | PC.NURSE ---
patient refused tramadol dose, states it doesn't help.
--- NOTE | 2025-01-26 14:00 | PT.IIE ---
Surgical History (Last Reviewed 01/24/25 @ 07:56 by Anjum Elliott MD) H/O facial fracture repair Status post skin flap graft Medical History (Last Reviewed 01/24/25 @ 07:56 by Anjum Elliott MD) Fatty liver Hernia, umbilical Hx of open fracture Methamphetamine use Prediabetes Physical Therapy Inpatient Evaluation/Re-Eval M1 PT/OT-IP Prior Functional Status Start: 01/26/25 16:44 Freq: Status: Discharge Protocol: Document 01/26/25 14:00 AB (Rec: 01/26/25 17:19 AB [id number]) Medical Review Prior Functional Status Medical History Yes Reviewed Communication able to make needs known Mobility and Gait pt stated that he was modified independent with all mobilities and ambulation using a standard walker but limited with ambulation due to B knees/LE pain Social History Household Members none Living Arrangements RV Number of Floors ( One Floor Floors) Number of Stairs To pt stated that he is not going back to his RV Enter/Railing? Home Environment Standard Height Toilet,Walk in Shower Home Equipment Shower Seat without Backrest,Hand Held Shower,Grab Bars Near Toilet,Grab Bars In Shower Additional Social pt stated that he had a standard walker but not sure if History Comment he still have it in his RV and it might have been stolen M2 PT-IP Current Condition Start: 01/26/25 16:44 Freq: Status: Discharge Protocol: Document 01/26/25 14:00 AB (Rec: 01/26/25 17:19 AB [id number]) Physical Therapy Current Condition Current Condition Evaluation Date 01/26/25 Treatment Diagnosis LE edema; generalized weakness Onset Date 01/26/25 M3 PT-IP Subjective Start: 01/26/25 16:44 Freq: Status: Discharge Protocol: Document 01/26/25 14:00 AB (Rec: 01/26/25 17:19 AB [id number]) Therapy Pain Assessment Pain When Pain Assessed At Rest Pain Present Pain Present Pain Reported Location micheal lower legs Intensity 9 Scale Used Numeric (0 - 10) Pain Behaviors Facial Grimacing,Guarding,Holding Area,Wincing Pain Management Distraction,Modification of Treatment,Re-positioning, Techniques Timing of Activity with Medications M4 PT-IP Mobility and Gait Start: 01/26/25 16:44 Freq: Status: Discharge Protocol: Document 01/26/25 14:00 AB (Rec: 01/26/25 17:19 AB [id number]) PT-Bed Mobility Assessment Supine to Sit Supine to Sit Maximum Assistance,1 Person Assistance,2 Person Assistance,Head of Bed Elevated,Bedrails Sit to Supine Sit to Supine Maximum Assistance,1 Person Assistance,2 Person Assistance PT-Transfer Assessment Sit to and From Stand Sit to and from Maximum Assistance,1 Person Assistance,2 Person Stand Assistance,Use of Upper Extremities Equipment Transfer Assistive Gait Belt,Front Wheeled Walker Device Orthotic/Prosthetic No Devices or Brace: Comments Mobility Comments pt seen in the ED. pt was in the hospital 01/22/25 to . pt d/c'd back to his RV yesterday. pt stated that somebody told him that somebody was breaking in to his RV and that he needed to check on it and decided to go home yesterday but not back in the ED. per EMR, pt wanting to go to SNF and that is why pt came back to the hospital. informed pt regarding SNF and that he needs to do PT for SNF placement. Pt stated that he does not know that and that it was the hospital that recommended SNF to him during last admission. pt stated that he has arthritic knees and has pain all over his body and that he was heavy and does think PT can help him. Asked pt if he does not want to go to SNF then knowing that the needs to do PT. pt stated that he did not say that. Asked pt if he is willing to move with PT and pt agreed. BP: 154/78 O2 sat: 94 with O2 on CA: 86. Obtained PLOF and home set up but stated that he is not going back to his RV. completed supine to sit max A and max cues with HOB elevated. sit to stand max A x1- 2 and max cues. instructed to march in place and only able to complete once max A x 1-2. pt c/o increase BLE pain and sat back on EOB. pt agreed to stand again needing max A x 1-2 and max cues and was able to take side steps towards HOB max A x 1-2 and max cues using FWW for support. pt able to take ~ 3 side stepping. assisted pt back in bed. sit to supine max A x 2 and max cues. positioned pt in bed. call light and table placed within reach. informed case investigator regarding pt's mobility assistance and d/c needs. Gait Assessment Comments Gait Comments only able to take side steps using FWW max A x 1-2 for positioning in bed. PT-Balance Assessment Sitting Balance and Reactions Static Sitting Good Balance Ability Dynamic Sitting Fair Balance Ability Standing Balance and Reactions Static Standing Poor Balance Ability Dynamic Standing Poor Balance Ability Device Used FWW M5 PT-IP Objective Assessments Start: 01/26/25 16:44 Freq: Status: Discharge Protocol: Document 01/26/25 14:00 AB (Rec: 01/26/25 17:19 AB [id number]) Orientation Orientation/Cognition Level of Alertness Alert Orientation Name,Place,Situation Safety Awareness Decreased Safety Awareness Gross Range of Motion Lower Extremity ROM Impairments c/o pain when checked limiting ROM Strength Lower Extremity Strength Assessment Bilaterally Impaired Hip 3-/5 Knee 3+/5 Muscle Tone Muscle Tone WNL Yes M6 PT-IP Treatment Start: 01/26/25 16:44 Freq: Status: Discharge Protocol: Document 01/26/25 14:00 AB (Rec: 01/26/25 17:19 AB [id number]) Physical Therapy Treatment Education Education Provided Safety M7 PT-IP Assessment and Plan Start: 01/26/25 16:44 Freq: Status: Discharge Protocol: Document 01/26/25 14:00 AB (Rec: 01/26/25 17:19 AB [id number]) PT Summary Assessment and Plan Potential Rehabilitation Fair Potential Status of Condition Evolving at Evaluation Summary Impairments Pain,ROM,Strength,Balance,Coordination,Sensation,Tone, Cognition,Bed Mobility,Transfers,Gait,Activity Tolerance Assessment Summary pt is a 64 y/o M who presented back to the ED. pt was just d/c'd home yesterday from the hospital. pt requiring max A x 1-2 for mobility and unable to ambulate at this time. pt will require 24/7 assist and was willing to move with PT during evaluation but needs encouragement and education on importance of mobility. pt tends to direct his own care and limits self affecting level of assistance. pt will need SNF rehab to improve mobility independence but eventually will need terminologist placement needs. Goals Bed Mobility Goal Moderate Assistance Transfer Goal Moderate Assistance,Front Wheeled Walker Gait Goal Moderate Assistance,Front Wheel Walker Gait Distance 25 Other Goals improve bed mobility, transfers, ambulation using FWW ~ 50 ft SBA Days to Meet Goals 10 Frequency of Treatment Frequency Of Once a Day Treatment Treatment Plan Physical Therapy Bed Mobility Training,Transfer Training,Gait Training, Treatment Plan Therapeutic Exercise,Balance Retraining,Post Op Education,Discharge Planning,Hot or Cold Pack, Neuromuscular Re-ed,Coordination Retraining,Manual Therapy Recommendations To Nursing Amount of Assist 2 Person Assist Needed Discharge Recommendations PT Discharge SNF Rehab Recommendations Transportation Needs Wheelchair/Cabulance,Stretcher/Ambulance at Discharge - PT assist 2
[2025-01-26] MEDS: TRAMADOL 50 MG TABLET PO (14:08)
--- NOTE | 2025-01-26 15:41 | PC.NURSE ---
patient reports no change in lower extremities.
--- NOTE | 2025-01-26 16:40 | CM.SWNOTE ---
ED DINING ROOM COORDINATOR Note Patient is 64 y/o male who presents to ED via private vehicle requiring some assistance out of van due to concern for bilateral leg pain. Patient was medically cleared and discharged from acute care after a 3 day stay 01/22/25-01/25/25 due to concern for bilateral leg pain and swelling and CHF. Patient has not seen PCP since Fall 2023, patient sees Dr. Saba at [facility] in [place], Patient has [facility] and Medicaid insurance. Upon patient's recent admission patient did not want to pursue SNF rehab, he stated he was concerned about the whereabouts of his RV. Patient had told DCP that he plans to come to the ED to seek placement. [facility] referral was made for patient yesterday. DINING ROOM COORDINATOR calls Juan Martínez and informs him of patient's presentation to the ED and that patient is currently seeking SNF rehab. Patient presents as upset when he was informed by ED provider that he would not be receiving narcotic medications, patient denies any hx of Methamphetamine use. Per EMR, patient's last documented positive toxicology was in July 2024. Patient asks to speak with ED provider's boss and [facility] administration. The CNO arrives in ED to meet with patient, CNO explains the process and the medications that can be offered by the ED provider, patient indicates agreement and understanding. PT has been ordered this AM, PT evaluates patient this afternoon and recommends SNF rehab and LTC. DINING ROOM COORDINATOR meets with patient and patient presents as fatigued, A/Ox4. Patient endorses that he is interested in SNF rehab and [facility] housing. Patient states that he wanted to go to SNF rehab upon recent d/c but he was concerned about his trailer. Patient has been living in his van, patient reports concern for ability to walk due to leg pain. TESTING AND REGULATING CHIEF in ED reports that patient was able to lift his legs to get into wheelchair. DINING ROOM COORDINATOR endorses that DINING ROOM COORDINATOR will contact local SNFs that take his insurance, patient indicates agreement and understanding. DINING ROOM COORDINATOR calls [facility] rehab- it is reported that they have beds and can review patient. Trina calls back to report that she cannot accommodate patient as he weighs more than 350lbs. DINING ROOM COORDINATOR calls [facility] and Nona reports that she can review patient, DINING ROOM COORDINATOR awaiting PT eval at this time, DINING ROOM COORDINATOR to send clinicals for review. DINING ROOM COORDINATOR assists patient and fills out [facility] DS and LTC Medicaid application for patient and faxes it to [facility]. DINING ROOM COORDINATOR explains to patient that he does not meet medical criteria for admission and he will be boarding in the ED awaiting placement. Patient presents with frustration and states that he cannot stay in this room and needs a tv. Patient requests to d/c. Patient chose to leave AMA. DINING ROOM COORDINATOR calls Juan Martínez [facility] Still Operator regarding patient's disposition. DINING ROOM COORDINATOR informs Nona at [facility] as well. Plan: patient left ED AMA, Pending LTC Medicaid application in place, [facility] Still Operator to f/u with patient. Patient also has pending ABD and HEN housing application with [facility]. AMY CervantesSW
--- NOTE | 2025-01-26 16:58 | PC.NURSE ---
patient stated he doesn't want to sit in this room while waiting for a snf to accept him. patient spoke with the dr about wanting to be admitted upstairs, dr perez discussed the plan is to have rn social work continue to look for placement and at this time unable to admit upstairs, patient said he will just leave and go somewhere else, discussed with patient that other hospitals will be looking at the same places we are and he can stay and get care in the Ed. patient insisted on leaving, patient signed paperwork, AMA.
--- NOTE | 2025-01-26 17:04 | PC.NURSE ---
patient states he has an oxygen tank in his vehicle.
== END 2025-01-26 17:04 | disposition left against medical advice (07) ==
PROVIDERS: Emergency Provider Emergency Medicine
DX: R53.1 Weakness (principal); R60.0 Localized edema; I50.9 Heart failure, unspecified
CPT/HCPCS: 36415; 71045; 80053; 83735; 83880; 84484; 85025; 93005; 97162; 97530; 99285

== ENCOUNTER 2025-01-28 18:53 | Emergency (ER) | payer OTHER, SELFPAY ==
[2024-08-03 21:21] VITALS: PULSE 66; RESP 20; O2SAT 99
[2025-01-22 17:06] VITALS: BMI 45.3
[2025-01-28 19:12] VITALS: BP 166/79; PULSE 72; RESP 17; TEMP 37.1; O2SAT 95; BMI 44.3
--- NOTE | 2025-01-29 02:36 | DI.RAD.S_ITS ---
PROCEDURE: XR CHEST 1V INDICATIONS: Possible long-term placement, TB screening TECHNIQUE: One view of the chest was acquired. COMPARISON: [facility], , XR CHEST 1V, 01/26/2025, 10:12. FINDINGS: Surgical changes and devices: None. Lungs and pleura: Lungs are clear. No pleural effusions or pneumothorax. Mediastinum: Mediastinal contours appear normal. Heart size is normal. Bones and chest wall: No suspicious bony lesions. Overlying soft tissues appear unremarkable. IMPRESSION: No acute cardiopulmonary abnormality is seen. Note: This final report is concordant with the preliminary after-hours interpretation provided by [facility] Approved by: Patel Rush M.D. on 01/29/2025 at 8:32
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
[2025-01-29 03:05] LABS: Add Manual Diff / Slide Review NO; Hematocrit 43.9 % (41-53); Hemoglobin 14.8 g/dL (13.5-17.5); Lymphocytes Absolute Auto 1500 /uL (1100-4500); Mean Corpuscular HGB Conc 33.7 % (30-36); Mean Corpuscular Hemoglobin 30.9 PG (26-34); Mean Corpuscular Volume 91.8 fL (80-100); Platelet Count 215 X10^3/uL (150-400)
[2025-01-29 03:12] VITALS: PULSE 76; O2SAT 91
[2025-01-29 03:13] VITALS: BP 130/60; PULSE 76; RESP 18; O2SAT 91
[2025-01-29 03:15] LABS: Alanine Aminotransferase 26 IU/L (<50); Albumin 3.9 g/dL (3.5-5.0); Albumin Globulin Ratio 1.1 (1.0-2.8); Alkaline Phosphatase 131 U/L (38-126); Blood Urea Nitrogen 14 mg/dL (9-20); Calcium 8.6 mg/dL (8.4-10.2); Carbon Dioxide 29 mmol/L (22-32); Chloride 103 mmol/L (98-107); Estimated Glomerular Filt Rate > 60 mL/min (>60); Globulin 3.5 g/dL (1.7-4.1); Glucose 113 mg/dL (70-99); HEMOLYSIS < 15 (0-50); Potassium 4.2 mmol/L (3.4-5.1); Sodium 139 mmol/L (137-145); Total Protein 7.4 g/dL (6.3-8.2)
[2025-01-29] MEDS: HYDROCODONE/ACET 5/325 TABLET 1 TAB PO ×2 (03:19→07:59)
[2025-01-29 03:21] LABS: Influenza A - CEPHEID Flu A NEGATIVE (NEGATIVE); Influenza B - CEPHEID Flu B NEGATIVE (NEGATIVE)
[2025-01-29 03:27] LABS: COVID-19 CEPHEID 4-PLEX PCR Negative (Negative)
--- NOTE | 2025-01-29 06:07 | PC.NURSE ---
Pt woke up suddenly due to his leg coming off bed on his right side. Called out instead of using call light to have nurse place his leg back on bed due to him not being able to. This nurse placed hands on his leg and placed back on bed. It did not matter where this nurse touched pt had pain everywhere in leg and he states that it is burning. Asked pt if he would like me to place the railing up so that his leg did not fall off again in his sleep to cause him so much pain, pt declined. Reoriented pt to call light on his hospital bed. Pt requesting more pain medications, states that the one he had earlier did not help. Provider notified.
--- NOTE | 2025-01-29 06:47 | PC.NURSE ---
Pt is starting to become verbally aggressive to staff. Yelling in his room. Advised pt that he has medications ordered but declined them at this time. Pt states that we aren't doing what he is telling us to do, and he may just leave here. Advised pt that I will be walking out of the room now due to his aggressive and insulting words.
--- NOTE | 2025-01-29 07:19 | PC.NURSE ---
pt call light on. This tech entered the room to ask the pt what they were needing. pt immediately started screaming and saying how you guys have done nothing for me today just like last time so I want to fucking leave. Clearly you all are retards and don't know how to fucking help people so I am leaving to a place that can actually help me. Instead of staying here with you all cause you are fat and useless and don't seem to care about patients. I stated that I am leaving the room because of the language and aggressive behavior directed towards staff. RN Nichole made aware. pt sitting in the bed with call light within reach with I left the room
[2025-01-29] MEDS: FUROSEMIDE 40 MG TABLET PO (07:57)
--- NOTE | 2025-01-29 08:06 | PC.NURSE ---
Addendum entered by Nurys Wilhelm R.N. 01/29/25 08:20: Pt refused AM vital signs. Physician notified. Original Note: Pt c/o 10/ pain in bilateral LE. RN & DIRECTOR OF GIFT PLANNING assited pt with getting legs into bed. Pt states that he feels like we are not offering adequate pain relief and that his breakfast tray was too sugary. Offered pt ordered pain medication and ordered new breakfast tray of scrambled eggs and hashbrowns. RN provided pt education regarding the use of narcotic pain medication, non-pharmacological pain relief techniques and discussed with physician pt request for a different pain medication. No new orders at this time. Pt a&Ox4 and hydrocodone administered to pt as ordered.
[2025-01-29 09:00] LABS: Appearance Urine UA CLEAR; Bilirubin Urine UA NEGATIVE (NEGATIVE); Color Urine UA YELLOW; Glucose Urine UA NEGATIVE (Negative); Ketones Urine UA NEGATIVE (NEGATIVE); Leukocyte Esterase Urine UA NEGATIVE (NEGATIVE); Nitrite Urine UA NEGATIVE (Negative); Occult Blood Urine UA NEGATIVE (Negative); Protein Urine UA TRACE (Negative); Specific Gravity Urine UA 1.025 (1.000-1.035); Urobilinogen Urine UA 0.2 E.U./dL (0.2); pH Urine UA 6.0 (4.5-8.0)
[2025-01-29 09:01] LABS: NT-proBNP (BNP-Adult 18+) 140 pg/mL (<125)
[2025-01-29 09:10] LABS: Culture Indicated Urine Cult Not Indicated
[2025-01-29] MEDS: MORPHINE IR 15 MG TABLET PO ×3 (09:20→20:40)
[2025-01-29] MEDS: GABAPENTIN 100 MG CAPSULE PO ×3 (09:20→20:40)
--- NOTE | 2025-01-29 10:23 | PC.NURSE ---
Addendum entered by Nurys Wilhelm R.N. 01/29/25 12:39: Coordinator notified of PT consult ordered and PT to ED RN for any further questions. Addendum entered by Nurys Wilhelm R.N. 01/29/25 11:29: 2nd attempt to contact PT for ordered consult via [employer] and at6 [phone]. Left 2nd message. Original Note: Attempted to contact PT via vocera and at [phone]. Left message.
--- NOTE | 2025-01-29 10:29 | PC.NURSE ---
Addendum entered by Nurys Wilhelm R.N. 01/29/25 11:30: Spoke with JACK Devries MSW. Discussed steps to SNF placement. PT consult required. See notes. Original Note: Attempted to reach JACK FLY FRAME TENDER at [phone]. Left message.
--- NOTE | 2025-01-29 11:57 | PC.NURSE ---
Pt given lunch tray from dietary. Declined VS & wrapping legs at this time. States that he is still having moderate 7/10 pain in bilaterally in LE.
--- NOTE | 2025-01-29 12:52 | CM.SWNOTE ---
Addendum entered by JOEL Burdick 01/29/25 15:38: ADD: Per Blaise, decline due to pt's ANGEL hx and recent AMA. Per Marija Short, decline due to meth use hx. JUDAH, LANIECSFloyd, and Jaswinder still reviewing. BF Original Note: Patient is a 64 yo male who was admitted to [facility] ED today 01/29/25 for Knee Pain/ambulation issues. Pt has [facility] HO for insurance and his PCP is not listed. EMR was reviewed. Per ED MD and RN, pt recently admitted to the hospital on 01/22/25 for medical care and declined attempts at SNF and chose to discharge back to his RV with plan to move his RV to more secure location and then return to pursue housing/LTC placement although was notified of process of LTC and given resources and assisted with housing lists and helped to place phone calls. Pt has been admitted to ED twice since his discharge last week and left AMA once and now requesting SNF placement. 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 SW updated ED RN of the barriers to SNF being his [facility] medicaid insurance is a poor reimburser to SNF and his lack of more stable housing/RV situation is a challenge to getting SNF acceptance. SW willing to attempt SNF referrals with pt's information for this current ED visit as well as recent admission. If SNF willing to accept and initiate C auth, then PT aware that updated eval note will be needed. SW made SNF referrals to: Blaise Palacio Plan: SW to follow closely for above SNF reviews to determine if any willing to accept and start insurance auth for SNF. Pt given community resources during admission and referral made to [facility]. JOEL Burdick
--- NOTE | 2025-01-29 13:47 | PT-IP ANOTE ---
PT eval order received. Pt was just evaluated for PT last 01/26/25 and pt left AMA. talked to senior hr manager and informed regarding PT eval 01/26/25. senior hr manager informed PT that she will use PT eval note 01/26/25 to find SNF placement for pt and can hold off on PT eval for today until needed. ED nurse aware.
[2025-01-29 14:49] VITALS: BP 138/78; PULSE 70; RESP 20; O2SAT 94
--- NOTE | 2025-01-29 14:54 | PC.NURSE ---
this nurse wrapped both pt's lower extremities with soft guaze and MODE wrap bilateral leg extremities appeared swollen, and red, with no obvious weeping, or draining
[2025-01-29 20:54] LABS: Blood Urea Nitrogen 17 mg/dL (9-20); Calcium 8.5 mg/dL (8.4-10.2); Carbon Dioxide 35 mmol/L (22-32); Chloride 96 mmol/L (98-107); Estimated Glomerular Filt Rate > 60 mL/min (>60); Glucose 132 mg/dL (70-99); HEMOLYSIS < 15 (0-50); Potassium 4.5 mmol/L (3.4-5.1); Sodium 137 mmol/L (137-145)
--- NOTE | 2025-01-30 01:28 | PC.NURSE ---
Pt given wipes to assist in cleaning self after urination.
[2025-01-30] MEDS: MORPHINE IR 15 MG TABLET PO ×2 (02:43→09:10)
[2025-01-30 02:47] VITALS: BP 131/72; PULSE 70; O2SAT 91
[2025-01-30 02:48] VITALS: BP 131/72; PULSE 73; RESP 24; O2SAT 93
[2025-01-30] MEDS: GABAPENTIN 100 MG CAPSULE PO ×2 (09:11→15:18)
[2025-01-30 09:18] VITALS: PULSE 76; O2SAT 86
[2025-01-30 09:19] VITALS: BP 122/58; PULSE 75; TEMP 37.1; O2SAT 87
--- NOTE | 2025-01-30 10:22 | PC.NURSE ---
pt asked for assistance to the shower, pt made comments during assistance into wheelchair I need to was my pubes., bathroom was set up with floor mats and a shower chair for patient while RN took the pt to his car to grab clean clothing, a different pt needed stat care so the pt was asked to wait outside the restroom for a moment until we could assist him with getting into the bathroom and shower. Pt took himself in the bathroom and shower at an unknown time and independently showered himself and told staff he would call light if any care or assistance was needed.
--- NOTE | 2025-01-30 14:59 | CM.SWNOTE ---
SW attempted following SNFs: [facility]-no [facility]- no [facility]- no [facility]- no [facility]- no [facility]- no Per ED RN, pt has been getting pain meds to manage his painful legs and was able to get up today to shower by himself. Does have chronic pain in his legs which limits his mobility. SW met bedside with pt in ED room 11 and updated on barriers to SNF and no accepting SNF at this time. Pt denies the ANGEL hx and SW explained cannot get SNF to accept at this time or speed up his housing options even if he was admitted to the hospital. Currently no medical reason for admission. Pt confirms that during last admission SW supported him with getting on housing lists and contacting Housing authority and to work with the Community Acquisition Consultant. Pt states his closest family is in [place] and other states and SW inquired about their assist and pt listed barriers to family helping him out. Pt confirms he has been living in his RV for about a year and states reason he cannot go back is urine in the RV. SW discussed if pt addresses some of the barriers to getting acceptance at SNF (better discharge options than his RV, not leaving AMA, more remote hx of ANGEL) then could attempt SNF again if needed in the future. Pt acknowledged understanding and states since SNF not found for him then no point in staying at the hospital and in agreement to discharge. SW updated video photographer, RN, MD and plan is to discharge pt from the ED with possible pain management for better mobility and pt to continue working with housing authority and community greeter guest services. SW made referral to [facility] to determine if they could schedule pt with establish care appointment with provider under his insurance (unsure if CHRIS has completed this at previous admissions). JOEL Burdick
--- NOTE | 2025-01-30 15:27 | PC.NURSE ---
Pt agitated about discharge. Pt informed we were unable to secure a SNF placement. Vitals unable to be obtained and dc paperwork unable to be signed--pt demanding to be wheeled outside [facility]. Pt threatening to david nurses/hospital. Pt informed again on care that was provided and pt willingness to leave AMA/VDC multiple times. Pt wheeled out by Arleen HARVEY and Elsy RODGERS. Pt educated on how to view hospital stay in pt chart.
[2025-01-30 15:29] VITALS: RESP 19
== END 2025-01-30 15:30 | disposition home or self-care (01) ==
PROVIDERS: Emergency Medicine; Emergency Provider Emergency Medicine
DX: R60.0 Localized edema (principal); R53.1 Weakness; G89.29 Other chronic pain; M79.605 Pain in left leg; M79.604 Pain in right leg; Z86.79 Personal history of other diseases of the circulatory system; Z74.8 Other problems related to care provider dependency
CPT/HCPCS: 36415; 71045; 80048; 80053; 81001; 83880; 85025; 87637; 99283; 99284

== ENCOUNTER 2025-02-03 00:53 | Emergency (ER) | payer OTHER, SELFPAY ==
[2024-08-03 21:21] VITALS: PULSE 66; RESP 20; O2SAT 99
[2025-01-22 17:06] VITALS: BMI 45.3
--- NOTE | 2025-02-03 01:34 | PC.NURSE ---
Patient returned to his van prior to triage. When room ready will call pt.
[2025-02-03 03:16] VITALS: BP 141/73; PULSE 78; RESP 20; TEMP 36.8; O2SAT 93; BMI 43.6
--- NOTE | 2025-02-03 03:26 | PC.NURSE ---
legs are red, swollen, scar from previous skin graft noted to left leg, legs are discolored
--- NOTE | 2025-02-03 03:27 | ED_ITS ---
HPI - Extremity Problem General Chief complaint: Extremity Problem,Nontraumatic Stated complaint: No food x24hrs, frequent urination, sob, dizzy Time Seen by Provider: 02/03/25 01:16 Source: patient Mode of arrival: Wheelchair History of Present Illness HPI Narrative: 64-year-old man with a history of left lower extremity compound fracture status post flap plastic surgery coverage chronic lower left extremity skin deformity and edema recently hospitalized for congestive heart failure for which he ended up coming back to the ER again wanting to be admitted to a long term facility but did not qualify and so he has been living in his van started to have multiple bouts of watery diarrhea since 09/06 this a.m. he denies nausea vomiting constipation back pain urinary symptoms. He did report having chills body aches and a nonproductive cough for the past few days no sick contacts. Other than what is stated 14 point review of system is negative. Related Data Previous Rx's ?Medication ?Instructions ?Recorded hydrocortisone 0.5 % topical cream 1 applic topical TI D PRN rash 07/04/23 #28.4 grams fluocinolone 0.025 % topical cream 1 applic topical BI D #15 grams 01/25/25 furosemide 40 mg tablet (Lasix) 40 mg PO DAILY #10 tab s 01/25/25 sacubitril 24 mg-valsartan 26 mg 1 tab PO BID #60 tabs 01/25/25 tablet (Entresto) hydrocodone 5 mg-acetaminophen 325 1 tab PO Q6H PRN pa in #10 tabs 01/30/25 mg tablet Allergies Allergy/AdvReac Type Severity Reaction Status Date / Time No Known Drug Allergies Allergy Verified 01/22/25 17:03 Review of Systems Review of Systems ROS Unobtainable: All systems reviewed & are unremarkable except as noted in HPI and below Patient History Medical History Methamphetamine use Hernia, umbilical Fatty liver Prediabetes Hx of open fracture Surgical History H/O facial fracture repair Status post skin flap graft Family History Father Cancer Social History household members: none substance use type: methamphetamine tobacco type: cigarettes Exam Narrative Exam Narrative: GENERAL: [64] year old patient appears stated age. Well-developed patient, in mild distress. HEAD: Atraumatic. Normocephalic. EYES: Pupils equal round and reactive. Extraocular motions intact. No scleral icterus. No injection or drainage. ENT: Nose without bleeding, purulent drainage. Throat without erythema, tonsillar hypertrophy or exudate. Airway patent. NECK: Trachea midline. Non tender CARDIOVASCULAR: Regular rate and rhythm without murmurs, gallops, or rubs. RESPIRATORY: Clear to auscultation. Breath sounds equal bilaterally. No wheezes, rales, or rhonchi. GASTROINTESTINAL: Abdomen soft, non-tender, nondistended. EXTREMITIES: Chronic bilateral edema to lower extremities, left postoperative flap changes noted but no redness warmth active drainage or bleeding, motor sensory intact, bilateral lower extremity +2 DP +2 PT cap refill less than 2 seconds BACK: Nontender without deformity or crepitance. No flank tenderness. NEURO: AOx3. SKIN: No rash or erythema of visible areas Initial Vital Signs Initial Vital Signs: Vital Signs Temperature 98.2 F 02/03/25 03:16 Pulse Rate 78 02/03/25 03:16 Respiratory Rate 20 02/03/25 03:16 Blood Pressure 141/73 H 02/03/25 03:16 Pulse Oximetry 93 02/03/25 03:16 Oxygen Delivery Method Room Air 02/03/25 03:16 Course Orders Ordered: ED Orders 02/03/25 04:15 Stool Culture Stat Vital Signs Vital signs: Vital Signs - 8 hr 02/03/25 03:16 Temperature 98.2 F Pulse Rate 78 Respiratory Rate 20 Blood Pressure 141/73 H Pulse Oximetry 93 Oxygen Delivery Method Room Air MDM - Extremity (Nontraumatic) MDM Narrative Medical decision making narrative: All lab work, vital signs, nurse triage note, medication list, previous ER visits and all imaging studies reviewed. WBC 4.1 sodium 135 glucose 106. Patient given lactated Ringer's 1 L bolus, tylenol 975mg PO x 1. Differential diagnosis viral syndrome, dehydration, electrolyte derangement. Discharge Plan Departure Patient Disposition: Home Clinical Impression: Diarrhea Qualifiers: Diarrhea type: unspecified type Qualified Code(s): R19.7 - Diarrhea, unspecified Instructions: Diarrhea Activity Restrictions/Additional Instructions: Return with new or worsening symptoms. Keep hydrated. Please get established with PCP for continuity of care locally. Prescriptions: No Action hydrocodone-acetaminophen 5-325 mg tablet 1 tab PO Q6H PRN (Reason: pain) Qty: 10 0RF hydrocortisone 0.5 % cream 1 applic topical TID PRN (Reason: rash) Qty: 28.4 2RF furosemide [Lasix] 40 mg tablet 40 mg PO DAILY Qty: 10 0RF fluocinolone 0.025 % cream 1 applic topical BID Qty: 15 3RF Entresto 24-26 mg tablet 1 tab PO BID Qty: 60 0RF Stand Alone Forms: Patient Portal/API
[2025-02-03] MEDS: LACTATED RINGERS 1,000 ML 1000 ML IV (05:30)
[2025-02-03 05:40] LABS: Add Manual Diff / Slide Review NO; Hematocrit 45.0 % (41-53); Hemoglobin 15.0 g/dL (13.5-17.5); Lymphocytes Absolute Auto 1000 /uL (1100-4500); Mean Corpuscular HGB Conc 33.3 % (30-36); Mean Corpuscular Hemoglobin 30.6 PG (26-34); Mean Corpuscular Volume 91.9 fL (80-100); Platelet Count 214 X10^3/uL (150-400)
[2025-02-03 05:53] LABS: Alanine Aminotransferase 21 IU/L (<50); Albumin 3.9 g/dL (3.5-5.0); Albumin Globulin Ratio 1.1 (1.0-2.8); Alkaline Phosphatase 115 U/L (38-126); Blood Urea Nitrogen 17 mg/dL (9-20); Calcium 8.4 mg/dL (8.4-10.2); Carbon Dioxide 29 mmol/L (22-32); Chloride 99 mmol/L (98-107); Estimated Glomerular Filt Rate > 60 mL/min (>60); Globulin 3.5 g/dL (1.7-4.1); Glucose 106 mg/dL (70-99); HEMOLYSIS < 15 (0-50); Potassium 3.8 mmol/L (3.4-5.1); Sodium 135 mmol/L (137-145); Total Protein 7.4 g/dL (6.3-8.2)
[2025-02-03] MEDS: KETOROLAC 30 MG/ML VIAL 15 MG IV (06:11)
[2025-02-03] MEDS: ACETAMINOPHEN 325 MG TABLET 975 MG PO (06:11)
[2025-02-03] MEDS: CYCLOBENZAPRINE 10 MG TABLET PO (07:07)
--- NOTE | 2025-02-03 07:07 | PC.NURSE ---
Pt declines discharge without pain control. Provider notified.
--- NOTE | 2025-02-03 07:46 | PC.NURSE ---
Pt yelling at staff stating they have not provided him any medical care. RN attempted to reiterate to pt what has been done and steps to take care of self outside of hospital (i.e., followup, pain management methods). Pt threatening nurse and hospital with lawsuits and stating he will harass the people coming into the hospital. Pt continued to escalate; security called to bedside. Security contacted police; 1 community relations police lieutenant at bedside.
[2025-02-03 07:57] VITALS: RESP 16
--- NOTE | 2025-02-03 07:58 | PC.NURSE ---
Belongings sent with pt.
[2025-02-03 09:10] LABS: Clostridium difficile toxin AB Not Detected (Not Detect); Enteroaggregative E.coli Not Detected (Not Detect); Enteropathogenic E.coli Not Detected (Not Detect); Enterotoxigenic E.coli It/st Not Detected (Not Detect); Plesiomonsa shigelloides Not Detected (Not Detect); Shiga-like toxin-prod E.coli Not Detected (Not Detect)
== END 2025-02-03 07:58 | disposition home or self-care (01) ==
PROVIDERS: Emergency Provider Family Medicine
DX: R19.7 Diarrhea, unspecified (principal); R05.9 Cough, unspecified
CPT/HCPCS: 36415; 80053; 85025; 87045; 87177; 87507; 96361; 96374; 99284; J1885

== ENCOUNTER 2025-02-14 23:36 | Emergency (ER) | payer OTHER, SELFPAY ==
[2024-08-03 21:21] VITALS: PULSE 66; RESP 20; O2SAT 99
[2025-01-22 17:06] VITALS: BMI 45.3
[2025-02-14 23:47] VITALS: BP 167/77; PULSE 85; RESP 18; TEMP 35.9; O2SAT 96; BMI 44.1
--- NOTE | 2025-02-15 00:05 | DI.RAD.S_ITS ---
PROCEDURE: XR CHEST 1V INDICATIONS: chest pain TECHNIQUE: One view of the chest was acquired. COMPARISON: [facility], CR, XR CHEST 1V, 01/29/2025, 2:32. [facility], CR, XR CHEST 1V, 01/26/2025, 10:12. FINDINGS: Surgical changes and devices: None. Lungs and pleura: Lungs are clear. No pleural effusions or pneumothorax. Mediastinum: Mediastinal contours appear normal. Heart size is prominent. Bones and chest wall: No suspicious bony lesions. Prior left-sided rib fractures. Overlying soft tissues appear unremarkable. IMPRESSION: No acute cardiopulmonary abnormality is seen. Dictated by: Sergio Castro M.D. on 02/15/2025 at 0:47 Approved by: Sergio Castro M.D. on 02/15/2025 at 0:48
--- NOTE | 2025-02-15 00:05 | EKG_ITS ---
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
--- NOTE | 2025-02-15 00:45 | PC.NURSE ---
Pt removed blood pressure cuff and pulse ox and refuses to keep them on.
[2025-02-15 01:13] LABS: Add Manual Diff / Slide Review NO; Hematocrit 41.0 % (41-53); Hemoglobin 13.9 g/dL (13.5-17.5); Lymphocytes Absolute Auto 1400 /uL (1100-4500); Mean Corpuscular HGB Conc 33.8 % (30-36); Mean Corpuscular Hemoglobin 30.6 PG (26-34); Mean Corpuscular Volume 90.5 fL (80-100); Platelet Count 219 X10^3/uL (150-400)
--- NOTE | 2025-02-15 01:16 | DI.RAD.S_ITS ---
PROCEDURE: XR FOOT LT 2V INDICATIONS: c/o glass in foot TECHNIQUE: 2 views of the foot were acquired. COMPARISON: None. FINDINGS: Bones: No fractures or dislocations. No suspicious bony lesions. 2 screws at the distal tibia. Soft tissues: No tibiotalar joint effusion. Achilles tendon appears normal. No radiopaque foreign body seen. IMPRESSION: No radiopaque foreign body seen. Ultrasound could be considered for further evaluation. Dictated by: Sergio Castro M.D. on 02/15/2025 at 1:34 Approved by: Sergio Castro M.D. on 02/15/2025 at 1:35
--- NOTE | 2025-02-15 01:17 | PC.NURSE ---
Pt states I have glass in my foot that needs to be pulled out. Verbal order per Dr. Kay for xray at this time.
[2025-02-15 01:23] LABS: Alanine Aminotransferase 30 IU/L (<50); Albumin 3.8 g/dL (3.5-5.0); Albumin Globulin Ratio 1.2 (1.0-2.8); Alkaline Phosphatase 106 U/L (38-126); Blood Urea Nitrogen 22 mg/dL (9-20); Calcium 8.7 mg/dL (8.4-10.2); Carbon Dioxide 30 mmol/L (22-32); Chloride 104 mmol/L (98-107); Creatine Kinase 115 U/L (55-170); Estimated Glomerular Filt Rate > 60 mL/min (>60); Globulin 3.2 g/dL (1.7-4.1); Glucose 119 mg/dL (70-99); HEMOLYSIS < 15 (0-50); Lipase 38 U/L (23-300); Potassium 3.9 mmol/L (3.4-5.1); Sodium 139 mmol/L (137-145); Total Protein 7.0 g/dL (6.3-8.2)
[2025-02-15] MEDS: ACETAMINOPHEN 325 MG TABLET 975 MG PO (01:29)
[2025-02-15 01:34] LABS: Troponin I < 0.012 ng/mL (0.01-0.034)
== END 2025-02-15 02:16 | disposition home or self-care (01) ==
PROVIDERS: Emergency Provider Emergency Medicine
DX: Z02.89 Encounter for other administrative examinations (principal); M25.562 Pain in left knee; M25.561 Pain in right knee; S99.922A Unspecified injury of left foot, initial encounter; X58.XXXA Exposure to other specified factors, initial encounter; Z86.79 Personal history of other diseases of the circulatory system
CPT/HCPCS: 36415; 71045; 73620; 80053; 82550; 83690; 84484; 85025; 93005; 99283; 99284